=== PATIENT | female | born 1975 | race African-American/Black ===

== ENCOUNTER 2021-10-14 17:44 | Outpatient (CLI) | payer OTHER, SELFPAY ==
--- NOTE | 2021-10-14 17:54 | CT_ITS ---
STUDY: CT CHEST, ABDOMEN T PELVIS WITH CONTRAST REASON FOR EXAM: Female, 46 years old. staging for rectal squamous cancer RADIATION DOSAGE (If Supplied By Facility): CTDIvol = ( 11.86 ) mGy, DLP = ( 1071.09 ) mGycm TECHNIQUE: Transaxial imaging was performed following intravenous administration of Oral and amp; IV Readi-CAT and amp; 100mL Isovue-370. Individualized dose optimization techniques were used for this CT. COMPARISON: No relevant priors. FINDINGS: CHEST The lungs are normal. There is no demonstrated pleural abnormality. Normal heart and pericardium. Normal mediastinum. Normal hilar regions. Normal unenhanced pulmonary arteries. Normal aorta arch and descending thoracic aorta. Dorsal spine demonstrates mild spondylosis. There is no demonstrated abnormality of the visualized upper abdomen. ABDOMEN The visualized lung bases are unremarkable. The visualized portions of the heart are within normal limits. Normal liver. Normal gallbladder and extrahepatic biliary system. Normal spleen. Normal pancreas. Normal bilateral adrenal glands. Normal right kidney. Tiny nonobstructing left renal calculus. Normal visualized stomach. Normal small intestine. There is thickening of the oconnell of the rectum which may be consistent with clinical history of rectal carcinoma.. The appendix is visualized and appears normal. Normal abdominal aorta. Normal inferior vena cava. Normal retroperitoneum. Normal abdominal wall. Normal osseous structures. PELVIS Normal urinary bladder. There is no pelvic fluid. There is no pelvic lymphadenopathy Normal visualized pelvic arteries. Uterus not visualized which may be consistent with hysterectomy. Tiny right adnexal cyst likely ovarian measuring approximately 1 cm in size. Normal abdominal wall. Lumbar spine demonstrates mild spondylosis.. CT/CT Chest, Abd, Pel w/Contrast IMPRESSION: Findings which may be consistent with known rectal carcinoma.. Nonvisualization of uterus consistent with hysterectomy and probable tiny right ovarian cyst. No evidence for retroperitoneal lymphadenopathy No evidence for hepatic lung or bone metastasis. PET scan would be useful for further evaluation if clinically warranted Left nephrolithiasis Electronically Signed: Mono Adkins MD at 18:45 EST , Service support ,
== END 2021-10-14 23:59 | disposition short-term general hospital (02) ==
LOC: CT 17:46
PROVIDERS: Visit Provider Student in an Organized Health Care Education/Training Program
DX: C20 Malignant neoplasm of rectum (principal)
CPT/HCPCS: 71260; 74177; Q9967

== ENCOUNTER 2021-10-19 16:07 | Outpatient (CLI) | payer OTHER, SELFPAY ==
--- NOTE | 2021-10-19 16:08 | MRI_ITS ---
EXAM: MR PELVIS WITHOUT AND WITH INTRAVENOUS CONTRAST : 1975 CLINICAL INDICATION: squamous cancer of the rectum -- eval extent of disease TECHNIQUE: Multiplanar and multisequence MR images of the pelvis without and with intravenous contrast. This report was created using [employer] report [employer] technology. CONTRAST: IV 15ml Dotarem COMPARISON: CT abdomen October 14, 2021 FINDINGS: BOWEL: A 2.5 cm mass located within the proximal rectum extending to the superior portion of the anal sphincter without discrete involvement of the sphincter. The lesion appears to involve the anterior portion of the muscularis propria without apparent involvement of the perirectal fat consistent with a T2 lesion. APPENDIX: No evidence of acute appendicitis. INTRAPERITONEAL SPACE: Unremarkable. No ascites or other fluid collection. BLADDER: Urinary bladder is normal. REPRODUCTIVE: 2.2 cm right ovarian lesion suggestive of a corpus luteum. Ovaries are otherwise unremarkable. Uterus is absent. Vaginal cavity appears normal. SUBPERITONEAL SPACE: 8 mm left posterior perirectal nodule noted as well as 7 mm nodule posteriorly within the right perirectal space no uncertain significance. BONES/JOINTS: Unremarkable. SOFT TISSUES: No abdominal wall hernia. LYMPH NODES: No parailiac lymphadenopathy. MRI/Pelvis W/WO Contrast IMPRESSION: 2.5 cm rectal mass extending to the superior portion of the anal sphincter without obvious involvement of the sphincter. Tumor extension to the muscularis propria consistent with a T2 lesion. No involvement of the adjacent mesorectal fat. Subcentimeter perirectal nodes of uncertain significance. at 1235 Reported and signed by: Salvatore Dang MD Electronically Signed: Salvatore Dang MD at 12:34 EST ,
--- NOTE | 2021-10-19 16:08 | MRI_ITS ---
STUDY: MRI ABDOMEN WITH AND WITHOUT CONTRAST REASON FOR EXAM: Female, 46 years old. suspective liver hemangioma, has been stable TECHNIQUE: Standardized fat and water weighted pulse sequences were obtained in all 3 orthogonal planes post contrast administration. IV Yes YES was administered for the contrast portion of the examination. COMPARISON: None. FINDINGS: The visualized lung bases are unremarkable. The visualized portions of the heart are within normal limits. 3 cm round T1 isointense, T2 slightly hyperintense mass of the medial aspect of the posterior segment right lobe of the liver between the right portal vein and inferior vena cava most conspicuous on the arterial phase images which demonstrates diffuse contrast enhancement that gradually decreases over time with less conspicuity on the portal venous phase images and normal enhancement on the delayed nephrographic phase images. This is not consistent with a hemangioma. Differential diagnosis includes hepatic adenoma which is favored, focal nodular hyperplasia, hepatocellular carcinoma, or solitary metastasis. Normal gallbladder and extrahepatic biliary system. Normal spleen. Normal pancreas. Normal bilateral adrenal glands. Normal right kidney. Normal left kidney. Normal visualized stomach. Normal small intestine. Normal colon. The appendix is visualized and appears normal. Normal abdominal aorta. Normal inferior vena cava. Normal retroperitoneum. Normal abdominal wall. Normal osseous structures. MRI/MRI Abd WITH and W/O Contrast IMPRESSION: 3 cm enhancing mass in the medial posterior segment right lobe of the liver adjacent to the inferior vena cava. Differential diagnosis includes hepatic adenoma, focal nodular hyperplasia, hepatocellular carcinoma, or solitary metastasis. Electronically Signed: Steven Echevarria MD at 8:48 EST Tel , Service support ,
== END 2021-10-19 23:59 | disposition short-term general hospital (02) ==
LOC: MRI 16:08
PROVIDERS: PCP Nurse Practitioner Primary Care; Referring Provider Nurse Practitioner Primary Care; Visit Provider Nurse Practitioner Primary Care
DX: K76.9 Liver disease, unspecified (principal)
CPT/HCPCS: 72197; 74183; A9575; A4216

== ENCOUNTER 2021-10-23 07:25 | Day surgery (SDC) | payer OTHER, SELFPAY ==
[2021-10-23] VITALS (7 sets, daily range): BP systolic 103–123; BP diastolic 76–81; PULSE 68–77; RESP 16; TEMP 36.3–37; O2SAT 100; BMI 26.0
--- NOTE | 2021-10-23 07:44 | HP.PCM_ITS ---
History and Physical Date of Admission: 10/23/21 Date of Service: 10/15/21 MR#:[id number]: FABBY ELKINS [id number] #:[id number]:1975 Provider:Pina Nance/Sex: 46/F [facility] Vital Signs 10/15/21 09:09 Height 5 ft 8 in Weight: 166 lb 2 oz BMI 25.2 BP 142/81 H Blood Pressure Location Rt brachial Position Sitting Respiration 18 Pulse 91 Pulse Source NIBP Temp 97.9 F Temp Source Temporal Pulse Oximetry (%) 98 Oxygen Delivery Method room air Intake Visit Reasons: Port Placement Consult Chief Complaint: port insertion Spike Driver Required: No Is patient in pain?: No Allergies lisinopril Allergy (Verified 10/15/21 09:10) ANTIHYPERTENSIVE peanut Allergy (Verified 10/15/21 09:10) Angioedema shellfish derived Allergy (Verified 10/15/21 09:10) Angioedema Medications omeprazole 40 mg capsule,delayed release 40 mg PO DAILY 10/07/21 [History Confirmed 10/15/21] polyethylene glycol 3350 17 gram/dose oral powder 17 g PO DAILY 10/07/21 [History Confirmed 10/15/21] linaclotide 145 mcg capsule 145 mcg PO QAM 10/08/21 [History Confirmed 10/15/21] multivitamin 1 tab PO DAILY 10/13/21 [History Confirmed 10/15/21] lidocaine-prilocaine 2.5 %-2.5 % topical cream 1 applic TOPICAL ONCE PRN 30 Days #30 g 10/14/21 [Rx Confirmed 10/15/21] ondansetron 4 mg disintegrating tablet 4 mg PO Q8H PRN #30 tab 10/14/21 [Rx Confirmed 10/15/21] Is last menstrual period known: No Post menopausal: Yes Patient : No PFSH Medical History Encounter for education GERD (gastroesophageal reflux disease) Hypertension Liver lesion Surgical History History of hysterectomy Family History Grandfather Colon cancer Mother Diabetes Hypertension Grandmother Kidney disease Father Cancer unsure of exact diagnosis (maybe lung/colon) Social History Smoking Status: Light Smoker (<10/day) Tobacco: How many years used: 20 alcohol intake: former substance use type: marijuana HPI HPI HPI: FABBY ELKINS, is a 46 F who presents to the office today for port placement due to squamous cell carcinoma of the rectum patient also has a liver lesion seen on CT in August. ROS General General: Yes weight change and fatigue HEENT HEENT: No difficulty swallowing, eye surgery or swollen glands Skin Skin: No rash or changing moles Musc Musculoskeletal: No back problems, arthritis, rheumatoid arthritis, gout or joint pain Cardio Cardiovascular: Yes high blood pressure; No murmur, pacemaker, heart disease, atrial fibrillation, heart attack, heart stent, palpitations, shortness of breat with exertion or chest pain Psych Psychiatric: No depression or anxiety Resp Respiratory: No shortness of breath, No sleep apnea, No cough, No COPD, No asthma, No emphysema and No wheezing Gastro Gastrointestinal: Yes abdominal pain, No nausea or vomiting, No diarrhea, Yes constipation, Yes blood in stool, Yes acid reflux, No hemorrhoids, No ulcers, No gallbladder problem and Yes black,tarry stools Additional Details: Nausea, no vomiting Pepe Hematologic: No blood thinners, No blood disorders, No bleeding and No anemia Neuro Neurologic: No abnormal speech and No confusion Exam Const General: cooperative, healthy appearing, comfortable and no acute distress Neck Neck: normal visual inspection and supple Chest Other: Normal inspection and palpation of bilateral upper chest Resp Effort & Inspection: normal respiratory effort Cardio Rate: regular rate GI Inspection: non-distended Palpation: soft, no guarding and nontender Skin General: no rashes or lesions noted Neuro General: patient oriented x3 Psych Affect: normal affect COVID (Procedure Consent) Procedure Criteria Procedure Criteria: Yes Elective The surgeon/proceduralist and patient have discussed in detail the risk of exposure to and/or potential harm posed by the COVID-19 virus with having a surgery/procedure at this time versus the risk of delaying the surgery/procedure. It is not possible to know either the risk of delaying the surgery or procedure or chance of getting an infection with perfect accuracy, but a joint decision was made between the patient and the surgeon/proceduralist to proceed at this time with the scheduled surgery/procedure as indicated on the consent form. Assessment and Plan Assessment and Plan (1) Encounter for insertion of venous access port: Status: Acute (2) Squamous cell carcinoma of rectum: Status: Acute (3) Liver lesion: Status: Chronic Comment: First noted in March 2017, stable by imaging August 2021. Plan - Dr. Aggie Moon MD: Patient has had her COVID-vaccine. I have discussed above with the patient- Port-a-Cath placement. Right possible left?we will plan for next week/the week of 10/19 for port placement Patient has been counseled as to the risks/benefits of the procedure. I have explained the risks of the surgery, including but not limited to: infection, bleeding, injury to any blood vessels/nerves, injury to lungs (such as pneumothorax or hemothorax and need for chest tube), not having any access, nonfunctioning of port due to thrombosis, infection of port, etc. the patient understands and agrees to proceed. I have answered all the patient's questions to the patient?s satisfaction and the patient has no further questions. Aggie Moon M.D. Pager: [phone] [facility] [address] [place] [address], [facility], [address] [place] [address] Office: [phone] Coding Level of Care Code Off vis,new,level 3 Diagnoses Encounter for insertion of venous access port Z45.2 Squamous cell carcinoma of rectum C20 Liver lesion K76.9 10/15/21 0923<Electronically signed by Aggie Moon MD>Date Aggie Moon MD
[2021-10-23] MEDS: Lactated Ringers 1,000 ML 30 ML IV (08:08)
[2021-10-23] MEDS: Cefazolin 2 GM in 0.9% Normal Saline 100 ML IV (09:26)
--- NOTE | 2021-10-23 09:56 | OP.PCM_ITS ---
Report of Operation Date of Procedure: 10/23/21 Pre-Operative Diagnosis: z45.2, squamous cell carcinoma of the rectum Post-Operative Diagnosis: Same Surgery/Procedure Performed:: 1. Placement of right IJ Port-A-Cath 2. Use of fluoroscopy 3. Use of ultrasound Surgeon: Aggie Moon Type of Anesthesia: Local MAC Anesthesiologist: Lenin Smith Special Medications: Ancef 2 g IV x1 Specimen's removed: None Description of Procedure: After informed consent was given, the patient was brought to the operating room and placed in the supine position. Appropriate time out protocol was followed. Patient was then given IV conscious sedation for anesthesia. The patient's right upper chest and neck were then prepped with a surgical skin preparation and sterile surgical drapes were placed. After proper landmarks were ascertained, the skin at the upper right chest area was then infiltrated with 1:1 mixture of 1% lidocaine with epinephrine and 0.5% marcaine. A needle trocar was then inserted into the right internal jugular vein with ultrasound guidance-multiple vessels were viewed with u/s and the right IJ was chosen-- and there was good aspiration of venous blood. A wire was then threaded into the needle trocar and this was visualized under fluoroscopy to ensure that the wire was in the superior vena cava. Once this was done, then the needle trocar was removed. A small skin vee was made with an 11 blade knife at the wire entrance site. The dilator with the introducer sheath anabell ched was then placed over the wire into the right internal jugular vein via the Seldinger technique and this was visualized under fluoroscopy. The dilator and sheath were in proper position as visualized by fluoroscopy. A subcutaneous pocket was then created caudad to the catheter insertion site. A transverse skin incision was made after the skin and subcutaneous tissues were infiltrated with local anesthetic. Blunt dissection was then used to create a space large enough for placement of the subcutaneous port. The catheter was then tunneled into the subcutaneous pocket. The wire and dilator were then removed. The catheter was then threaded into the introducer sheath and was positioned with its tip at the junction of the superior vena cava and the right atrium as visualized under fluoroscopy. The excess catheter was transected. The catheter was then attached to the subcutaneous port using manufacturers guidelines. The catheter was flushed with a heparin saline mixture prior to placement. Hemostasis was carefully controlled with electrocautery. The port was sutured to the subcutaneous fascia using 2-0 Vicryl suture at two sites. The port was then placed in the subcutaneous pocket. The incision were reapproximated with interrupted subdermal 3-0 vicryl sutures. The skin was reapproximated with 3-0 nylon suture in a interrupted fashion. Steristrips were used for reinforcement of the skin closure at IJ insertion site and a sterile opsite dressings were applied. The patient tolerated the procedure well. Grafts/Implants Used: [employer] PowerPort isp M.R.I. 6Fr Lot [id number]
--- NOTE | 2021-10-23 09:58 | EX.PCM.DISCH ---
Discharge Instructions Procedure Port-A-Cath Diet Discharge Diet: Light diet - advance as tolerated Activity May shower in (days): 5 (Keep port site clean and dry x5 days. Neck incision okay to get wet after 1 day. Okay to lower shower and upper sponge bath. OR okay to taper off port site with a Ziploc bag to shower) Lifting Restrictions: No lifting > 15 pounds for 3 days with the arm on the side of the port Dressing / Incision Call your doctor if your incision/area has: Continuous Slow Oozing, Sudden Increased Bleeding, Increased Pain/ Swelling, Increased Redness, Foul Smelling Discharge and Swelling at the incision site Call your doctor if you observe: Fever of 101 or Higher Change Dressing in: 2 days Follow Up Care Please Follow Up With: Aggie Moon MD When: In 10 days for permanent suture removal?call office for appointment Test Results: Test results from this visit will be discussed in further detail at your follow-up appointment, if applicable. Discharge Plan Admission Attending Provider: Aggie Moon Primary Care Provider: Paco Saul NP Discharge Orders/Prescriptions Prescriptions: Continued Linzess 145 mcg capsule 145 mcg PO QAM RF: 0 omeprazole 40 mg capsule,delayed release(DR/EC) 40 mg PO DAILY RF: 0 polyethylene glycol 3350 [Miralax] 17 gram/dose powder 17 g PO BID RF: 0 multivitamin Tablet 1 tab PO DAILY RF: 0 lidocaine-prilocaine 2.5-2.5 % cream 1 applic topical ONCE PRN (Reason: port access) 30 Days Qty: 30 RF: 2 ondansetron 4 mg tablet,disintegrating 4 mg PO Q8H PRN (Reason: nausea and vomiting) Qty: 30 RF: 2 Referrals / Follow Up: Paco Saul NP, [employer] GASIFICATION TECHNICIAN-C [Primary Care Provider] - Disposition Disposition (needs filled in before D/C Order can be placed): Home, Self Care
--- NOTE | 2021-10-23 10:07 | RAD_ITS ---
STUDY: X-RAY CHEST REASON FOR EXAM: Female, 46 years old. Port -- pacu TECHNIQUE: Single AP portable view of the chest. COMPARISON: None. FINDINGS: EKG electrodes are seen. A right-sided portacatheter is present with the tip at the junction of the superior vena cava and right atrium. The lungs are clear and expanded. There is no demonstrated pleural abnormality. Normal size heart. Normal mediastinum and bradley. Normal visualized pulmonary arteries. Normal visualized aortic arch and descending thoracic aorta. Normal visualized thoracic spine. Normal visualized ribs, clavicles, and shoulders. There is no demonstrated abnormality of the visualized soft tissue structures of the upper abdomen. RAD/CXR for Line Placement IMPRESSION: The tip of the right francine catheter is at the junction of the superior vena cava and right atrium. Electronically Signed: Hal Fontanez MD at 10:41 EST ,
== END 2021-10-23 23:59 | disposition home or self-care (01) ==
LOC: SDC 07:30 → AC 07:30
PROVIDERS: PCP Nurse Practitioner Primary Care; Referring Provider Surgery; Visit Provider Surgery
PROC: (CPT 36561; principal; 2021-10-23 08:45)
DX: Z45.2 Encounter for adjustment and management of vascular access device (principal); C20 Malignant neoplasm of rectum; K76.89 Other specified diseases of liver; I10 Essential (primary) hypertension; K21.9 Gastro-esophageal reflux disease without esophagitis; F32.A Depression, unspecified; G25.81 Restless legs syndrome; Z78.0 Asymptomatic menopausal state; Z87.19 Personal history of other diseases of the digestive system; Z79.899 Other long term (current) drug therapy; F17.200 Nicotine dependence, unspecified, uncomplicated
CPT/HCPCS: 36561; 00532; 71045; 77001; J7120; J2405

== ENCOUNTER 2021-12-15 12:31 | Outpatient (CLI) | payer OTHER, SELFPAY ==
[2021-12-15] MEDS: 0.9% Saline Lock 10 ML Syringe IV (12:30)
[2021-12-15] MEDS: 0.9 % NaCl (Sterile) Posiflush 10 mL IV (12:35)
--- NOTE | 2021-12-15 12:35 | CT_ITS ---
STUDY: CTA CHEST REASON FOR EXAM: Female, 46 years old. R/o PE, hemoptysis RADIATION DOSAGE (If Supplied By Facility): CTDIvol = ( 9.99 ) mGy, DLP = ( 375.31 ) mGycm TECHNIQUE: The examination was performed with the intravenous administration of IV 100mL Isovue-370. Post-processing of the angiographic images was performed, with multiplanar reformation and 3D reconstruction. Individualized dose optimization techniques were used for this CT. COMPARISON: Comparison is made with prior examination dated 10/14/2021. FINDINGS: Stable small benign-appearing bilateral axillary lymph nodes. A right-sided Port-A-Cath are seen with the tip in the superior vena cava. Normal enhancement of the main pulmonary artery and right and left pulmonary arteries. Normal enhancement of the bilateral peripheral pulmonary arteries. There is no demonstrated pulmonary embolism. Normal thoracic aorta and visualized great vessels. There is no demonstrated aortic dissection. Normal heart and pericardium. Normal mediastinum. Normal hilar regions. Normal visualized trachea and bronchi. The lungs are well expanded. Normal pulmonary parenchyma. Normal pleura. Normal chest wall structures. There are degenerative changes of thoracic spine. Normal visualized upper abdomen. CT/CTA Chest W/WO Contrast IMPRESSION: Normal CTA chest examination, without a demonstrated pulmonary embolism or arterial dissection. Electronically Signed: Hal Fontanez MD at 13:38 EDT ,
== END 2021-12-15 23:59 | disposition home or self-care (01) ==
PROVIDERS: PCP Nurse Practitioner Primary Care; Referring Provider Nurse Practitioner Family; Visit Provider Nurse Practitioner Family
DX: R04.2 Hemoptysis (principal); C20 Malignant neoplasm of rectum
CPT/HCPCS: 71275; Q9967; A4216

== ENCOUNTER → 2022-02-08 | Outpatient (CLI) | payer OTHER, SELFPAY ==
--- NOTE | 2022-02-08 15:00 | CT_ITS ---
EXAM: CT CHEST, ABDOMEN AND PELVIS WITH INTRAVENOUS CONTRAST CLINICAL INDICATION: RECTAL CANCER TECHNIQUE: Helically acquired images were obtained of the chest, abdomen and pelvis with intravenous contrast. This CT exam was performed using one or more of the following dose reduction techniques: automated exposure control, adjustment of the mA and/or kV according to patient size, and/or use of iterative reconstruction technique. This report was created using [employer] report generation technology. CONTRAST: IV 100mL Isovue-300 RADIATION DOSE: CTDIvol = 14.15 mGy, DLP = 827.26 mGy-cm COMPARISON: Dec 15 2021 12:57pm CTA CHEST. PET Oct 21 2021 9:30am REPORT ONLY NO IMAGES. CT TX 10.23.21 FINDINGS: CHEST: LUNGS AND PLEURAL SPACES: Unremarkable. No mass. No consolidation or edema. No pleural effusion or thickening. No pneumothorax. HEART: Unremarkable. Heart size is normal. No pericardial effusion. No significant coronary artery calcifications. MEDIASTINUM: Unremarkable. No mediastinal or hilar adenopathy. Esophagus is unremarkable. No hiatal hernia. THYROID: Unremarkable. No thyroid lesions. ABDOMEN: LIVER: There is hepatomegaly with diffuse hepatic enlargement. GALLBLADDER AND BILE DUCTS: Unremarkable. No calcified gallstones. No gallbladder distention or wall edema. No intra- or extrahepatic biliary ductal dilation. PANCREAS: Unremarkable. No focal cystic or solid mass. SPLEEN: Unremarkable. Normal size without focal cystic or solid mass. ADRENALS: Unremarkable. No nodules. KIDNEYS AND URETERS: Non obstructive 2 mm left renal parenchymal stones. Normal renal size and position. STOMACH AND BOWEL: Stool throughout the colon. This can suggest constipation. Diffuse wall thickening of the anus and rectum suggesting underlying mass. No stomach or bowel distention. PELVIS: APPENDIX: The appendix is visualized and appears normal. BLADDER: Normal urinary bladder. REPRODUCTIVE: There is absence of the uterus consistent with a prior hysterectomy. CHEST, ABDOMEN and PELVIS: INTRAPERITONEAL SPACE: Unremarkable. No ascites or other fluid collection. No free air. BONES/JOINTS: Abnormal sclerotic focus along the superior endplate on the left side of L3. This is concerning for metastatic disease. There are multi-level degenerative changes of the thoracic spine. There are diffuse degenerative changes of the visualized lumbar spine. Discogenic endplate changes at L2-3. SOFT TISSUES: There is an umbilical hernia containing fat. VASCULATURE: Unremarkable. Aorta is non-dilated. No aortic dissection. No obvious central pulmonary embolism although this study was not performed with the pulmonary embolism protocol. LYMPH NODES: Unremarkable. No enlarged lymph nodes. TUBES, LINES AND DEVICES: There is a right Port-A-Cath and/or mediport in place. The tip is in the superior vena caval - atrial junction. CT/CT Chest, Abd, Pel w/Contrast IMPRESSION: 1. There is hepatomegaly with diffuse hepatic enlargement. 2. Stool throughout the colon. This can suggest constipation. 3. There focal wall thickening of the anus and rectum suggesting underlying mass. 4. Abnormal sclerotic focus along the superior endplate on the left side of L3. This is concerning for metastatic disease. Electronically Signed: Robles Pierre MD at 20:25 EDT ,
[2022-02-08] MEDS: 0.9% Saline Lock 10 ML Syringe IV (15:21)
== END | disposition home or self-care (01) ==
PROVIDERS: PCP Nurse Practitioner Primary Care; Referring Provider Internal Medicine Hematology & Oncology; Visit Provider Internal Medicine Hematology & Oncology
DX: C20 Malignant neoplasm of rectum (principal)
CPT/HCPCS: 71260; 74177; Q9967; A4216

== ENCOUNTER → 2022-02-24 | Outpatient (CLI) | payer OTHER, SELFPAY ==
--- NOTE | 2022-02-24 07:41 | NM_ITS ---
CLINICAL: Female, 46 years old. H/O RECTUM CA ABN L3 ON CT, ? METS WHOLE BODY NUCLEAR BONE SCAN TECHNIQUE: Following the IV administration of 25.7 mCi of Tc MDP, whole body bone imaging was performed with a gamma camera following a three hour delay. COMPARISON STUDIES : NM - None. CR - Not available for review at this time. CT - comparison is made with prior CT scan the abdomen dated 02/08/2022. MR - Not available for review at this time. US - Not available for review at this time. FINDINGS: There is a normal concentration of radiopharmaceutical throughout the axial and appendicular skeletal system without either a focal decrease or increase in uptake. NM/Bone Scan Whole Body IMPRESSION: Normal whole body nuclear bone scan. Electronically Signed: Hal Fontanez MD at 12:51 EDT ,
[2022-02-24] MEDS: 0.9% Saline Lock 10 ML Syringe IV (08:05)
== END | disposition home or self-care (01) ==
LOC: NM 07:39
PROVIDERS: PCP Nurse Practitioner Primary Care; Visit Provider Internal Medicine Hematology & Oncology
DX: C20 Malignant neoplasm of rectum (principal)
CPT/HCPCS: 78306; A9503

== ENCOUNTER 2022-03-22 14:24 | Emergency (ER) | payer OTHER, SELFPAY ==
[2022-03-22 14:25] VITALS: BP 135/96; PULSE 105; RESP 16; TEMP 37.3; O2SAT 99; BMI 25.8
--- NOTE | 2022-03-22 15:40 | EKG12_ITS ---
Test Reason : FEVER Blood Pressure : / mmHG Vent. Rate : 093 BPM Atrial Rate : 093 BPM P-R Int : 160 ms QRS Dur : 070 ms QT Int : 344 ms P-R-T Axes : 046 037 031 degrees QTc Int : 427 ms Normal sinus rhythm Normal ECG Confirmed by CATE MCDANIELS, LEONOR ([id number]), publication editor DAVID JUARES ([id number]) on 03/24/2022 8:47:53 AM Referred By: PEDRO/LAKISHA Confirmed By:LEONOR ESPOSITO MD
--- NOTE | 2022-03-22 15:42 | EX.ED.DYSGE1 ---
HPI History of Present Illness Chief Complaint: Fever Informant: patient Narrative Narrative: Patient presents with generally not feeling well. She states she has been doing pretty well recently. But as of this morning she started with several episodes of diarrhea. She states it was yellow and foul-smelling. No blood. She has had some mild abdominal cramping but is not having any pain. She had some nausea but no vomiting. Highest temperature is about 100.6. She states occasionally she coughs but is more just clearing her throat. She is not short of breath or having chest pain. She does urinate frequently and is somewhat uncomfortable but that has been chronic since she had radiation at the beginning of the year for colorectal cancer. Her last chemo was back in November. Her last antibiotics were 2 to 3 days of Augmentin about 1 month ago. She stopped it due to GI upset. She has never had C. difficile colitis. This patient does have a history of colorectal cancer diagnosed this year. She had multiple radiation treatments and then chemo. She is following up with her [facility] surgeon in April. She has not had any surgery at this point. She does have some pain around the bladder and rectum from the radiation but this is not new or different in any way. Patient feels that this is likely due to not taking care of herself. She states after she got over the chemo, she really jumped back into her old ways. She started smoking again. She has been drinking alcohol. She states she has been eating out and eating a lot of fast food. She is not eating well. She is not drinking fluids right. She is working full-time. She just feels as though she is running herself down and it finally caught up today. [facility] Medical History Alcohol use Chills Chronic bronchitis CINV (chemotherapy-induced nausea and vomiting) Depression Diarrhea due to drug Easy bruising Encounter for education Excessive bleeding GERD (gastroesophageal reflux disease) Hemoptysis History of echocardiogram History of IBS History of stress test Hypertension Leg cramps Liver lesion Marijuana use Mucositis (ulcerative) due to antineoplastic therapy Oral candidiasis Port-A-Cath in place Restless legs Smoker UTI (urinary tract infection) Home Medications polyethylene glycol 3350 17 gram/dose oral powder (Miralax) 17 g PO BID 10/07/21 [History Last Taken Unknown] linaclotide 145 mcg capsule (Linzess) 145 mcg PO QAM 10/08/21 [History Last Taken Unknown] multivitamin 1 tab PO DAILY 10/13/21 [History Last Taken Unknown] lidocaine-prilocaine 2.5 %-2.5 % topical cream 1 applic topical ONCE PRN port access 30 days #30 grams 10/14/21 [Rx Last Taken Unknown] ondansetron 4 mg disintegrating tablet 4 mg PO Q8H PRN nausea and vomiting #30 tabs 10/14/21 [Rx Last Taken Unknown] MAGIC MOUTH WASH (BMX) 180 mL suspension 15 ml PO .Q6HR PRN mouth sores #180 mL 11/10/21 [Rx Last Taken Unknown] lidocaine 5 % topical ointment 1 applic topical TID PRN pain #60 grams 11/18/21 [Rx Last Taken Unknown] nystatin 100,000 unit/mL oral suspension 5 ml PO Q6H #473 mL 11/23/21 [Rx Last Taken Unknown] silver sulfadiazine 1 % topical cream 1 applic topical TID desquamation #85 grams 12/07/21 [Rx Last Taken Unknown] nirmatrelvir 300 mg (150 mg x 2)-ritonavir 100 mg tablet (EUA) (Paxlovid 300 mg () See Rx Instructions PO .COMPLEX #30 tabs 03/22/22 [Rx Last Taken Unknown] Allergy/AdvReac Type Severity Reaction Status Date / Time lisinopril Allergy ANTIHYPERTE Verified 03/22/22 14:27 NSIVE peanut Allergy Angioedema Verified 03/22/22 14:27 shellfish derived Allergy Angioedema Verified 03/22/22 14:27 Family History Grandfather Colon cancer Mother Diabetes Hypertension Grandmother Kidney disease Father Cancer unsure of exact diagnosis (maybe lung/colon) Surgical History History of colonoscopy History of esophagogastroduodenoscopy (EGD) History of hysterectomy Social History Smoking Status: Current every day smoker tobacco type: cigarettes Tobacco: How many years used: 20 alcohol intake: former substance use type: marijuana ROS ROS ED Constitutional Constitutional ED: Reports chills and other Details: See history of present illness. Patient states she also gets chills sometimes at night but that has been going on for well over a month unchanged. Eyes Eyes: Denies blurry vision or change in vision ENT ENT ED: Denies rhinorrhea or sore throat Cardiovascular Cardiovascular: Denies chest pain or palpitations Respiratory/Chest Respiratory/Chest: Denies cough, dyspnea or sputum Gastrointestinal Gastrointestinal: Reports abdominal pain, diarrhea and nausea; Denies constipation, melena or vomiting Genitourinary Genitourinary ED: Reports dysuria; Denies urinary frequency Musculoskeletal Musculoskeletal: Reports arthralgias, myalgias and other Details: Patient also admits that today she just has lots of diffuse myalgias. No one area is especially sore. Integumentary Denies rash Neurologic Neurologic: Denies paresthesias or weakness Endocrine Endocrinology: Denies polydipsia or polyuria Hematologic/Lymphatic Hematologic/Lymphatic: Denies anemia EXAM Physical Exam Const Vital Signs: 03/22/22 14:25 03/22/22 15:24 Temperature 99.2 F H Temperature Source Temporal Pulse Rate 105 H Respiratory Rate 16 Respiratory Effort Short of Breath Blood Pressure 135/96 H Blood Pressure Mean 109 Pulse Ox 99 Oxygen Delivery Method Room Air Positive well nourished Constitutional Narrative: Despite her history and story, she is nontoxic in appearance. However she does look like she has very dry mucous membranes. General Appearance ED: NAD HEENT Reports dry mucous membranes HEENT Narrative: No sinus tenderness. No nasal drainage. Mouth ED: Yes dry mucous membranes Mouth: dry mucous membranes Eyes EOMs intact bilaterally General Eye ED: Negative for scleral icterus Neck supple and no JVD Resp normal respiratory effort and clear to auscultation bilaterally Resp Narrative: No pain with deep breath. No wheezing without rales or rhonchi Auscultation: Negative for rales or rhonchi Cardio regular rhythm and no murmurs Rate: tachycardic GI non-tender and non-distended GI Narrative: Abdomen is soft. Absolutely no tenderness anywhere. Bowel sounds might be just slightly increased. Auscultation: hyperactive bowel sounds Back/Spine no CVA tenderness Extremity normal to inspection Extremity Narrative: No edema cords or asymmetry. No tenderness. Neuro oriented x3 Psych mental status grossly normal Skin no rashes or lesions noted MDM MDM MDM Narrative Medical decision making narrative: Patient's blood work shows minimal anemia. White counts normal. Electrolytes are normal. LFTs lactic acid is normal. Urine shows a few red cells but she is known this. Her COVID PCR is positive. We discussed options. We will proceed with backslid. She is currently on no medications at all. However, she did have chemotherapy back in November. She had original Moderna series but no boosters. I think this is somebody who may have higher benefit than risk from the medicines. Lab Data Attestation: I reviewed the patient's lab results. Labs: Laboratory Results - last 24 hr 03/22/22 03/22/22 03/22/22 15:45 15:45 15:45 WBC 4.7 RBC 3.68 L Hgb 11.6 L Hct 35.8 L MCV 97.3 MCH 31.5 MCHC 32.4 RDW Std Deviation 47.4 H RDW Coeff of Sandrine 13.2 Plt Count 219 MPV 8.2 Immature Gran % (Auto) 0.400 Neut % (Auto) 77.2 H Lymph % (Auto) 9.5 L [place]asta % (Auto) 12.3 H Eos % (Auto) 0.2 Baso % (Auto) 0.4 Absolute Neuts (auto) 3.7 Absolute Lymphs (auto) 0.45 L Nucleated RBC % 0 Differential Comment SEE COMMENT Platelet Estimate ADEQUATE RBC Morphology N CHROM Anisocytosis 1+ Macrocytosis 1+ Sodium 138 Potassium 3.5 Chloride 106 Carbon Dioxide 26.0 Anion Gap 6 BUN 8 Creatinine 0.70 Estim Creat Clear Calc 100.22 Est GFR (MDRD) Af Amer 116 Est GFR (MDRD) Non-Af 96 BUN/Creatinine Ratio 11.5 Glucose 92 Lactic Acid 0.5 Calcium 9.0 Total Bilirubin 0.40 AST 15 ALT 15 Alkaline Phosphatase 54 Total Protein 7.1 Albumin 3.6 Globulin 3.5 Albumin/Globulin Ratio 1.0 Urine Color Urine Clarity Urine pH Ur Specific [place] Urine Protein Urine Glucose (UA) Urine Ketones Urine Occult Blood Urine Nitrite Urine Bilirubin Urine Urobilinogen Ur Leukocyte Esterase Urine RBC Urine WBC Ur Squamous Epith Cells Urine Bacteria Urine Mucus COVID-19 (PUNEET) 03/22/22 03/22/22 15:45 17:55 WBC RBC Hgb Hct MCV MCH MCHC RDW Std Deviation RDW Coeff of Sandrine Plt Count MPV Immature Gran % (Auto) Neut % (Auto) Lymph % (Auto) Shasta % (Auto) Eos % (Auto) Baso % (Auto) Absolute Neuts (auto) Absolute Lymphs (auto) Nucleated RBC % Differential Comment Platelet Estimate RBC Morphology Anisocytosis Macrocytosis Sodium Potassium Chloride Carbon Dioxide Anion Gap BUN Creatinine Estim Creat Clear Calc Est GFR (MDRD) Af Amer Est GFR (MDRD) Non-Af BUN/Creatinine Ratio Glucose Lactic Acid Calcium Total Bilirubin AST ALT Alkaline Phosphatase Total Protein Albumin Globulin Albumin/Globulin Ratio Urine Color Yellow Urine Clarity Sl. Cloudy Urine pH 7.0 Ur Specific [place] 1.015 Urine Protein Negative Urine Glucose (UA) Normal Urine Ketones Negative Urine Occult Blood 150 H Urine Nitrite Negative Urine Bilirubin Negative Urine Urobilinogen Normal Ur Leukocyte Esterase Negative Urine RBC 10-25 SEEN Urine WBC 0-5 SEEN Ur Squamous Epith Cells 5-10 SEEN Urine Bacteria 2+ Urine Mucus 1+ COVID-19 (PUNEET) Detected Radiography Diagnostic Testing: Clinical Impression(s) from Imaging Studies Chest X-Ray 03/22/22 16:05 IMPRESSION: No acute cardiopulmonary abnormality. Electronically Signed: Salvatore Dang MD at 16:26 EDT , EKG Initial EKG: Comments: EKG done for generalized weakness read by me shows normal sinus rhythm with overall rate of 93. No acute ST elevation or depression. GA interval, QRS duration and QTc normal. Discharge Plan Triage Chief Complaint: Fever ED Provider: Raymundo Ruiz Dx/Rx/DC Orders Clinical Impression: COVID Instructions: Coronavirus Disease 2019 (COVID-19): Caring for Yourself or Others Prescriptions: New Paxlovid (EUA) 300 mg (150 mg x 2)-100 mg tablet See Rx Instructions .ROUTE .COMPLEX Qty: 30 0RF Rx Instructions: take TWO 150 mg tablets of nirmatrelvir with ONE 100 mg tablet of ritonavir twice daily for 5 days No Action Linzess 145 mcg capsule 145 mcg PO QAM Hold Instructions: Order Changed polyethylene glycol 3350 [Miralax] 17 gram/dose powder 17 g PO BID Hold Instructions: Order Changed multivitamin Tablet 1 tab PO DAILY lidocaine-prilocaine 2.5-2.5 % cream 1 applic topical ONCE PRN (Reason: port access) 30 Days Qty: 30 2RF ondansetron 4 mg tablet,disintegrating 4 mg PO Q8H PRN (Reason: nausea and vomiting) Qty: 30 2RF MAGIC MOUTH WASH (BMX) 180 mL suspension 15 ml PO .Q6HR PRN (Reason: mouth sores) Qty: 180 2RF Rx Instructions: diphenhydramine 12.5 mg/5 mL oral liquid 60 mL; aluminum-mag hydroxide-simethicone 400 mg-400 mg-40 mg/5 mL oral susp 60 mL; Lidocaine Viscous 2 % mucosal solution 60 mL; Per 180 mL nystatin 100,000 unit/mL suspension 5 ml PO Q6H Qty: 473 1RF Rx Instructions: swish and swallow lidocaine 5 % ointment 1 applic topical TID PRN (Reason: pain) Qty: 60 3RF Rx Instructions: apply to perianal skin prn pain silver sulfadiazine 1 % cream 1 applic topical TID Qty: 85 2RF Rx Instructions: apply a 1.5 mm thickness Primary Care Provider: Paco Saul NP Referrals: Paco Saul NP, [employer] [Primary Care Provider] - 10-14 Days if not better Disposition Disposition: Home, Self Care
[2022-03-22] MEDS: 0.9% Normal Saline 1,000 ML 1000 ML IV (15:59)
[2022-03-22] MEDS: Ondansetron 4 MG/2 ML Vial IV (15:59)
[2022-03-22 16:04] LABS: Absolute Lymphocyte Count 0.45 X10^3/uL (0.83-4.51); Absolute Neutrophil Count 3.7 X10^3/uL (2.0-7.7); Basophil# 0.02 X10^3/uL; Basophil% 0.4 % (0-1); Eosinophil# 0.01 X10^3/uL; Eosinophils% 0.2 % (0-5); Hematocrit 35.8 % (37-47); Hemoglobin 11.6 g/dL (12.0-15.0); Lymphocyte # 0.45 X10^3/ul (0.83-4.51); Lymphocyte % 9.5 % (19-41); Mean Corp Hgb Conc 32.4 g/dL (32-36); Mean Corpuscular Hgb 31.5 pg (27.0-32.0); Mean Corpuscular Volume 97.3 fL (81-99); Mean Platelet Vol. 8.2 fl (6.2-12.0); Monocyte# 0.58 X10^3/uL; Monocyte% 12.3 % (0-10); NRBC Flagged by Analyzer 0 % (0-5); Neutrophil # 3.65 X10^3/uL (2.7-7.7); Neutrophil % 77.2 % (47-70); POSITIVE DIFFERENTIAL YES; Platelet Count 219 K/mm3 (150-450); RBC Distribution Width CV 13.2 % (11.6-14.6); RBC Distribution Width SD 47.4 fl (35.1-43.9); Red Blood Count 3.68 M/mm3 (4.2-5.4); White Blood Count 4.7 K/mm3 (4.4-11.0)
--- NOTE | 2022-03-22 16:05 | RAD_ITS ---
EXAM: XR CHEST, 1 VIEW CLINICAL INDICATION: cough TECHNIQUE: Frontal view of the chest. This report was created using ID90T report generation technology. COMPARISON: None. FINDINGS: LUNGS AND PLEURAL SPACES: Unremarkable. No consolidation or edema. No pneumothorax. No effusion. HEART: Unremarkable. Normal heart size. MEDIASTINUM: Central airways and mediastinal contour are unremarkable. BONES/JOINTS: Unremarkable. SOFT TISSUES: Unremarkable. TUBES, LINES AND DEVICES: Right internal jugular central venous catheter tip in the proximal superior vena cava. RAD/Chest 1 View (Portable) IMPRESSION: No acute cardiopulmonary abnormality. Electronically Signed: Salvatore Dang MD at 16:26 EDT ,
[2022-03-22 16:08] LABS: Differential Indicated SCAN CRITERIA MET
[2022-03-22 16:20] LABS: AST(SGOT) 15 U/L (15-37); Alanine Aminotransfer ALT/SGPT 15 U/L (13-56); Albumin, Serum 3.6 g/dL (3.2-5.0); Alkaline Phosphatase 54 U/L (45-117); Anion Gap 6 (5-15); BUN 8 mg/dL (7-18); BUN/Creat Ratio 11.5 RATIO (10-20); Chloride 106 mmol/L (98-107); EST Glomerular Filtration Rate 96 mL/min (>60); Est Glom Filt Rate - Afr Amer 116 mL/min (>60); Estimated Creatinine Clearance 100.22 ml/min; Globulin 3.5 g/dL (2.2-4.2); Glucose 92 mg/dL (74-106); Potassium 3.5 mmol/L (3.5-5.1); Protein, Total 7.1 g/dL (6.4-8.2); Sodium Level 138 mmol/L (136-145)
[2022-03-22 16:24] LABS: Lactic Acid 0.5 mmol/L (0.4-1.9)
[2022-03-22] MEDS: Acetaminophen 325 MG Tablet 650 MG PO (16:47)
[2022-03-22 16:49] LABS: Platelet Estimate ADEQUATE (ADEQ)
[2022-03-22 16:50] LABS: Anisocytosis 1+; Macrocytosis 1+; Red Cell Morphology N CHROM NORMAL (NORM C&C)
[2022-03-22 18:18] LABS: Color, Urine Yellow (Yellow); Glucose, Dipstick Normal (Normal); Ketone-Dipstick Negative (Negative); Leukocyte Esterase-Dipstick Negative /ul (Negative); Nitrite-Dipstick Negative (Negative); Occult Blood-Urine 150 /ul (Negative); Protein-Dipstick Negative (Negative); Specific Gravity, Urine 1.015 (1.002-1.030); Urine Bilirubin Dipstick Negative (Negative); Urine Clarity Sl. Cloudy (Clear); Urine Urobilinogen Normal (Normal)
[2022-03-22 18:32] LABS: Red Blood Cells-Urine 10-25 SEEN /hpf (0-5); Squamous Epithelial Cells - UA 5-10 SEEN /hpf (5-10); White Blood Cells 0-5 SEEN /hpf (0-5)
[2022-03-22 18:33] LABS: Bacteria 2+ /hpf (None Seen); Mucous, Urine 1+ /hpf (<or=2+)
[2022-03-22 20:25] VITALS: BP 141/84
== END 2022-03-22 20:32 | disposition home or self-care (01) ==
PROVIDERS: Emergency Provider Emergency Medicine; PCP Nurse Practitioner Primary Care; Visit Provider Emergency Medicine
DX: U07.1 COVID-19 (principal); C19 Malignant neoplasm of rectosigmoid junction; F32.A Depression, unspecified; K21.9 Gastro-esophageal reflux disease without esophagitis; I10 Essential (primary) hypertension; G25.81 Restless legs syndrome; Z87.440 Personal history of urinary (tract) infections; Z92.21 Personal history of antineoplastic chemotherapy; Z92.3 Personal history of irradiation; Z79.899 Other long term (current) drug therapy; F17.210 Nicotine dependence, cigarettes, uncomplicated
CPT/HCPCS: 36591; 71045; 80053; 81001; 83605; 85025; 87086; 87088; 87635; 93005; 96361; 96374; 99282; J7030; J2405; U0003; U0005

== ENCOUNTER 2022-08-09 15:34 | Outpatient (CLI) | payer OTHER, SELFPAY ==
--- NOTE | 2022-08-09 15:45 | CT_ITS ---
STUDY: CT CHEST T ABDOMEN WITH CONTRAST REASON FOR EXAM: Female, 47 years old. Follow up treated SCC of rectum, eval for disease -- WILL RETURN IN 2 HOURS RADIATION DOSAGE (If Supplied By Facility): CTDIvol = ( 11.39 ) mGy, DLP = ( 932.71 ) mGycm TECHNIQUE: Transaxial imaging was performed following intravenous administration of Oral and amp;amp; IV Readi-CAT and amp;amp; 100mL Isovue-370. Individualized dose optimization techniques were used for this CT. COMPARISON: Comparison is made with prior study dated 02/08/2022. FINDINGS: CHEST A right-sided portacatheter is seen with the tip in the superior vena cava. Stable small benign-appearing bilateral axillary lymph nodes. Dense bilateral breast tissues. The lungs are normal. There is no demonstrated pleural abnormality. Normal heart and pericardium. Normal mediastinum. Normal hilar regions. Normal unenhanced pulmonary arteries. Normal aorta arch and descending thoracic aorta. There are mild degenerative changes of the thoracic spine. ABDOMEN Normal liver. Normal gallbladder and extrahepatic biliary system. Normal spleen. Normal pancreas. Normal bilateral adrenal glands. Normal right kidney. Punctate calculus in the upper pole calyx of the left kidney. Normal visualized stomach. Normal small intestine. Normal colon. The appendix is visualized and appears normal. Normal abdominal aorta. Normal inferior vena cava. Normal retroperitoneum. There is a small umbilical hernia containing fat. Discogenic endplate changes once again seen at the L2-L3 level. CT/CT Chest AND Abd W/ Contrast IMPRESSION: Stable examination. Electronically Signed: Hal Fontanez MD at 15:19 EST ,
== END 2022-08-09 23:59 | disposition home or self-care (01) ==
LOC: CT 15:37
PROVIDERS: PCP Nurse Practitioner Primary Care; Referring Provider Student in an Organized Health Care Education/Training Program; Visit Provider Student in an Organized Health Care Education/Training Program
DX: C20 Malignant neoplasm of rectum (principal); K42.9 Umbilical hernia without obstruction or gangrene
CPT/HCPCS: 71260; 74160; Q9967

== ENCOUNTER 2022-08-12 16:21 | Outpatient (CLI) | payer OTHER, SELFPAY ==
--- NOTE | 2022-08-12 16:33 | MRI_ITS ---
EXAM: MR PELVIS WITHOUT AND WITH INTRAVENOUS CONTRAST CLINICAL INDICATION: follow up treated SCC of rectum, eval for disease -- please compare to prior imaging TECHNIQUE: Multiplanar and multisequence MR images of the pelvis without and with intravenous contrast. This report was created using P[employer] report generation technology. CONTRAST: IV 15ml CLARISCAN COMPARISON: MR Pelvis dated October 19, 2021 FINDINGS: BOWEL: No evidence of a rectal mass. Anal sphincter has a normal appearance. Diverticulosis of the colon noted without evidence of acute diverticulitis. APPENDIX: No evidence of acute appendicitis. INTRAPERITONEAL SPACE: Normal. No ascites or other fluid collection. BLADDER: Urinary bladder is normal. REPRODUCTIVE: Uterus is absent. BONES/JOINTS: Normal. No suspicious lytic or blastic abnormality. SOFT TISSUES: Normal. No pelvic wall hernia. VASCULATURE: Normal vascular flow voids. LYMPH NODES: No adenopathy. MRI/Pelvis W/WO Contrast IMPRESSION: No evidence of residual or recurrent rectal neoplasm. Electronically Signed: Salvatore Dang MD at 12:24 EST ,
== END 2022-08-12 23:59 | disposition home or self-care (01) ==
LOC: MRI 16:22
PROVIDERS: PCP Nurse Practitioner Primary Care; Visit Provider Student in an Organized Health Care Education/Training Program
DX: C20 Malignant neoplasm of rectum (principal)
CPT/HCPCS: 72197; A9575

== ENCOUNTER → 2023-02-15 | Outpatient (CLI) | payer BC, SELFPAY ==
--- NOTE | 2023-02-15 14:59 | CT_ITS ---
STUDY: CT CHEST, ABDOMEN T PELVIS WITH CONTRAST REASON FOR EXAM: Female, 47 years old. F/U ANAL CANCER IV CONTRAST ONLY RADIATION DOSAGE (If Supplied By Facility): CTDIvol = ( 11.70 ) mGy, DLP = ( 1061.07 ) mGycm TECHNIQUE: Transaxial imaging was performed following intravenous administration of IV 100mL Isovue-300. Multiplanar coronal and sagittal images were reformatted. Individualized dose optimization techniques were used for this CT. COMPARISON: August 09, 2022 CT scan chest abdomen. February 08, 2022 CT scan chest abdomen and pelvis FINDINGS: CHEST The lungs are normal. There is no demonstrated pleural abnormality. Normal heart and pericardium. Normal mediastinum. Normal hilar regions. Normal unenhanced pulmonary arteries. Normal aorta arch and descending thoracic aorta. There is mild kyphosis of the thoracic spine. There are multi-level degenerative changes of the thoracic spine. There is no demonstrated abnormality of the visualized upper abdomen. There is a relatively stable appearance of the rectosigmoid junction and the perineum. ABDOMEN The visualized lung bases are unremarkable. The visualized portions of the heart are within normal limits. There is a tiny cyst within the anterior aspect of the right hepatic lobe measuring 4 mm stable since prior study. Normal gallbladder and extrahepatic biliary system. Normal spleen. Normal pancreas. Normal bilateral adrenal glands. Normal right kidney. There is a stable punctate stone left kidney. There is no hydronephrosis. Fundus of the stomach is partially decompressed. Allowing for peristalsis, wall is mildly thickened similar to the prior studies. Nonspecific low-lying appearance of the ileocecal valve. There is a decompressed appearance of the colon. There is a low lying partially stool-filled appearance of the cecum. Solid focus of stool filling the cecum and/or potentially fluid measuring up to 4.6 x 3.0 cm. The cecum is sitting directly adjacent to the right side of the rectum. There is a tortuous mildly indistinct appearance of the distal sigmoid and rectum appendix is partially visualized and appears normal. Extends in the midline pelvis. Normal abdominal aorta. Normal inferior vena cava. Normal retroperitoneum. The venous structures are prominent within the left greater than right retroperitoneum and iliac chains. There is degenerative change in the thoracolumbar spine. L2-3 there is a broad left lateral disc bulge with moderate neural foramina narrowing mild to moderate central stenosis. At L3-L4 there is a broad disc bulge and facet arthropathy moderate neural foramina narrowing mild to moderate central stenosis. At L4-L5 there is a minimal broad disc bulge no significant neural foramina narrowing or central stenosis. At L5-S1 there is disc space narrowing no significant neural foramina narrowing. There is mild degenerative change within the bilateral hip joints. PELVIS Normal urinary bladder. Normal visualized small intestine. As mentioned above there is a low-lying placenta decompressed appearance of the cecum with the exception for solid stool within the cecum. There is no pelvic fluid. There is no pelvic lymphadenopathy or mass lesion. There is absence of the uterus consistent with a prior hysterectomy. Normal visualized pelvic arteries. Normal abdominal wall. Normal osseous structures. CT/CT Chest, Abd, Pel w/Contrast IMPRESSION: Persistent low-lying appearance of the cecum probable centrally located solid stool, however, given clinical history, a less likely focal mass should be excluded. Could consider short-term interval follow-up study which could include short-term follow-up CT with oral contrast or upper GI small bowel follow-through potentially colonoscopy if appropriate. No visualized focal consolidation and pleural effusion or suspicious masses within the chest. No visualized hepatic or adrenal metastasis. Small stable 4 mm hepatic cyst. Stable Punctate stone left kidney no hydronephrosis. Mild Degenerative change of the thoracolumbar spine. Electronically Signed: Alem Paniagua MD at 8:45 EDT ,
[2023-02-15] MEDS: 0.9% Saline Lock 10 ML Syringe IV (15:42)
--- NOTE | 2023-02-15 15:43 | NURSING ---
pt no longer has port. peripheral iv started for ct scan
== END | disposition home or self-care (01) ==
PROVIDERS: PCP Nurse Practitioner Primary Care; Referring Provider Internal Medicine Hematology & Oncology; Visit Provider Internal Medicine Hematology & Oncology
DX: C20 Malignant neoplasm of rectum (principal)
CPT/HCPCS: 71260; 74177; Q9967; A4216

== ENCOUNTER → 2023-08-22 | Outpatient (CLI) | payer BC, SELFPAY ==
--- NOTE | 2023-08-22 13:18 | CT_ITS ---
EXAM: CT CHEST, ABDOMEN AND PELVIS WITH INTRAVENOUS CONTRAST CLINICAL INDICATION: F/U RECTAL CANCER IV AND ORAL CONTRAST TECHNIQUE: Helically acquired images were obtained of the chest, abdomen and pelvis with intravenous contrast. This CT exam was performed using one or more of the following dose reduction techniques: automated exposure control, adjustment of the mA and/or kV according to patient size, and/or use of iterative reconstruction technique. CONTRAST: Oral and amp; IV Redi-CAT and amp; 100mL Isovue-300 COMPARISON: CT Chest Abdomen Pelvis dated 02/15/2023 and 02/08/2022 FINDINGS: CHEST: LUNGS AND PLEURAL SPACES: Normal. No mass. No consolidation or edema. No pleural effusion or thickening. No pneumothorax. HEART: Normal. Heart size is normal. No pericardial effusion. MEDIASTINUM: Normal. No mediastinal or hilar adenopathy. Esophagus is unremarkable. No hiatal hernia. THYROID: Stable small bilateral thyroid nodules. ABDOMEN: LIVER: Stable 3 cm homogeneously contrast enhancing lesion within hepatic segment 1 likely representing hemangioma. PANCREAS: Normal. No focal cystic or solid mass. SPLEEN: Normal. Normal size without focal cystic or solid mass. ADRENALS: Normal. No nodules. KIDNEYS AND URETERS: Punctate stone along the interpole region of the left kidney again noted. Normal renal size and position. No hydronephrosis. STOMACH AND BOWEL: Normal. No bowel obstruction or ileus. No focal inflammatory change. PELVIS: APPENDIX: Appendix is visualized and normal in appearance. BLADDER: Normal. REPRODUCTIVE: Uterus is absent. CHEST, ABDOMEN and PELVIS: INTRAPERITONEAL SPACE: Normal. No ascites or other fluid collection. No free air. BONES/JOINTS: No suspicious lytic or blastic abnormality. SOFT TISSUES: Normal. No discrete abdominal or pelvic wall hernia. VASCULATURE: Normal. Aorta is non-dilated. No aortic dissection. No obvious central pulmonary embolism although this study was not performed with the pulmonary embolism protocol. LYMPH NODES: Normal. No enlarged lymph nodes. CT/CT Chest, Abd, Pel w/Contrast IMPRESSION: 1. No evidence of metastatic disease. 2. Stable 3 cm liver lesion suggestive of hemangioma. 3. Punctate left renal stone. Electronically Signed: Salvatore Dang MD at 16:25 EST ,
== END | disposition home or self-care (01) ==
LOC: CT 12:51
PROVIDERS: PCP Nurse Practitioner Primary Care; Referring Provider Internal Medicine Hematology & Oncology; Visit Provider Internal Medicine Hematology & Oncology
DX: C20 Malignant neoplasm of rectum (principal)
CPT/HCPCS: 71260; 74177; Q9967; A4216

== ENCOUNTER → 2024-02-10 | Outpatient (CLI) | payer BC, SELFPAY ==
--- NOTE | 2024-02-10 07:09 | CT_ITS ---
STUDY: CT CHEST, ABDOMEN T PELVIS WITH CONTRAST REASON FOR EXAM: Female, 48 years old. F/U RECTAL CANCER RADIATION DOSAGE (If Supplied By Facility): CTDIvol = ( 11.08 ) mGy, DLP = ( 986.93 ) mGycm TECHNIQUE: Transaxial imaging was performed following intravenous administration of Oral and amp;amp; IV Readi-CAT and amp;amp; 100mL Isovue-300. Multiplanar coronal and sagittal images were reformatted. Individualized dose optimization techniques were used for this CT. COMPARISON: Comparison is made with prior study dated August 22, 2023. FINDINGS: CHEST Tiny subcentimeter hypodensities in the lower poles of both thyroid gland. The lungs are normal. There is no demonstrated pleural abnormality. Normal heart and pericardium. No evidence of a coronary artery calcification. Normal mediastinum. Normal hilar regions. Normal unenhanced pulmonary arteries. Normal aorta arch and descending thoracic aorta. Normal osseous structures. There is no demonstrated abnormality of the visualized upper abdomen. ABDOMEN The visualized lung bases are unremarkable. The visualized portions of the heart are within normal limits. Normal liver. Normal gallbladder and extrahepatic biliary system. Normal spleen. Normal pancreas. Normal bilateral adrenal glands. Normal right kidney. Stable punctate nonobstructive calculus in the midpole calyx of the left kidney. Normal visualized stomach. Normal small intestine. Normal colon. The appendix is visualized and appears normal. Normal abdominal aorta. Normal inferior vena cava. Normal retroperitoneum. Normal abdominal wall. Disc space narrowing and subchondral sclerosis at the L2-L3 level. PELVIS Normal urinary bladder. The patient is status post hysterectomy. Normal visualized small intestine. Normal visualized colon. There is no pelvic fluid. There is no pelvic lymphadenopathy or mass lesion. Normal visualized pelvic arteries. CT/CT Chest, Abd, Pel w/Contrast IMPRESSION: Stable enhanced CT chest, abdomen T pelvis examination. Electronically Signed: Hal Fontanez MD at 10:46 EDT ,
== END | disposition home or self-care (01) ==
PROVIDERS: PCP Nurse Practitioner Primary Care; Referring Provider Internal Medicine Hematology & Oncology; Visit Provider Internal Medicine Hematology & Oncology
DX: C20 Malignant neoplasm of rectum (principal)
CPT/HCPCS: 71260; 74177; Q9967

== ENCOUNTER → 2024-08-07 | Outpatient (CLI) | payer BC, SELFPAY ==
--- NOTE | 2024-08-07 15:34 | CT_ITS ---
STUDY: CT CHEST, ABDOMEN T PELVIS WITH CONTRAST REASON FOR EXAM: Female, 49 years old. FOLLOW UP RECTAL CANCER- CHEMO AND RADIATION RADIATION DOSAGE (If Supplied By Facility): CTDIvol = ( 16.38 ) mGy, DLP = ( 1497.98 ) mGycm TECHNIQUE: Transaxial imaging was performed following intravenous administration of IV 100mL Isovue-300. Multiplanar coronal and sagittal images were reformatted. Individualized dose optimization techniques were used for this CT. COMPARISON: Comparison is made with prior study dated February 10, 2024. FINDINGS: CHEST Tiny subcentimeter hypodensity seen in the lower poles of the thyroid gland. Dense fibroglandular tissue seen in the right breast. Clinical correlation recommended. Ultrasound is recommended for further evaluation. The lungs are normal. There is no demonstrated pleural abnormality. Normal heart and pericardium. No evidence of coronary artery calcification. Normal mediastinum. Normal hilar regions. Normal unenhanced pulmonary arteries. Normal aorta arch and descending thoracic aorta. Normal osseous structures. ABDOMEN Normal liver. Normal gallbladder and extrahepatic biliary system. Normal spleen. Normal pancreas. Normal bilateral adrenal glands. Normal right kidney. Normal left kidney. Stable tiny calculus in the midpole calyx of the left kidney. Normal visualized stomach. Normal small intestine. There are scattered sigmoid diverticula. Colonic diverticula consistent with diverticulosis. The appendix is visualized and appears normal. Normal abdominal aorta. Normal inferior vena cava. Normal retroperitoneum. Normal abdominal wall. Disc space narrowing and subchondral sclerosis at the L2-L3 level. PELVIS Normal urinary bladder. The patient is status post hysterectomy. Normal visualized small intestine. Normal visualized colon. There is no pelvic fluid. There is no pelvic lymphadenopathy or mass lesion. Normal visualized pelvic arteries. CT/CT Chest, Abd, Pel w/Contrast IMPRESSION: Normal enhanced CT chest, abdomen T pelvis examination. Electronically Signed: Hal Fontanez MD at 10:54 EST ,
== END | disposition home or self-care (01) ==
PROVIDERS: PCP Nurse Practitioner Primary Care; Referring Provider Internal Medicine Hematology & Oncology; Visit Provider Internal Medicine Hematology & Oncology
DX: C20 Malignant neoplasm of rectum (principal)
CPT/HCPCS: 71260; 74177; Q9967; A4216

== ENCOUNTER → 2025-05-17 | Outpatient (CLI) | payer BC, SELFPAY ==
--- NOTE | 2025-05-17 07:08 | CT_ITS ---
PROCEDURE: CT CHEST, ABD, PEL W/CONTRAST 05/17/2025 REASON FOR EXAM: F/U ANAL CANCER Status post chemotherapy and radiation therapy. TECHNIQUE: Chest, abdomen and pelvis CT with intravenous contrast. Coronal and Sagittal reconstruction series were provided. One or more dose reduction techniques were used (e.g., Automated exposure control, adjustment of the mA and/or kV according to patient size, use of iterative reconstruction technique. PATIENT PREPARATION: Per protocol ORAL CONTRAST TYPE: None. Delete CONTRAST: Isovue-300 VOLUME: 100mL RADIATION DOSE SUMMARY: CTDlvol: 14.3 mGy DLP: 1192.14 mGycm COMPARISON: Prior study dated August 07, 2024. FINDINGS: CT CHEST: Hardware: None Tiny subcentimeter hypodensities in both lobes of the liver suggestive of colloid changes. Lymph nodes: Small benign-appearing axillary lymph nodes. Heart and Vasculature: The heart is nonenlarged. No coronary artery calcification is seen. Lungs and Airways: Lungs are clear. Pleura: No pleural effusion. Bones: Mild degenerative changes. CT ABDOMEN/PELVIS: Liver: Normal size. No mass. Gallbladder: The gallbladder is contracted. Spleen: Normal size. Pancreas: Normal size without evidence of mass surrounding inflammation or ductal dilation. Adrenals: Unremarkable Kidneys: Normal renal sizes. No hydronephrosis. Stable punctate calculus in the midpole region of the left kidney. Bladder: Unremarkable Reproductive Organs: Prior hysterectomy. Adnexal regions are unremarkable. Bowel: Colonic diverticulosis without diverticulitis. Appendix: The appendix is not identified. There is no inflammatory process identified in the right lower quadrant to suggest appendicitis. Lymph nodes: Unremarkable. Vasculature: The abdominal aorta and IVC are normal. Peritoneum / Retroperitoneum: Unremarkable Bones: Degenerative changes of the spine. CT/CT Chest, Abd, Pel w/Contrast IMPRESSION: Stable examination. No acute abnormality is seen. Reading Location: [facility]
--- OUTSIDE RECORDS SUMMARY | 2025-05-17 07:17 | XMS RPT_ITS | CCD ---
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 150-450 [facility] Comment on above: Performed By: #### L 100.0100, L500.4050 #### [facility] [address] [place], [address] RBC (Bld) [#/Vol] 4.19 10*6/uL Low 4.2-5.4 [facility] Comment on above: Performed By: #### L 100.0100, L500.4050 #### [facility] [address] [place], [address] RDW SD 46.5 fl High 35.1-43.9 [facility] Comment on above: Performed By: #### L 100.0100, L500.4050 #### [facility] [address] [place], [address] WBC (Bld) [#/Vol] 6.5 10*3/uL Normal 4.4-11.0 [facility] Comment on above: Performed By: #### L 100.0100, L500.4050 #### [facility] [address] [place], [address] Comprehensive Metabolic Prof ilon 11-20-2024 Albumin [Mass/Vol] 4.6 g/dL Normal 3.5-5.0 [facility] Comment on above: Performed By: #### L 100.0100, L500.4050 #### [facility] [address] [place], [address] Albumin/Globulin [Mass ratio] 1.5 {ratio} Normal 0.9-2.4 [facility] Comment on above: Performed By: #### L 100.0100, L500.4050 #### [facility] [address] [place], [address] ALK PHOS 87 U/L Normal 35-104 [facility] Comment on above: Performed By: #### L 100.0100, L500.4050 #### [facility] [address] [place], [address] ALT [Catalytic activity/Vol] 12 U/L Normal <=34 [facility] Comment on above: Performed By: #### L 100.0100, L500.4050 #### [facility] [address] [place], [address] Anion gap [Moles/Vol] 12 mmol/L Normal 5-15 [facility] Comment on above: Performed By: #### L 100.0100, L500.4050 #### [facility] [address] [place], [address] AST [Catalytic activity/Vol] 20 U/L Normal <=31 [facility] Comment on above: Performed By: #### L 100.0100, L500.4050 #### [facility] [address] [place], [address] Bilirubin [Mass/Vol] 0.48 mg/dL Normal 0.00-1.30 [facility] Comment on above: Performed By: #### L 100.0100, L500.4050 #### [facility] [address] [place], [address] BUN/CRE 22.5 RATIO High 10-20 [facility] Comment on above: Performed By: #### L 100.0100, L500.4050 #### [facility] [address] [place], [address] Calcium [Mass/Vol] 10.3 mg/dL Normal 7.6-11.0 [facility] Comment on above: Performed By: #### L 100.0100, L500.4050 #### [facility] [address] [place], [address] Chloride [Moles/Vol] 104 mmol/L Normal 96-108 [facility] Comment on above: Performed By: #### L 100.0100, L500.4050 #### [facility] [address] [place], [address] CO2 [Moles/Vol] 21.6 mmol/L Low 22.0-29.0 [facility] Comment on above: Performed By: #### L 100.0100, L500.4050 #### [facility] [address] [place], [address] Creatinine [Mass/Vol] 0.7 mg/dL Normal 0.6-1.0 [facility] Comment on above: Performed By: #### L 100.0100, L500.4050 #### [facility] [address] [place], [address] ECRCL 98.07 ml/min Normal [facility] Comment on above: Performed By: #### L 100.0100, L500.4050 #### [facility] [address] [place], [address] GFR/1.73 sq M.predicted among non-blacks MDRD (S/P/Bld) [Vol rate/Area] 108 mL/min/{1.73_m2} Normal >60 [facility] Comment on above: Result Comment: mL/m in/1.73m2 CKD-EPI Creatinine Equation (2020) Performed By: #### L 100.0100, L500.4050 #### [facility] [address] [place], [address] Globulin (S) [Mass/Vol] 3.1 g/dL Normal 2.2-4.2 [facility] Comment on above: Performed By: #### L 100.0100, L500.4050 #### [facility] [address] [place], [address] Glucose [Mass/Vol] 82 mg/dL Normal 70-99 [facility] Comment on above: Performed By: #### L 100.0100, L500.4050 #### [facility] [address] [place], [address] Potassium [Moles/Vol] 4.0 mmol/L Normal 3.3-5.1 [facility] Comment on above: Performed By: #### L 100.0100, L500.4050 #### [facility] [address] [place], [address] Sodium [Moles/Vol] 137 mmol/L Normal 133-145 [facility] Comment on above: Performed By: #### L 100.0100, L500.4050 #### [facility] [address] [place], [address] T PROT 7.7 g/dL Normal 5.9-8.4 [facility] Comment on above: Performed By: #### L 100.0100, L500.4050 #### [facility] [address] [place], [address] Urea nitrogen [Mass/Vol] 15 mg/dL Normal 4-19 [facility] Comment on above: Performed By: #### L 100.0100, L500.4050 #### [facility] [address] [place], [address] Oncology Visit Reporton 10-28 Oncology Visit Report [facility] [address] [place] [address] OFFICE VISIT Date of Service: 11/20/24 1511 MR#: [id number] Acct: [id number] Name: FABBY LION Rep #: [id number] : 1975 From: Stone Acosta MD Age/Sex: 49/F Location: [facility] [place] Status: Signed HPI Subjective Date of Service 11/20/24 Chief Complaint Anorectal cancer follow-up History of Present Illness 49-year-old female with a family history notable for colon cancer (father) who noted rectal bleeding around 2020 that progressively increased, rectal discomfort and constipation. Her past medical history is notable for being status post hysterectomy in 2009 for benign disease. To her knowledge she is HIV negative during pregnancies and in 2009 at the time of hysterectomy. 08/31/2021: CT abdomen/pelvis with contrast demonstrated a 3.3 x 3.5 x 4.7 cm enhancing lesion in the posterior right hepatic lobe causing mild right-sided mass-effect on the IVC, this lesion has been stable since 2017 is most likely benign representing hepatic adenoma or FNH, MRI liver protocol is recommended for further characterization. There is a mildly enhancing ill-defined eccentric soft tissue thickening and nodularity measuring 1.3 cm along the right rectal wall on images 89???92. No abdominal or pelvic lymphadenopathy. 09/25/2021: Patient underwent colonoscopy by Dr. Sanders: demonstrated a rectal mass, this is described as a growing sessile mass encompassing about half of the lumen of the colon. This is also palpable on rectal examination. 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 No other polyps or lesions were appreciated. October 21, 2021 PET/CT initial staging: IMPRESSION: 1. ABNORMAL EXAMINATION INDICATIVE OF MALIGNANT VIABLE NEOPLASM. 2. Increased glucose concentration defined in the lower pelvis, rectum-rectal vault fulfills quantitative criteria for viable neoplasm. 3. No other quantitatively significant hypermetabolic abnormalities are noted. There is no definitive scintigraphic evidence of distant metastatic disease. February 08, 2022 CT chest abdomen and pelvis: End of treatment restaging: IMPRESSION: 1. There is hepatomegaly with diffuse hepatic enlargement. 2. Stool throughout the colon. This can suggest constipation. 3. There focal wall thickening of the anus and rectum suggesting underlying mass. 4. Abnormal sclerotic focus along the superior endplate on the left side of L3. This is concerning for metastatic disease. August 09, 2022 CT chest and abdomen: IMPRESSION: Stable examination. August 12, 2022 pelvic MRI: IMPRESSION: No evidence of residual or recurrent rectal neoplasm. February 15, 2022 CT chest abdomen and pelvis: IMPRESSION: Persistent low-lying appearance of the cecum probable centrally located solid stool, however, given clinical history, a less likely focal mass should be excluded. Could consider short-term interval follow-up study which could include short-term follow-up CT with oral contrast or upper GI small bowel follow-through potentially colonoscopy if appropriate. No visualized focal consolidation and pleural effusion or suspicious masses within the chest. No visualized hepatic or adrenal metastasis. Small stable 4 mm hepatic cyst. Stable Punctate stone left kidney no hydronephrosis. Mild Degenerative change of the thoracolumbar spine. August 22, 2023 CT chest abdomen and pelvis: IMPRESSION: 1. No evidence of metastatic disease. 2. Stable 3 cm liver lesion suggestive of hemangioma. 3. Punctate left renal stone. February 10, 2024 CT chest abdomen and pelvis: IMPRESSION: Stable enhanced CT chest, abdomen T pelvis examination. August 07, 2024 chest abdomen and pelvis CT: IMPRESSION: Normal enhanced CT chest, abdomen T pelvis examination. Treatment summary and response: Concomitant chemoradiation with mitomycin C and continuous infusional 5-FU : 11/02/2021- 12/11/2021: received chemoradiation consisting of 5400 cGy delivered to the primary disease, 5040 cGy delivered to the potentially involved pelvic lymph nodes and 4500 cGy delivered to the pelvic and inguinal lymph nodes all in 30 fractions. [facility] Medical History UTI (urinary tract infection) Chills Hemoptysis Oral candidiasis Diarrhea due to drug CINV (chemotherapy-induced nausea and vomiting) Mucositis (ulcerative) due to antineoplastic therapy History of echocardiogram Depression Alcohol use Marijuana use Easy bruising Excessive bleeding Restless legs History of IBS Smoker Chronic bronchitis History of stress test Leg cramps Encounter for education Liver lesion Hypertension GERD (gastroesophageal reflux disease) Surgical History (Updated 11/20/24 @ 15:12 by Shannen Jo (more content not included)... Normal [facility] CTPCRon 10-17-2024 C. trachomatis Interp Normal See CT Interp N [facility] Comment on above: Result Comment: C. t rachomatis DNA not detected. Specimen is presumptive negative for C. trachomatis. A negative result does not preclude C. trachomatis infection because results depend on adequate specimen collection, absence of inhibitors, and sufficient DNA to be detected. See CT Interp N Performed By: #### N GPCR1, CTPCR #### [place] [address] C.trachomatis PCR Negative Normal Negative [facility] Comment on above: Result Comment: Mole cular (PCR) assay performed on the [employer]00 system. Performed By: #### N GPCR1, CTPCR #### [place] [address] Chlam Source Urine Normal [facility] Comment on above: Performed By: #### N GPCR1, CTPCR #### [place] [address] [id number] 10-17-2024 GC PCR Source Urine Normal [facility] Comment on above: Performed By: #### N GPCR1, CTPCR #### [place] [address] N. gonorrhoeae (PCR) Negative Normal Negative [facility] Comment on above: Result Comment: Mole cular (PCR) assay performed on the [employer] 4800 System. Performed By: #### N GPCR1, CTPCR #### [place] [address] N. gonorrhoeae Interp Normal See NG Interp N [facility] Comment on above: Result Comment: N. g onorrhoeae DNA not detected. Specimen is presumptive negative for N. gonorrhoeae. A negative result does not preclude Neisseria gonorrhoeae infection because results depend on adequate specimen collection, absence of inhibitors, and sufficient DNA to be detected. See NG Interp N Performed By: #### N GPCR1, CTPCR #### [place] [address] .Auto Diffon 10-16-2024 Basophil, Absolute 0.0 10 3/mcL Normal 0.0-0.2 [facility] Comment on above: Performed By: #### H CV1 #### [place] [address] #### CBC, ANEU, CMP, LIPID, ADIFF, GFR #### [address] [address] Basophils/100 WBC (Bld) 1.0 % Normal 0.0-2.5 [facility] Comment on above: Performed By: #### H CV1 #### [place] [address] #### CBC, ANEU, CMP, LIPID, ADIFF, GFR #### [address] [address] Eosinophil, Absolute 0.0 10 3/mcL Normal 0.0-0.7 [facility] Comment on above: Performed By: #### H CV1 #### [place] [address] #### CBC, ANEU, CMP, LIPID, ADIFF, GFR #### [address] [address] Eosinophils/100 WBC (Bld) 1.1 % Normal 0.0-7.0 [facility] Comment on above: Performed By: #### H CV1 #### [place] [address] #### CBC, ANEU, CMP, LIPID, ADIFF, GFR #### [address] [address] Lymphocyte, Absolute 1.9 10 3/mcL Normal 0.9-4.3 [facility] Comment on above: Performed By: #### H CV1 #### [place] [address] #### CBC, ANEU, CMP, LIPID, ADIFF, GFR #### [address] [address] Lymphocytes/100 WBC (Bld) 45.2 % High 20.0-40.0 [facility] Comment on above: Performed By: #### H CV1 #### [address] [address] #### CBC, ANEU, CMP, LIPID, ADIFF, GFR #### [address] [address] Monocyte, Absolute 0.2 10 3/mcL Normal 0.1-1.4 [facility] Comment on above: Performed By: #### H CV1 #### [place] [address] #### CBC, ANEU, CMP, LIPID, ADIFF, GFR #### [address] [address] Monocytes/100 WBC (Bld) 4.8 % Normal 2.0-13.0 [facility] Comment on above: Performed By: #### H CV1 #### [place] [address] #### CBC, ANEU, CMP, LIPID, ADIFF, GFR #### [address] [address] Neutrophils/100 WBC (Bld) 47.9 % Low 50.0-75.0 [facility] Comment on above: Performed By: #### H CV1 #### [place] [address] #### CBC, ANEU, CMP, LIPID, ADIFF, GFR #### [address] [address] .GFRon 10-16-2024 GFR 113 ml/min/1.73sqm Normal [facility] Comment on above: Result Comment: GFR Population mean for , Non- Americans Ages 20-29 = 116 mL/min/1.73 sq.m. Ages 30-39 = 107 mL/min/1.73 sq.m. Ages 40-49 = 99 mL/min/1.73 sq.m. Ages 50-59 = 93 mL/min/1.73 sq.m. Ages 60-69 = 85 mL/min/1.73 sq.m. Ages 70+ = 75 mL/min/1.73 sq.m. Chronic Kidney Disease: Less than 60 mL/min/1.73 square meters End Stage Renal Disease: Less than 15 mL/min/1.73 square meters Performed By: #### H CV1 #### [address] [address] #### CBC, ANEU, CMP, LIPID, ADIFF, GFR #### [address] [address] GFR Non- 94 ml/min/1.73sqm Normal [facility] Comment on above: Result Comment: GFR Population mean for , Non- Americans Ages 20-29 = 116 mL/min/1.73 sq.m. Ages 30-39 = 107 mL/min/1.73 sq.m. Ages 40-49 = 99 mL/min/1.73 sq.m. Ages 50-59 = 93 mL/min/1.73 sq.m. Ages 60-69 = 85 mL/min/1.73 sq.m. Ages 70+ = 75 mL/min/1.73 sq.m. Chronic Kidney Disease: Less than 60 mL/min/1.73 square meters End Stage Renal Disease: Less than 15 mL/min/1.73 square meters Performed By: #### H CV1 #### [place] [address] #### CBC, ANEU, CMP, LIPID, ADIFF, GFR #### [address] [address] .NEUABSon 10-16-2024 Neutrophil, Absolute 2.0 10 3/mcL Low 2.3-8.1 [facility] Comment on above: Performed By: #### H CV1 #### [address] [address] #### CBC, ANEU, CMP, LIPID, ADIFF, GFR #### [address] [address] CBCon 10-16-2024 Erythrocyte distribution width (RBC) [Ratio] 14.5 % Normal 11.5-15.5 [facility] Comment on above: Performed By: #### H CV1 #### [address] [address] #### CBC, ANEU, CMP, LIPID, ADIFF, GFR #### [place] [address] Hematocrit (Bld) [Volume fraction] 39.7 % Normal 34.0-46.0 [facility] Comment on above: Performed By: #### H CV1 #### [place] [address] #### CBC, ANEU, CMP, LIPID, ADIFF, GFR #### [place] [address] Hgb 13.4 G/dL Normal 12.0-16.0 [facility] Comment on above: Performed By: #### H CV1 #### [place] [address] #### CBC, ANEU, CMP, LIPID, ADIFF, GFR #### [place] [address] MCH (RBC) [Entitic mass] 30.8 pg Normal 27.0-33.0 [facility] Comment on above: Performed By: #### H CV1 #### [place] [address] #### CBC, ANEU, CMP, LIPID, ADIFF, GFR #### [place] [address] MCHC 33.7 G/dL Normal 32.0-36.0 [facility] Comment on above: Performed By: #### H CV1 #### [place] [address] #### CBC, ANEU, CMP, LIPID, ADIFF, GFR #### [place] [address] MCV (RBC) [Entitic vol] 91.1 fL Normal 80.0-99.0 [facility] Comment on above: Performed By: #### H CV1 #### [place] [address] #### CBC, ANEU, CMP, LIPID, ADIFF, GFR #### [address] [address] Platelet 266 10 3/mcL Normal 150-450 [facility] Comment on above: Performed By: #### H CV1 #### [place] [address] #### CBC, ANEU, CMP, LIPID, ADIFF, GFR #### [address] [address] Platelet mean volume (Bld) [Entitic vol] 6.7 fL Normal 6.6-10.5 [facility] Comment on above: Performed By: #### H CV1 #### [place] [address] #### CBC, ANEU, CMP, LIPID, ADIFF, GFR #### [address] [address] RBC 4.36 10 6/mcL Normal 4.10-5.30 [facility] Comment on above: Performed By: #### H CV1 #### [place] [address] #### CBC, ANEU, CMP, LIPID, ADIFF, GFR #### [address] [address] WBC 4.1 10 3/mcL Low 4.5-10.8 [facility] Comment on above: Performed By: #### H CV1 #### [place] [address] #### CBC, ANEU, CMP, LIPID, ADIFF, GFR #### [address] [address] CMPon 10-16-2024 Albumin Level 3.8 G/dL Normal 3.5-5.0 [facility] Comment on above: Performed By: #### H CV1 #### [place] [address] #### CBC, ANEU, CMP, LIPID, ADIFF, GFR #### [address] [address] Albumin/Globulin [Mass ratio] 1.0 {ratio} Low 1.1-2.5 [facility] Comment on above: Performed By: #### H CV1 #### [place] [address] #### CBC, ANEU, CMP, LIPID, ADIFF, GFR #### [address] [address] ALP [Catalytic activity/Vol] 81 U/L Normal 40-135 [facility] Comment on above: Performed By: #### H CV1 #### [place] [address] #### CBC, ANEU, CMP, LIPID, ADIFF, GFR #### [place] [address] ALT [Catalytic activity/Vol] 17 U/L Normal 14-59 [facility] Comment on above: Performed By: #### H CV1 #### [place] [address] #### CBC, ANEU, CMP, LIPID, ADIFF, GFR #### [address] [address] AST [Catalytic activity/Vol] 13 U/L Normal 10-40 [facility] Comment on above: Performed By: #### H CV1 #### [place] [address] #### CBC, ANEU, CMP, LIPID, ADIFF, GFR #### [address] [address] Bili Total 0.7 mg/dL Normal 0.2-1.0 [facility] Comment on above: Result Comment: Use of this assay is not recommended for patients undergoing treatment with eltrombopag due to the potential for falsely elevated results. Performed By: #### H CV1 #### [place] [address] #### CBC, ANEU, CMP, LIPID, ADIFF, GFR #### [address] [address] BUN/Creatinine Ratio 15 ratio Normal 7-27 [facility] Comment on above: Performed By: #### H CV1 #### [place] [address] #### CBC, ANEU, CMP, LIPID, ADIFF, GFR #### [address] [address] Calcium [Mass/Vol] 9.7 mg/dL Normal 8.4-10.2 [facility] Comment on above: Performed By: #### H CV1 #### [place] [address] #### CBC, ANEU, CMP, LIPID, ADIFF, GFR #### [address] [address] Chloride [Moles/Vol] 106 mmol/L Normal 98-107 [facility] Comment on above: Performed By: #### H CV1 #### [place] [address] #### CBC, ANEU, CMP, LIPID, ADIFF, GFR #### [address] [address] CO2 [Moles/Vol] 29 mmol/L Normal 22-29 [facility] Comment on above: Performed By: #### H CV1 #### [place] [address] #### CBC, ANEU, CMP, LIPID, ADIFF, GFR #### [address] [address] Creatinine [Mass/Vol] 0.67 mg/dL Normal 0.55-1.02 [facility] Comment on above: Result Comment: Test ing performed on Siemens Dimension EXL analyzer using a modified kinetic Deandre technique. Performed By: #### H CV1 #### [place] [address] #### CBC, ANEU, CMP, LIPID, ADIFF, GFR #### [address] [address] Electrolyte Balance 6.0 mEq/L Normal 4.0-15.0 [facility] Comment on above: Performed By: #### H CV1 #### [place] [address] #### CBC, ANEU, CMP, LIPID, ADIFF, GFR #### [address] [address] Globulin 3.9 G/dL Normal [facility] Comment on above: Performed By: #### H CV1 #### [place] [address] #### CBC, ANEU, CMP, LIPID, ADIFF, GFR #### [address] [address] Glucose [Mass/Vol] 90 mg/dL Normal 70-105 [facility] Comment on above: Performed By: #### H CV1 #### [place] [address] #### CBC, ANEU, CMP, LIPID, ADIFF, GFR #### [address] [address] Potassium [Moles/Vol] 4.1 mmol/L Normal 3.5-5.1 [facility] Comment on above: Performed By: #### H CV1 #### [place] [address] #### CBC, ANEU, CMP, LIPID, ADIFF, GFR #### [address] [address] Sodium [Moles/Vol] 141 mmol/L Normal 136-145 [facility] Comment on above: Performed By: #### H CV1 #### [place] [address] #### CBC, ANEU, CMP, LIPID, ADIFF, GFR #### [address] [address] Total Protein 7.7 G/dL Normal 6.4-8.2 [facility] Comment on above: Performed By: #### H CV1 #### [place] [address] #### CBC, ANEU, CMP, LIPID, ADIFF, GFR #### [place] [id number] Urea nitrogen [Mass/Vol] 10 mg/dL Normal 7-18 [facility] Comment on above: Performed By: #### H CV1 #### [place] [address] #### CBC, ANEU, CMP, LIPID, ADIFF, GFR #### [place] [id number] HCVon 10-16-2024 Hep C Ab Non-Reactive Normal Non-Reactive [facility] Comment on above: Performed By: #### H CV1 #### [place] [address] #### CBC, ANEU, CMP, LIPID, ADIFF, GFR #### [place] [address] Hep C Ab Int Normal [facility] Comment on above: Result Comment: Nonr eactive: Samples with a value < 0.80 are considered nonreactive (negative) for antibodies to HCV. A negative test result does not exclude the possibility of exposure to or infection with HCV. HCV antibodies may be undetectable in some stages of the infection and in some clinical conditions. See Interp Performed By: #### H CV1 #### [place] [address] #### CBC, ANEU, CMP, LIPID, ADIFF, GFR #### [place] [id number] LABORATORYOrdered By: SYSTEM SYSTEM on 10-16-2024 Albumin BCP dye [Mass/Vol] 3.8 G/dL Normal 3.5 - 5.0 G/dL AO ADM SS Albumin/Globulin [Mass ratio] 1.0 {ratio} Low 1.1 - 2.5 ratio AO ADM SS ALP [Catalytic activity/Vol] 81 U/L Normal 40 - 135 U/L AO ADM SS ALT With P-5'-P [Catalytic activity/Vol] 17 U/L Normal 14 - 59 U/L AO ADM SS AST With P-5'-P [Catalytic activity/Vol] 13 U/L Normal 10 - 40 U/L AO ADM SS Basophils (Bld) [#/Vol] 0.0 103/mcL Normal 0.0 - 0.2 10^3/mcL AO Workflow SS Basophils/100 WBC (Bld) 1.0 % Normal 0.0 - 2.5 % AO Workflow SS Bilirubin [Mass/Vol] 0.7 mg/dL Normal 0.2 - 1 .0 mg/dL AO ADM SS Comment on above: Interpretive Data: U se of this assay is not recommended for patients undergoing treatment with eltrombopag due to the potential for falsely elevated results. Calcium [Mass/Vol] 9.7 mg/dL Normal 8.4 - 10. 2 mg/dL AO ADM SS Chloride [Moles/Vol] 106 mmol/L Normal 98 - 10 7 mmol/L AO ADM SS CO2 [Moles/Vol] 29 mmol/L Normal 22 - 29 mmol/L AO ADM SS Creatinine [Mass/Vol] 0.67 mg/dL Normal 0.55 - 1.02 mg/dL AO ADM SS Comment on above: Interpretive Data: T esting performed on Siemens Dimension EXL analyzer using a modified kinetic Deandre technique. Electrolyte Balance 6.0 mEq/L Normal 4.0 - 15 .0 mEq/L AO ADM SS Eosinophil, Absolute 0.0 103/mcL Normal 0.0 - 0 .7 10^3/mcL AO Workflow SS Eosinophils/100 WBC (Bld) 1.1 % Normal 0.0 - 7.0 % AO Workflow SS Erythrocyte distribution width (RBC) [Ratio] 14.5 % Normal 11.5 - 15.5 % AO Workflow SS GFR/1.73 sq M.predicted among blacks MDRD (S/P/Bld) [Vol rate/Area] 113 ml/min/1.73sqm Invalid Interpretation Code AO Chemistry S Comment on above: Interpretive Data: GFR Population mean for , Non- Americans Ages 20-29 = 116 mL/min/1.73 sq.m. Ages 30-39 = 107 mL/min/1.73 sq.m. Ages 40-49 = 99 mL/min/1.73 sq.m. Ages 50-59 = 93 mL/min/1.73 sq.m. Ages 60-69 = 85 mL/min/1.73 sq.m. Ages 70+ = 75 mL/min/1.73 sq.m. Chronic Kidney Disease: Less than 60 mL/min/1.73 square meters End Stage Renal Disease: Less than 15 mL/min/1.73 square meters GFR/1.73 sq M.predicted among non-blacks MDRD (S/P/Bld) [Vol rate/Area] 94 ml/min/1.73sqm Invalid Interpretation Code AO Chemistry S Comment on above: Interpretive Data: GFR Population mean for , Non- Americans Ages 20-29 = 116 mL/min/1.73 sq.m. Ages 30-39 = 107 mL/min/1.73 sq.m. Ages 40-49 = 99 mL/min/1.73 sq.m. Ages 50-59 = 93 mL/min/1.73 sq.m. Ages 60-69 = 85 mL/min/1.73 sq.m. Ages 70+ = 75 mL/min/1.73 sq.m. Chronic Kidney Disease: Less than 60 mL/min/1.73 square meters End Stage Renal Disease: Less than 15 mL/min/1.73 square meters Globulin 3.9 G/dL Invalid Interpretation Code AO ADM SS Glucose [Mass/Vol] 90 mg/dL Normal 70 - 105 mg/dL AO ADM SS Hematocrit (Bld) [Volume fraction] 39.7 % Normal 34.0 - 46.0 % AO Workflow SS Hemoglobin (Bld) [Mass/Vol] 13.4 G/dL Normal 12.0 - 16.0 G/dL AO Workflow SS Lymphocytes (Bld) [#/Vol] 1.9 103/mcL Normal 0.9 - 4.3 10^3/mcL AO Workflow SS Lymphocytes/100 WBC (Bld) 45.2 % High 20.0 - 40.0 % AO Workflow SS MCH (RBC) [Entitic mass] 30.8 pg Normal 27.0 - 33.0 pg AO Workflow SS MCHC 33.7 G/dL Normal 32.0 - 36.0 G/dL AO Workflow SS MCV (RBC) [Entitic vol] 91.1 fL Normal 80.0 - 99.0 fL AO Workflow SS Monocytes (Bld) [#/Vol] 0.2 103/mcL Normal 0.1 - 1.4 10^3/mcL AO Workflow SS Monocytes/100 WBC (Bld) 4.8 % Normal 2.0 - 13.0 % AO Workflow SS Neutrophils (Bld) [#/Vol] 2.0 103/mcL Low 2.3 - 8.1 10^3/mcL AO Workflow SS Neutrophils/100 WBC (Bld) 47.9 % Low 50.0 - 75.0 % AO Workflow SS Platelet mean volume (Bld) [Entitic vol] 6.7 fL Normal 6.6 - 10.5 fL AO Workflow SS Platelets (Bld) [#/Vol] 266 103/mcL Normal 150 - 450 10^3/mcL AO Workflow SS Potassium [Moles/Vol] 4.1 mmol/L Normal 3.5 - 5.1 mmol/L AO ADM SS Protein [Mass/Vol] 7.7 G/dL Normal 6.4 - 8.2 G/dL AO ADM SS RBC (Bld) [#/Vol] 4.36 106/mcL Normal 4.10 - 5.3 0 10^6/mcL AO Workflow SS Sodium [Moles/Vol] 141 mmol/L Normal 136 - 145 mmol/L AO ADM SS Urea nitrogen [Mass/Vol] 10 mg/dL Normal 7 - 18 mg/dL AO ADM SS Urea nitrogen/Creatinine [Mass ratio] 15 ratio Normal 7 - 27 ratio AO ADM SS WBC (Bld) [#/Vol] 4.1 103/mcL Low 4.5 - 10.8 10^3/mcL AO Workflow SS LABORATORYOrdered By: Marga Cobb on 10-16-2024 Cholesterol [Mass/Vol] 252 mg/dL High 0 - 200 mg/dL AO ADM SS Comment on above: Interpretive Data: C holesterol Reference Interval: Less than 200 Desirable 200-239 Borderline high risk 240 and above High risk Cholesterol in HDL [Mass/Vol] 94 mg/dL High 40 - 60 mg/dL AO ADM SS Cholesterol in LDL [Mass/Vol] 150 mg/dL High 0 - 130 mg/dL AO ADM SS Triglyceride [Mass/Vol] 40 mg/dL Normal 0 - 150 mg/dL AO ADM SS Comment on above: Interpretive Data: T riglyceride Reference Interval: Less than 150 Normal 150-199 Borderline high risk 200-499 High risk 500 or higher Very high risk LABORATORYOrdered By: Nataly Shannon on 10-16-2024 HCV Ab IA Ql Non-Reactive (10/16/24 7:37 AM) Normal Non-Reactive AH ADM SS HCV Ab IA Ql Nonreactive: Samples with a value < 0.80 are considered nonreactive (negative) for antibodies to HCV.A negative test result does not exclude the possibility of exposure to or infection with HCV. HCV antibodies may be undetectable in some stages of the infection and in some clinical conditions. Invalid Interpretation Code Chemistry S LIPIDon 10-16-2024 Cholesterol [Mass/Vol] 252 mg/dL High 0-200 [facility] Comment on above: Result Comment: Chol esterol Reference Interval: Less than 200 Desirable 200-239 Borderline high risk 240 and above High risk Performed By: #### H CV1 #### [place] [address] #### CBC, ANEU, CMP, LIPID, ADIFF, GFR #### [address] [address] Cholesterol in HDL [Mass/Vol] 94 mg/dL High 40-60 [facility] Comment on above: Performed By: #### H CV1 #### [place] [address] #### CBC, ANEU, CMP, LIPID, ADIFF, GFR #### [address] [address] Cholesterol in LDL [Mass/Vol] 150 mg/dL High 0-130 [facility] Comment on above: Performed By: #### H CV1 #### [place] [address] #### CBC, ANEU, CMP, LIPID, ADIFF, GFR #### [address] [address] Triglyceride [Mass/Vol] 40 mg/dL Normal 0-150 [facility] Comment on above: Result Comment: Trig lyceride Reference Interval: Less than 150 Normal 150-199 Borderline high risk 200-499 High risk 500 or higher Very high risk Performed By: #### H CV1 #### [place] [address] #### CBC, ANEU, CMP, LIPID, ADIFF, GFR #### [address] [address] Radiation Oncology Visiton 1 10-14-2023 Radiation Oncology Visit [address] [place] [address] OFFICE VISIT Date of Service: 08/14/24 1533 MR#: [id number] Acct: [id number] Name: FABBY LION Rep #: [id number] : 1975 From: Kia Villa DO Age/Sex: 49/F Location: [facility] [place] Status: Signed Intake Vital Signs 02/14/24 15:37 05/17/24 16:04 08/14/24 15:35 Height 5 ft 8 in 5 ft 8 in 5 ft 8 in Weight: 169 lb 3 oz BMI 25.7 BP 132/89 H Blood Pressure Location Rt brachial Position Sitting Respiration 16 Pulse 98 Pulse Source Monitor Temp 97.2 F L Temperature Source Temporal Artery Pulse Oximetry (%) 99 Oxygen Delivery Method room air Intake Visit Reasons: 6 MONTH F/U RECTAL Is patient in pain?: No Allergies lisinopril Allergy (Verified 08/14/24 15:35) ANTIHYPERTENSIVE peanut Allergy (Verified 08/14/24 15:35) Angioedema shellfish derived Allergy (Verified 08/14/24 15:35) Angioedema Medications ???Medication ???Instructions ???Recorded ???Confirmed ???Type multivitamin 1 tab PO DAILY 10/13/21 08/14/24 History PFSH PFSH Medical History UTI (urinary tract infection) Chills Hemoptysis Oral candidiasis Diarrhea due to drug CINV (chemotherapy-induced nausea and vomiting) Mucositis (ulcerative) due to antineoplastic therapy History of echocardiogram Depression Alcohol use Marijuana use Easy bruising Excessive bleeding Restless legs History of IBS Smoker Chronic bronchitis History of stress test Leg cramps Encounter for education Liver lesion Hypertension GERD (gastroesophageal reflux disease) Home Medications ???Medication ???Instructions ???Recorded ???Last Taken ???Type multivitamin 1 tab PO DAILY 10/13/21 Unknown History Allergy/AdvReac Type Severity Reaction Status Date / Time lisinopril Allergy ANTIHYPERTE Verified 08/14/24 15:35 NSIVE peanut Allergy Angioedema Verified 08/14/24 15:35 shellfish derived Allergy Angioedema Verified 08/14/24 15:35 Family History Grandfather Colon cancer Mother Diabetes Hypertension Grandmother Kidney disease Father Cancer unsure of exact diagnosis (maybe lung/colon) Surgical History History of esophagogastroduodenoscopy (EGD) History of colonoscopy History of hysterectomy Social History Smoking Status: Current every day smoker tobacco type: cigarettes Tobacco: How many years used: 20 alcohol intake: former substance use type: marijuana Diagnosis: Fabby Lion is a 49 year- old female 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 From 11/02/2021- 12/11/2021 she received definitive chemoradiation therapy. History of Present Illness: 2009: hysterectomy performed, pathology showed fibroids. 08/31/2021: CT abdomen/pelvis with contrast was performed. This demonstrated a 3.3 x 3.5 x 4.7 cm enhancing lesion in the posterior right hepatic lobe causing mild right-sided mass-effect on the IVC, this lesion has been stable since 2017 is most likely benign representing hepatic adenoma or FNH, MRI liver protocol is recommended for further characterization. There is a mildly enhancing ill-defined eccentric soft tissue thickening and nodularity measuring 1.3 cm along the right rectal wall on images 89???92. No abdominal or pelvic lymphadenopathy. 09/25/2021: Patient underwent colonoscopy. This demonstrated a rectal mass, this is described as a growing sessile mass encompassing about half of the lumen of the colon. This is also palpable on rectal examination. 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 No other polyps or lesions were appreciated. 10/14/2021: CT chest/abdomen/pelvis with contrast was performed. Distal rectal lesion consistent with known rectal carcinoma. No adenopathy. No evidence for distant metastatic disease. 10/19/2021: Abdominal MRI was performed. This demonstrated a 3 cm enhancing mass in the medial posterior segment of the right lobe of the liver adjacent to the inferior vena cava, differential includes hepatic adenoma, focal nodular hyperplasia, hepatocellular carcinoma, or solitary metastasis. 10/19/2021: Pelvic MRI was performed. This demonstrated a 2.5 cm mass located within the proximal rectum extending to the superior portion of the anal sphincter without discrete involvement of the sphincter. Lesion appears to involve the (more content not included)... Normal [facility] CT Chest, Abd, Pel w/Contras ton 08-07-2024 CT Chest, Abd, Pel w/Contrast [facility] Imaging Services [address] [place], [place] [address] CT Chest, Abd, Pel w/Contrast MR#: [id number] Acct: [id number] Name: FABBY LION Rep #: [id number] : 1975 F 49 From: Hal cottrell MD PCP: ZECHARIAH Davis Status: REG CLI Study: CT Chest, Abd, Pel w/Contrast Date of Exam: Exam# [id number] Ordering Dr: Stone Acosta MD [id number] STUDY: CT CHEST, ABDOMEN T PELVIS WITH CONTRAST REASON FOR EXAM: Female, 49 years old. FOLLOW UP RECTAL CANCER- CHEMO AND RADIATION RADIATION DOSAGE (If Supplied By Facility): CTDIvol = ( 16.38 ) mGy, DLP = ( 1497.98 ) mGycm TECHNIQUE: Transaxial imaging was performed following intravenous administration of IV 100mL Isovue-300. Multiplanar coronal and sagittal images were reformatted. Individualized dose optimization techniques were used for this CT. COMPARISON: Comparison is made with prior study dated February 10, 2024. FINDINGS: CHEST Tiny subcentimeter hypodensity seen in the lower poles of the thyroid gland. Dense fibroglandular tissue seen in the right breast. Clinical correlation recommended. Ultrasound is recommended for further evaluation. The lungs are normal. There is no demonstrated pleural abnormality. Normal heart and pericardium. No evidence of coronary artery calcification. Normal mediastinum. Normal hilar regions. Normal unenhanced pulmonary arteries. Normal aorta arch and descending thoracic aorta. Normal osseous structures. ABDOMEN Normal liver. Normal gallbladder and extrahepatic biliary system. Normal spleen. Normal pancreas. Normal bilateral adrenal glands. Normal right kidney. Normal left kidney. Stable tiny calculus in the midpole calyx of the left kidney. Normal visualized stomach. Normal small intestine. There are scattered sigmoid diverticula. Colonic diverticula consistent with diverticulosis. The appendix is visualized and appears normal. Normal abdominal aorta. Normal inferior vena cava. Normal retroperitoneum. Normal abdominal wall. Disc space narrowing and subchondral sclerosis at the L2-L3 level. PELVIS Normal urinary bladder. The patient is status post hysterectomy. Normal visualized small intestine. Normal visualized colon. There is no pelvic fluid. There is no pelvic lymphadenopathy or mass lesion. Normal visualized pelvic arteries. CT/CT Chest, Abd, Pel w/Contrast IMPRESSION: Normal enhanced CT chest, abdomen T pelvis examination. Electronically Signed: Hal Fontanez MD at 10:54 EST Reading Location ID and State: [address] [place] [address] , Service support , CC: ZECHARIAH Lala; Dr. Stone Acosta MD Technology Risk Intern: Signed Normal [facility] CBC W/Diff, Automatedon 04-27 Absolute Lymph 2.40 X10 3/uL Normal 0.83-4.51 [facility] Comment on above: Performed By: #### L 100.0100, L500.4050 #### [facility] [address] [place], [place], [address] Absolute Neut 2.8 X10 3/uL Normal 2.0-7.7 [facility] Comment on above: Performed By: #### L 100.0100, L500.4050 #### [facility] [address] [place], [address] Basophils/100 WBC (Bld) 0.7 % Normal 0-1 [facility] Comment on above: Performed By: #### L 100.0100, L500.4050 #### [facility] [address] [place], [address] Eosinophils/100 WBC (Bld) 0.7 % Normal 0-5 [facility] Comment on above: Performed By: #### L 100.0100, L500.4050 #### [facility] [address] [place], [address] Erythrocyte distribution width (RBC) [Ratio] 13.4 % Normal 11.6-14.6 [facility] Comment on above: Performed By: #### L 100.0100, L500.4050 #### [facility] [address] [place], [address] Hematocrit (Bld) [Volume fraction] 40.5 % Normal 37-47 [facility] Comment on above: Performed By: #### L 100.0100, L500.4050 #### [facility] [address] [place], [address] Hemoglobin (Bld) [Mass/Vol] 12.9 g/dL Normal 12.0-15.0 [facility] Comment on above: Performed By: #### L 100.0100, L500.4050 #### [facility] [address] [place], [address] IG% 0.200 Normal 0.0-0.9 [facility] Comment on above: Result Comment: IG% - Immature Granulocytes (promyelocytes, myelocytes and metamyelocytes) > 1% indicates that a LEFT SHIFT is Present. Performed By: #### L 100.0100, L500.4050 #### [facility] [address] [place], [address] Lymphocytes/100 WBC (Bld) 41.9 % High 19-41 [facility] Comment on above: Performed By: #### L 100.0100, L500.4050 #### [facility] [address] [place], [address] MCH (RBC) [Entitic mass] 29.3 pg Normal 27.0-32.0 [facility] Comment on above: Performed By: #### L 100.0100, L500.4050 #### [facility] [address] [place], [address] MCHC (RBC) [Mass/Vol] 31.9 g/dL Low 32-36 [facility] Comment on above: Performed By: #### L 100.0100, L500.4050 #### [facility] [address] [place], [address] MCV (RBC) [Entitic vol] 92.0 fL Normal 81-99 [facility] Comment on above: Performed By: #### L 100.0100, L500.4050 #### [facility] [address] [place], [address] Monocytes/100 WBC (Bld) 7.7 % Normal 0-10 [facility] Comment on above: Performed By: #### L 100.0100, L500.4050 #### [facility] [address] [place], [address] Neutrophils/100 WBC (Bld) 48.8 % Normal 47-70 [facility] Comment on above: Performed By: #### L 100.0100, L500.4050 #### [facility] [address] [place], [address] Nucleated RBC (Bld) [#/Vol] 0 10*3/uL Normal 0-5 [facility] Comment on above: Performed By: #### L 100.0100, L500.4050 #### [facility] [address] [place], [address] Platelet mean volume (Bld) [Entitic vol] 8.2 fL Normal 6.2-12.0 [facility] Comment on above: Performed By: #### L 100.0100, L500.4050 #### [facility] [address] [place], [address] Platelets (Bld) [#/Vol] 242 10*3/uL Normal 150-450 [facility] Comment on above: Performed By: #### L 100.0100, L500.4050 #### [facility] [address] [place], [address] RBC (Bld) [#/Vol] 4.40 10*6/uL Normal 4.2-5.4 [facility] Comment on above: Performed By: #### L 100.0100, L500.4050 #### [facility] [address] [place], [address] RDW SD 45.8 fl High 35.1-43.9 [facility] Comment on above: Performed By: #### L 100.0100, L500.4050 #### [facility] [address] [place], [address] WBC (Bld) [#/Vol] 5.7 10*3/uL Normal 4.4-11.0 [facility] Comment on above: Performed By: #### L 100.0100, L500.4050 #### [facility] [address] [place], [address] Comprehensive Metabolic Prof [facility] 05-17-2024 Albumin [Mass/Vol] 4.0 g/dL Normal 3.2-5.0 [facility] Comment on above: Performed By: #### L 100.0100, L500.4050 #### [facility] [address] [place], [address] Albumin/Globulin [Mass ratio] 1.1 {ratio} Normal 0.9-2.4 [facility] Comment on above: Performed By: #### L 100.0100, L500.4050 #### [facility] [address] [place], [address] ALK P 81 U/L Normal 45-117 [facility] Comment on above: Performed By: #### L 100.0100, L500.4050 #### [facility] [address] [place], [address] ALT [Catalytic activity/Vol] 20 U/L Normal 13-56 [facility] Comment on above: Performed By: #### L 100.0100, L500.4050 #### [facility] [address] [place], [address] AST [Catalytic activity/Vol] 20 U/L Normal 15-37 [facility] Comment on above: Performed By: #### L 100.0100, L500.4050 #### [facility] [address] [place], [address] Bilirubin [Mass/Vol] 0.70 mg/dL Normal 0.20-1.00 [facility] Comment on above: Result Comment: For patients on eltrombopag therapy, use of Dimension [place] TBIL is not recommended. Performed By: #### L 100.0100, L500.4050 #### [facility] [address] [place], [address] BUN/CRE 22.8 RATIO High 10-20 [facility] Comment on above: Performed By: #### L 100.0100, L500.4050 #### [facility] [address] [place], [address] CA,Total 9.6 mg/dL Normal 8.5-10.1 [facility] Comment on above: Performed By: #### L 100.0100, L500.4050 #### [facility] [address] [place], [address] Chloride [Moles/Vol] 105 mmol/L Normal 98-107 [facility] Comment on above: Performed By: #### L 100.0100, L500.4050 #### [facility] [address] [place], [address] CO2 [Moles/Vol] 25.0 mmol/L Normal 21.0-32.0 [facility] Comment on above: Performed By: #### L 100.0100, L500.4050 #### [facility] [address] [place], [address] Creatinine [Mass/Vol] 0.74 mg/dL Normal 0.55-1.02 [facility] Comment on above: Result Comment: The validity of the calculated GFR GFRAA in patients over 70 years has not been determined. Clinical correlation is essential. Performed By: #### L 100.0100, L500.4050 #### [facility] [address] [place], [address] ECRCL 92.77 ml/min Normal [facility] Comment on above: Performed By: #### L 100.0100, L500.4050 #### [facility] [address] [place], [address] EST GFR - AA 106 mL/min Normal >60 [facility] Comment on above: Result Comment: Afri can [place] GFR Calc Performed By: #### L 100.0100, L500.4050 #### [facility] [address] [place], [address] GAP 8 Normal 5-15 [facility] Comment on above: Performed By: #### L 100.0100, L500.4050 #### [facility] [address] [place], [address] GFR/1.73 sq M.predicted among non-blacks MDRD (S/P/Bld) [Vol rate/Area] 88 mL/min/{1.73_m2} Normal >60 [facility] Comment on above: Result Comment: Non- GFR Calc Performed By: #### L 100.0100, L500.4050 #### [facility] [address] [place], [address] Globulin (S) [Mass/Vol] 3.7 g/dL Normal 2.2-4.2 [facility] Comment on above: Performed By: #### L 100.0100, L500.4050 #### [facility] [address] [place], [address] Glucose [Mass/Vol] 84 mg/dL Normal 74-106 [facility] Comment on above: Performed By: #### L 100.0100, L500.4050 #### [facility] [address] [place], [address] Potassium [Moles/Vol] 3.8 mmol/L Normal 3.5-5.1 [facility] Comment on above: Performed By: #### L 100.0100, L500.4050 #### [facility] [address] [place], [address] Sodium [Moles/Vol] 138 mmol/L Normal 136-145 [facility] Comment on above: Performed By: #### L 100.0100, L500.4050 #### [facility] [address] [place], [address] T PROT 7.7 g/dL Normal 6.4-8.2 [facility] Comment on above: Performed By: #### L 100.0100, L500.4050 #### [facility] [address] [place], [address] Urea nitrogen [Mass/Vol] 17 mg/dL Normal 7-18 [facility] Comment on above: Performed By: #### L 100.0100, L500.4050 #### [facility] [address] [place], [address] Oncology Visit Reporton 04-27 Oncology Visit Report [facility] [place] [facility] [address] [place] [address] OFFICE VISIT Date of Service: 05/17/24 1556 MR#: [id number] Acct: [id number] Name: FABBY LION Rep #: [id number] : 1975 From: Stone Acosta MD Age/Sex: 49/F Location[place] [facility] [place] Status: Signed HPI Subjective Date of Service 05/17/24 Chief Complaint Anorectal cancer follow-up History of Present Illness 48-year-old female with a family history notable for colon cancer (father) who noted rectal bleeding around 2020 that progressively increased, rectal discomfort and constipation. Her past medical history is notable for being status post hysterectomy in 2009 for benign disease. To her knowledge she is HIV negative during pregnancies and in 2009 at the time of hysterectomy. 08/31/2021: CT abdomen/pelvis with contrast demonstrated a 3.3 x 3.5 x 4.7 cm enhancing lesion in the posterior right hepatic lobe causing mild right-sided mass-effect on the IVC, this lesion has been stable since 2017 is most likely benign representing hepatic adenoma or FNH, MRI liver protocol is recommended for further characterization. There is a mildly enhancing ill-defined eccentric soft tissue thickening and nodularity measuring 1.3 cm along the right rectal wall on images 89???92. No abdominal or pelvic lymphadenopathy. 09/25/2021: Patient underwent colonoscopy by Dr. Sanders: demonstrated a rectal mass, this is described as a growing sessile mass encompassing about half of the lumen of the colon. This is also palpable on rectal examination. 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 No other polyps or lesions were appreciated. October 21, 2021 PET/CT initial staging: IMPRESSION: 1. ABNORMAL EXAMINATION INDICATIVE OF MALIGNANT VIABLE NEOPLASM. 2. Increased glucose concentration defined in the lower pelvis, rectum-rectal vault fulfills quantitative criteria for viable neoplasm. 3. No other quantitatively significant hypermetabolic abnormalities are noted. There is no definitive scintigraphic evidence of distant metastatic disease. February 08, 2022 CT chest abdomen and pelvis: End of treatment restaging: IMPRESSION: 1. There is hepatomegaly with diffuse hepatic enlargement. 2. Stool throughout the colon. This can suggest constipation. 3. There focal wall thickening of the anus and rectum suggesting underlying mass. 4. Abnormal sclerotic focus along the superior endplate on the left side of L3. This is concerning for metastatic disease. August 09, 2022 CT chest and abdomen: IMPRESSION: Stable examination. August 12, 2022 pelvic MRI: IMPRESSION: No evidence of residual or recurrent rectal neoplasm. February 15, 2022 CT chest abdomen and pelvis: IMPRESSION: Persistent low-lying appearance of the cecum probable centrally located solid stool, however, given clinical history, a less likely focal mass should be excluded. Could consider short-term interval follow-up study which could include short-term follow-up CT with oral contrast or upper GI small bowel follow-through potentially colonoscopy if appropriate. No visualized focal consolidation and pleural effusion or suspicious masses within the chest. No visualized hepatic or adrenal metastasis. Small stable 4 mm hepatic cyst. Stable Punctate stone left kidney no hydronephrosis. Mild Degenerative change of the thoracolumbar spine. August 22, 2023 CT chest abdomen and pelvis: IMPRESSION: 1. No evidence of metastatic disease. 2. Stable 3 cm liver lesion suggestive of hemangioma. 3. Punctate left renal stone. February 10, 2024 CT chest abdomen and pelvis: IMPRESSION: Stable enhanced CT chest, abdomen T pelvis examination. Treatment summary and response: Concomitant chemoradiation with mitomycin C and continuous infusional 5-FU : 11/02/2021- 12/11/2021: received chemoradiation consisting of 5400 cGy delivered to the primary disease, 5040 cGy delivered to the potentially involved pelvic lymph nodes and 4500 cGy delivered to the pelvic and inguinal lymph nodes all in 30 fractions. [facility] Medical History UTI (urinary tract infection) Chills Hemoptysis Oral candidiasis Diarrhea due to drug CINV (chemotherapy-induced nausea and vomiting) Mucositis (ulcerative) due to antineoplastic therapy History of echocardiogram Depression Alcohol use Marijuana use Easy bruising Excessive bleeding Restless legs History of IBS Smoker Chronic bronchitis History of stress test Leg cramps Encounter for education Liver lesion Hypertension GERD (gastroesophageal reflux disease) Surgical History History of esophagogastroduodenoscopy (EGD) History of colonoscopy History of hysterectomy Family Histo (more content not included)... Normal [facility] Radiation Oncology Visiton 0 02-14-2024 Radiation Oncology Visit [facility] [address] [place] [address] OFFICE VISIT Date of Service: 02/14/24 1535 MR#: [id number] Acct: [id number] Name: FABBY LION Rep #: [id number] : 1975 From: Kia Villa DO Age/Sex: 48/F Location: [facility] [place] Status: Signed Intake Vital Signs 11/10/23 15:34 02/14/24 15:37 Height 5 ft 8 in 5 ft 8 in Weight: 165 lb 4 oz 167 lb 8 oz BMI 25.1 25.4 BP 120/84 H 120/84 H Blood Pressure Location Rt brachial Rt brachial Position Sitting Sitting Respiration 18 18 Pulse 87 87 Pulse Source Monitor Monitor Temp 97.0 F L 97.8 F Temperature Source Temporal Artery Temporal Artery Pulse Oximetry (%) 98 93 Oxygen Delivery Method room air room air Intake Visit Reasons: REVIEW CT SCAN FROM 02/09 Is patient in pain?: No Allergies lisinopril Allergy (Verified 02/14/24 15:39) ANTIHYPERTENSIVE peanut Allergy (Verified 02/14/24 15:39) Angioedema shellfish derived Allergy (Verified 02/14/24 15:39) Angioedema Medications ???Medication ???Instructions ???Recorded ???Confirmed ???Type multivitamin 1 tab PO DAILY 10/13/21 02/14/24 History ascorbate calcium (vitamin C) 500 500 mg PO DAILY 11/10/22 02/14/24 History mg tablet cholecalciferol (vitamin D3) 50 50 mcg PO DAILY 11/10/22 02/14/24 History mcg (2,000 unit) capsule PFSH PFSH Medical History UTI (urinary tract infection) Chills Hemoptysis Oral candidiasis Diarrhea due to drug CINV (chemotherapy-induced nausea and vomiting) Mucositis (ulcerative) due to antineoplastic therapy History of echocardiogram Depression Alcohol use Marijuana use Easy bruising Excessive bleeding Restless legs History of IBS Smoker Chronic bronchitis History of stress test Leg cramps Encounter for education Liver lesion Hypertension GERD (gastroesophageal reflux disease) Home Medications ???Medication ???Instructions ???Recorded ???Last Taken ???Type multivitamin 1 tab PO DAILY 10/13/21 Unknown History ascorbate calcium (vitamin C) 500 500 mg PO DAILY 11/10/22 Unknown History mg tablet cholecalciferol (vitamin D3) 50 50 mcg PO DAILY 11/10/22 Unknown History mcg (2,000 unit) capsule Allergy/AdvReac Type Severity Reaction Status Date / Time lisinopril Allergy ANTIHYPERTE Verified 02/14/24 15:39 NSIVE peanut Allergy Angioedema Verified 02/14/24 15:39 shellfish derived Allergy Angioedema Verified 02/14/24 15:39 Family History Grandfather Colon cancer Mother Diabetes Hypertension Grandmother Kidney disease Father Cancer unsure of exact diagnosis (maybe lung/colon) Surgical History History of esophagogastroduodenoscopy (EGD) History of colonoscopy History of hysterectomy Social History Smoking Status: Current every day smoker tobacco type: cigarettes Tobacco: How many years used: 20 alcohol intake: former substance use type: marijuana Diagnosis: Fabby Lion is a 48 year- old female 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 From 11/02/2021- 12/11/2021 she received definitive chemoradiation therapy. History of Present Illness: 2009: hysterectomy performed, pathology showed fibroids. 08/31/2021: CT abdomen/pelvis with contrast was performed. This demonstrated a 3.3 x 3.5 x 4.7 cm enhancing lesion in the posterior right hepatic lobe causing mild right-sided mass-effect on the IVC, this lesion has been stable since 2017 is most likely benign representing hepatic adenoma or FNH, MRI liver protocol is recommended for further characterization. There is a mildly enhancing ill-defined eccentric soft tissue thickening and nodularity measuring 1.3 cm along the right rectal wall on images 89???92. No abdominal or pelvic lymphadenopathy. 09/25/2021: Patient underwent colonoscopy. This demonstrated a rectal mass, this is described as a growing sessile mass encompassing about half of the lumen of the colon. This is also palpable on rectal examination. 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 No other polyps or lesions were appreciated. 10/14/2021: CT chest/abdomen/pelvis with contrast was performed. Distal rectal lesion consistent with known rectal carcinoma. No adenopathy. No evidence for distant metastatic disease. 10/19/2021: Abdominal MRI was performed. This demonstrated a 3 cm enhanc (more content not included)... Normal [facility] MA MAMMOGRAM SCREENING BILAT ERAL W/TOMOon 06-30-2023 MA MAMMOGRAM SCREENING BILATERAL W/ALFRED ORIGINAL FROM: [address] [address] PROCEDURE FOR: FABBY LION [address] [place] [id number] Home: PID#: [id number] Exam#: [id number] : 1975 Age: 48 TO: JOSE LALA APRN [facility] [address], [place] [address] Fax: NO FAX EXAMINATION: SCREENING DIGITAL BILATERAL MAMMOGRAM WITH TOMOSYNTHESIS, 06/29/2023 TECHNIQUE: Screening mammography of the bilateral breasts was performed with tomosynthesis. 2D standard and 3D tomosynthesis combination imaging performed through both breasts in the MLO and CC projection. Computer aided detection was utilized in the interpretation of this exam. COMPARISON: 04/15/2022 HISTORY: Screening. FINDINGS: BREAST DENSITY: Heterogeneously dense There are benign bilateral breast calcifications. There are no significant masses or calcifications. IMPRESSION: No mammographic evidence of malignancy. Continued screening with annual mammograms is recommended. BIRADS: MAMMOGRAM BI-RADS: 2: Benign finding RECALL: 1 year screening RECALL TYPE: mammo LETTER SENT: Normal BI-RADS 1 and 2 Interpreted by: Toan Gaytan MD Preliminary Report By: Toan Gaytan MD Electronically signed By Toan Gaytan MD Dictated Date: 06/30/2023 3:32:37 PM Prelim Date: 06/30/2023 3:34:48 PM Sign Date: 06/30/2023 3:34:48 PM Ordering Provider: JOSE LALA Information Systems Auditor: CAROLYN SCOTT RT(R) (M) letter sent: Normal BI-RADS 1 and 2 Mammogram BI-RADS: 2 Benign Normal [facility] ([place]) GLUon 06-14-2023 Glucose [Mass/Vol] 88 mg/dL Normal 70-105 [facility] ([place]) Comment on above: Performed By: #### G SHENG, LIPID #### [place] [address] LABORATORYOrdered By: Marga Cobb on 06-14-2023 Cholesterol [Mass/Vol] 250 mg/dL Invalid Interpretation Code 0 - 200 mg/dL AO ADM SS Comment on above: Interpretive Data: C holesterol Reference Interval: Less than 200 Desirable 200-239 Borderline high risk 240 and above High risk Cholesterol in HDL [Mass/Vol] 109 mg/dL Invalid Interpretation Code 40 - 60 mg/dL AO ADM SS Cholesterol in LDL [Mass/Vol] 132 mg/dL Invalid Interpretation Code 0 - 130 mg/dL AO ADM SS Triglyceride [Mass/Vol] 47 mg/dL Invalid Interpretation Code 0 - 150 mg/dL AO ADM SS Comment on above: Interpretive Data: T riglyceride Reference Interval: Less than 150 Normal 150-199 Borderline high risk 200-499 High risk 500 or higher Very high risk LABORATORYOrdered By: SYSTEM SYSTEM on 06-14-2023 Glucose [Mass/Vol] 88 mg/dL Invalid Interpretation Code 70 - 105 mg/dL AO ADM SS LIPIDon 06-14-2023 Cholesterol [Mass/Vol] 250 mg/dL High 0-200 [facility] ([place] Comment on above: Result Comment: Chol esterol Reference Interval: Less than 200 Desirable 200-239 Borderline high risk 240 and above High risk Performed By: #### G SHENG, LIPID #### [place] [address] [place], [place] [address] Cholesterol in HDL [Mass/Vol] 109 mg/dL High 40-60 [facility] ([place]) Comment on above: Performed By: #### G SHENG, LIPID #### [place] [address] [place], [place] [address] Cholesterol in LDL [Mass/Vol] 132 mg/dL High 0-130 [facility] ([place]) Comment on above: Performed By: #### G SHENG, LIPID #### [place] [address] [place], [place] [address] Triglyceride [Mass/Vol] 47 mg/dL Normal 0-150 [facility] ([place] Comment on above: Result Comment: Trig lyceride Reference Interval: Less than 150 Normal 150-199 Borderline high risk 200-499 High risk 500 or higher Very high risk Performed By: #### G SHENG, LIPID #### [address] [address] DIAGNOSTIC COLONOSCOPYon [facility] Gastro[facility]ology Patient Name: Fabby Lion Procedure Date: 05/16/2023 12:31 PM Date of : 1975 Admit Type: Outpatient Age: 48 Room: [place] [address] Gender: Female Note Status: Finalized Attending MD: Jose Kline MD, [id number] Procedure: Colonoscopy Indications: Personal history of malignant rectal neoplasm Providers: Jose Kline MD (Doctor), Anna Garcia RN (Nurse), Melvi Gonsalez RN (Nurse) Referring MD: Beau Pichardo APRN-CALEB (Referring MD) Medicines: Midazolam 5 mg IV, Fentanyl 125 micrograms IV Complications: No immediate complications. Procedure: Pre-Anesthesia Assessment: - Prior to the procedure, a History and Physical was performed, and patient medications and allergies were reviewed. The patient is competent. The risks and benefits of the procedure and the sedation options and risks were discussed with the patient. All questions were answered and informed consent was obtained. Patient identification and proposed procedure were verified by the physician and the nurse in the procedure room at 12:55 PM. Mental Status Examination: alert and oriented. Airway Examination: Mallampati Class I (tonsillar pillars visualized). Respiratory Examination: clear to auscultation. CV Examination: normal. Prophylactic Antibiotics: The patient does not require prophylactic antibiotics. Prior Anticoagulants: The patient has taken no anticoagulant or antiplatelet agents. ASA Grade Assessment: I - A normal, healthy patient. After reviewing the risks and benefits, the patient was deemed in satisfactory condition to undergo the procedure. The anesthesia plan was to use moderate sedation / analgesia (conscious sedation). Immediately prior to administration of medications, the patient was re-assessed for adequacy to receive sedatives. The heart rate, respiratory rate, oxygen saturations, blood pressure, adequacy of pulmonary ventilation, and response to care were monitored throughout the procedure. The physical status of the patient was re-assessed after the procedure. - Abdominal Examination: abdomen soft. - The physical status of the patient was re-assessed after the procedure. The Colonoscope was introduced through the anus and advanced to the cecum, identified by appendiceal orifice and ileocecal valve. The colonoscopy was performed without difficulty. The patient tolerated the procedure well. The quality of the bowel preparation was excellent. The ileocecal valve, appendiceal orifice, and rectum were photographed. Findings: The perianal and digital rectal examinations were normal. An area of mildly congested mucosa was found in the rectum. The exam was otherwise without abnormality. Impression: - Congested mucosa in the rectum. - The examination was otherwise normal. - No specimens collected. Recommendation: - Patient has a contact number available for emergencies. The signs and symptoms of potential delayed complications were discussed with the patient. Return to normal activities tomorrow. Written discharge instructions were provided to the patient. - Resume previous diet. - Continue present medications. - Repeat colonoscopy in 3 years for surveillance. - Return to my office in 3 months. Moderate Sedation: Moderate (conscious) sedation was administered by the nurse and supervised by the endoscopist. The following parameters were monitored: oxygen saturation, heart rate, blood pressure, and response to care. Total physician intraservice time was 26 minutes. Procedure Code(s): --- Professional --- (more content not included)... LAB, [facility] Radiology Study observation (narrative) [facility] Absolute lymphocyte countOrd ered By: Stone Acosta on 05-11-2023 Lymphocytes Auto (Unsp spec) [#/Vol] 1.70 10*3/uL 0.83-4.51 [facility] Basophil percentageOrdered B y: Stone Acosta on 05-11-2023 Basophils/100 WBC (Bld) 0.4 % 0-1 [facility] Bilirubin [Mass/Vol] 0.60 mg/dL 0.20-1.00 [facility] Comment on above: For patients on eltr ombopag therapy, use of Dimension [place] TBIL is not recommended. Chloride [Moles/Vol] 109 mmol/L 98-107 [facility] Eosinophils/100 WBC (Bld) 1.2 % 0-5 [facility] Glucose [Mass/Vol] 82 mg/dL 74-106 [facility] Neutrophils (Bld) [#/Vol] 2.8 10*3/uL 2.0-7.7 [facility] Neutrophils/100 WBC (Bld) 56.4 % 47-70 [facility] Potassium [Moles/Vol] 3.8 mmol/L 3.5-5.1 [facility] Protein [Mass/Vol] 8.0 g/dL 6.4-8.2 [facility] Sodium [Moles/Vol] 139 mmol/L 136-145 [facility] WBC (Bld) [#/Vol] 5.0 10*3/uL 4.4-11.0 [facility] Blood erythrocytes count (nu mber/volume)Ordered By: Stone Acosat on 05-11-2023 RBC (Bld) [#/Vol] 4.37 10*6/uL 4.2-5.4 [facility] Blood hemoglobin measurement (mass/volume)Ordered By: Stone Acosta on 05-11-2023 Hemoglobin (Bld) [Mass/Vol] 12.9 g/dL 12.0-15.0 [facility] Blood lymphocytes/100 leukoc ytesOrdered By: Stone Acosta on 05-11-2023 Lymphocytes/100 WBC (Bld) 33.7 % 19-41 [facility] Blood monocytes/100 leukocyt esOrdered By: [facility] Acosta on 05-11-2023 Monocytes/100 WBC (Bld) 8.1 % 0-10 [facility] Blood platelet mean volumeOr dered By: Stone Acosta on 05-11-2023 Platelet mean volume (Bld) [Entitic vol] 8.3 fL 6.2-12.0 [facility] Determination of erythrocyte mean corpuscular volume (MCV)Ordered By: [facility] Acosta on 05-11-2023 MCV (RBC) [Entitic vol] 95.2 fL 81-99 [facility] Hematocrit Auto (Bld) [Volum e fraction]Ordered By: [facility] Dave on 05-11-2023 Hematocrit (Bld) [Volume fraction] 41.6 % 37-47 [facility] Laboratory - Chemistry and C hemistry - challengeOrdered By: [facility] Dave on 05-11-2023 ALP [Catalytic activity/Vol] 86 U/L 45-117 [facility] ALT [Catalytic activity/Vol] 22 U/L 13-56 [facility] CO2 [Moles/Vol] 24.0 mmol/L 21.0-32.0 [facility] Globulin (S) [Mass/Vol] 3.9 g/dL 2.2-4.2 [facility] Urea nitrogen/Creatinine [Mass ratio] 14.8 mg/mg 10-20 [facility] Laboratory - Hematology and Cell countsOrdered By: [facility] Dave on 05-11-2023 Erythrocyte distribution width (RBC) [Entitic vol] 49.1 fL 35.1-43.9 [facility] Erythrocyte distribution width (RBC) [Ratio] 14.0 % 11.6-14.6 [facility] Immature granulocytes/100 WBC (Bld) 0.200 % 0.0-0.9 [facility] Comment on above: IG% - Immature Granu locytes (promyelocytes, myelocytes and metamyelocytes) > 1% indicates that a LEFT SHIFT is Present. MCH (RBC) [Entitic mass] 29.5 pg 27.0-32.0 [facility] Nucleated RBC/100 WBC (Bld) [Ratio] 0 % 0-5 [facility] MCHC Auto (RBC) [Mass/Vol]Or dered By: Stone Acosta on 05-11-2023 MCHC (RBC) [Mass/Vol] 31.0 g/dL 32-36 [facility] No Panel InformationOrdered By: Stone Acosta on 05-11-2023 Estimated Creatinine Clearance Calc 93.79 ml/min [facility] Estimated GFR (MDRD) Amer 107 mL/min >60 [facility] Comment on above: GFR Calc Estimated GFR (MDRD) Non-Af Amer 89 mL/min >60 [facility] Comment on above: Non- GFR Calc Platelets bldOrdered By: Manjeet Acosta on 05-11-2023 Platelets (Bld) [#/Vol] 250 10*3/uL 150-450 [facility] Serum or plasma albumin charli urement (mass/volume)Ordered By: Stone Acosta on 05-11-2023 Albumin [Mass/Vol] 4.1 g/dL 3.2-5.0 [facility] Serum or plasma albumin/glob ulin mass ratioOrdered By: Stone Acosta on 05-11-2023 Albumin/Globulin [Mass ratio] 1.1 {ratio} 0.9-2.4 [facility] Serum or plasma calcium charli urement (mass/volume)Ordered By: Stone Acosta on 05-11-2023 Calcium [Mass/Vol] 9.8 mg/dL 8.5-10.1 [facility] Serum or plasma creatinine m easurement (mass/volume)Ordered By: Stone Acosta on 05-11-2023 Creatinine [Mass/Vol] 0.74 mg/dL 0.55-1.02 [facility] Comment on above: The validity of the calculated GFR & GFRAA in patients over 70 years has not been determined. Clinical correlation is essential. Serum or plasma urea nitroge n measurement (mass/volume)Ordered By: Stone Acosta on 05-11-2023 Urea nitrogen [Mass/Vol] 11 mg/dL 7-18 [facility] Thin prep Papanicolaou smear with manual screeningOrdered By: Stone Acosta on 05-11-2023 Thin prep Papanicolaou smear with manual screening 18 U/L 15-37 [facility] Thin prep Papanicolaou smear with manual screening 02-07 [facility] .Auto Diffon 12-04-2022 Basophil, Absolute 0.0 10 3/mcL Normal 0.0-0.2 [facility] ([place]) Comment on above: Performed By: #### Bairon PATRICIO, LIPID #### [address] [address] Basophils/100 WBC (Bld) 0.6 % Normal 0.0-2.5 [facility] ([place]) Comment on above: Performed By: #### Bairon PATRICIO, LIPID #### [address] [address] Eosinophil, Absolute 0.0 10 3/mcL Normal 0.0-0.4 [facility] ([place]) Comment on above: Performed By: #### Bairon PATRICIO, LIPID #### [address] [address] Eosinophils/100 WBC (Bld) 1.2 % Normal 0.0-7.0 [facility] ([place]) Comment on above: Performed By: #### Bairon PATRICIO, LIPID #### [address] [address] Lymphocyte, Absolute 1.2 10 3/mcL Normal 0.8-3.9 [facility] ([place]) Comment on above: Performed By: #### Bairon PATRICIO, LIPID #### [address] [address] Lymphocytes/100 WBC (Bld) 37.4 % Normal 10.0-50.0 [facility] ([place]) Comment on above: Performed By: #### Bairon PATRICIO, LIPID #### [address] [address] Monocyte, Absolute 0.3 10 3/mcL Normal 0.2-1.0 [facility] ([place]) Comment on above: Performed By: #### Bairon PATRICIO, LIPID #### [address] [address] Monocytes/100 WBC (Bld) 7.9 % Normal 1.7-13.0 [facility] ([place]) Comment on above: Performed By: #### G SHENG, LIPID #### [place] [address] [address] Neutrophils/100 WBC (Bld) 52.9 % Normal 37.0-80.0 [facility] ([place]) Comment on above: Performed By: #### Bairon PATRICIO, LIPID #### [facility] [address] [address] .GFRon 12-04-2022 GFR Non- 87 ml/min/1.73sqm Normal [facility] ([place]) Comment on above: Result Comment: GFR Population mean for , Non- Americans Ages 20-29 = 116 mL/min/1.73 sq.m. Ages 30-39 = 107 mL/min/1.73 sq.m. Ages 40-49 = 99 mL/min/1.73 sq.m. Ages 50-59 = 93 mL/min/1.73 sq.m. Ages 60-69 = 85 mL/min/1.73 sq.m. Ages 70+ = 75 mL/min/1.73 sq.m. Chronic Kidney Disease: Less than 60 mL/min/1.73 square meters End Stage Renal Disease: Less than 15 mL/min/1.73 square meters Performed By: #### Bairon PATRICIO, LIPID #### [place] [address] [address] GFR 105 ml/min/1.73sqm Normal [facility] ([place]) Comment on above: Result Comment: GFR Population mean for , Non- Americans Ages 20-29 = 116 mL/min/1.73 sq.m. Ages 30-39 = 107 mL/min/1.73 sq.m. Ages 40-49 = 99 mL/min/1.73 sq.m. Ages 50-59 = 93 mL/min/1.73 sq.m. Ages 60-69 = 85 mL/min/1.73 sq.m. Ages 70+ = 75 mL/min/1.73 sq.m. Chronic Kidney Disease: Less than 60 mL/min/1.73 square meters End Stage Renal Disease: Less than 15 mL/min/1.73 square meters Performed By: #### Bairon PATRICIO, LIPID #### [address] [address] .MDWon 12-04-2022 Monocyte Distribution Width 15.50 Normal 0.00-20.00 [facility] ([place]) Comment on above: Result Comment: For ED adult patients suspected of sepsis, MDW<=20.0 does not rule out sepsis or risk of sepsis Performed By: #### Bairon PATRICIO, LIPID #### [address] [address] .NEUABSon 12-04-2022 Neutrophil, Absolute 1.7 10 3/mcL Low 2.9-6.2 [facility] ([place]) Comment on above: Performed By: #### Bairon PATRICIO, LIPID #### [address] [address] BMPon 12-04-2022 BUN/Creatinine Ratio 15 ratio Normal 7-27 [facility] ([place]) Comment on above: Performed By: #### Bairon PATRICIO, LIPID #### [address] [address] Calcium [Mass/Vol] 9.4 mg/dL Normal 8.4-10.2 [facility] ([place]) Comment on above: Performed By: #### Bairon PATRICIO, LIPID #### [address] [address] Chloride [Moles/Vol] 104 mmol/L Normal 98-107 [facility] ([place]) Comment on above: Performed By: #### Bairon PATRICIO, LIPID #### [address] [address] CO2 [Moles/Vol] 28 mmol/L Normal 22-29 [facility] ([place]) Comment on above: Performed By: #### Bairon PATRICIO, LIPID #### [address] [address] Creatinine [Mass/Vol] 0.72 mg/dL Normal 0.55-1.02 [facility] ([place]) Comment on above: Performed By: #### Bairon PATRICIO, LIPID #### [address] [address] Electrolyte Balance 7.0 mEq/L Normal 4.0-15.0 [facility] ([place]) Comment on above: Performed By: #### Bairon PATRICIO, LIPID #### [address] [address] Glucose [Mass/Vol] 102 mg/dL Normal 70-105 [facility] ([place]) Comment on above: Performed By: #### Bairon PATRICIO, LIPID #### [address] [address] Potassium [Moles/Vol] 4.1 mmol/L Normal 3.5-5.1 [facility] ([place]) Comment on above: Performed By: #### Bairon PATRICIO, LIPID #### [address] [address] Sodium [Moles/Vol] 139 mmol/L Normal 136-145 [facility] ([place]) Comment on above: Performed By: #### Bairon PATRICIO, LIPID #### [address] [address] Urea nitrogen [Mass/Vol] 11 mg/dL Normal 7-18 [facility] ([place]) Comment on above: Performed By: #### Bairon PATRICIO, LIPID #### [address] [address] CBCon 12-04-2022 Erythrocyte distribution width (RBC) [Ratio] 14.3 % Normal 11.5-14.5 [facility] ([place] Comment on above: Performed By: #### Bairon PATRICIO, LIPID #### [address] [address] Hematocrit (Bld) [Volume fraction] 39.3 % Normal 37.0-47.0 [facility] ([place] Comment on above: Performed By: #### Bairon PATRICIO, LIPID #### [address] [address] Hgb 13.1 G/dL Normal 12.0-16.0 [facility] ([place] Comment on above: Performed By: #### Bairon PATRICIO, LIPID #### [address] [address] MCH (RBC) [Entitic mass] 30.3 pg Normal 27.0-31.2 [facility] ([place] Comment on above: Performed By: #### Bairon PATRICIO, LIPID #### [address] [address] MCHC 33.4 G/dL Normal 33.0-37.0 [facility] ([place] Comment on above: Performed By: #### Bairon PATRICIO, LIPID #### [address] [address] MCV (RBC) [Entitic vol] 90.5 fL Normal 80.0-94.0 [facility] ([place] Comment on above: Performed By: #### Bairon PATRICIO, LIPID #### [address] [address] Platelet 254 10 3/mcL Normal 130-400 [facility] ([place]) Comment on above: Performed By: #### Bairon PATRICIO, LIPID #### [address] [address] Platelet mean volume (Bld) [Entitic vol] 6.1 fL Low 7.4-10.4 [facility] ([place] Comment on above: Performed By: #### Bairon PATRICIO, LIPID #### [address] [address] RBC 4.34 10 6/mcL Normal 4.20-5.40 [facility] ([place] Comment on above: Performed By: #### Bairon PATRICIO, LIPID #### [address] [address] WBC 3.2 10 3/mcL Low 4.6-10.8 [facility] ([place]) Comment on above: Performed By: #### Bairon PATRICIO, LIPID #### [address] [address] LABORATORYOrdered By: Norma Stewart on 12-04-2022 Basophil, Absolute 0.0 103/mcL Invalid Interpretation Code 0.0 - 0.2 10^3/mcL AO Workflow SS Basophils/100 WBC (Bld) 0.6 % Invalid Interpretation Code 0.0 - 2.5 % AO Workflow SS Eosinophil, Absolute 0.0 103/mcL Invalid Interpretation Code 0.0 - 0.4 10^3/mcL AO Workflow SS Eosinophils/100 WBC (Bld) 1.2 % Invalid Interpretation Code 0.0 - 7.0 % AO Workflow SS Erythrocyte distribution width (RBC) [Ratio] 14.3 % Invalid Interpretation Code 11.5 - 14.5 % AO Workflow SS Hematocrit (Bld) [Volume fraction] 39.3 % Invalid Interpretation Code 37.0 - 47.0 % AO Workflow SS Hemoglobin (Bld) [Mass/Vol] 13.1 G/dL Invalid Interpretation Code 12.0 - 16.0 G/dL AO Workflow SS Lymphocyte, Absolute 1.2 103/mcL Invalid Interpretation Code 0.8 - 3.9 10^3/mcL AO Workflow SS Lymphocytes/100 WBC (Bld) 37.4 % Invalid Interpretation Code 10.0 - 50.0 % AO Workflow SS MCH (RBC) [Entitic mass] 30.3 pg Invalid Interpretation Code 27.0 - 31.2 pg AO Workflow SS MCHC 33.4 G/dL Invalid Interpretation Code 33.0 - 37.0 G/dL AO Workflow SS MCV (RBC) [Entitic vol] 90.5 fL Invalid Interpretation Code 80.0 - 94.0 fL AO Workflow SS Monocyte distribution width Auto (Bld) [Entitic vol] 15.50 Invalid Interpretation Code 0.00 - 20.00 AO Workflow SS Comment on above: Result Comment: For ED adult patients suspected of sepsis, MDW<=20.0 does not rule out sepsis or risk of sepsis Monocyte, Absolute 0.3 103/mcL Invalid Interpretation Code 0.2 - 1.0 10^3/mcL AO Workflow SS Monocytes/100 WBC (Bld) 7.9 % Invalid Interpretation Code 1.7 - 13.0 % AO Workflow SS Neutrophil, Absolute 1.7 103/mcL Invalid Interpretation Code 2.9 - 6.2 10^3/mcL AO Workflow SS Neutrophils/100 WBC (Bld) 52.9 % Invalid Interpretation Code 37.0 - 80.0 % AO Workflow SS Platelet mean volume (Bld) [Entitic vol] 6.1 fL Invalid Interpretation Code 7.4 - 10.4 fL AO Workflow SS Platelets (Bld) [#/Vol] 254 103/mcL Invalid Interpretation Code 130 - 400 10^3/mcL AO Workflow SS RBC (Bld) [#/Vol] 4.34 106/mcL Invalid Interpretation Code 4.20 - 5.40 10^6/mcL AO Workflow SS WBC (Bld) [#/Vol] 3.2 103/mcL Invalid Interpretation Code 4.6 - 10.8 10^3/mcL AO Workflow SS LABORATORYOrdered By: SYSTEM SYSTEM on 12-04-2022 Calcium [Mass/Vol] 9.4 mg/dL Invalid Interpretation Code 8.4 - 10.2 mg/dL AO ADM SS Chloride [Moles/Vol] 104 mmol/L Invalid Interpretation Code 98 - 107 mmol/L AO ADM SS CO2 [Moles/Vol] 28 mmol/L Invalid Interpretation Code 22 - 29 mmol/L AO ADM SS Creatinine [Mass/Vol] 0.72 mg/dL Invalid Interpretation Code 0.55 - 1.02 mg/dL AO ADM SS Electrolyte Balance 7.0 mEq/L Invalid Interpretation Code 4.0 - 15.0 mEq/L AO ADM SS GFR 105 ml/min/1.73sqm Invalid Interpretation Code AO Chemistry S GFR Non- 87 ml/min/1.73sqm Invalid Interpretation Code AO Chemistry S Glucose [Mass/Vol] 102 mg/dL Invalid Interpretation Code 70 - 105 mg/dL AO ADM SS Potassium [Moles/Vol] 4.1 mmol/L Invalid Interpretation Code 3.5 - 5.1 mmol/L AO ADM SS Sodium [Moles/Vol] 139 mmol/L Invalid Interpretation Code 136 - 145 mmol/L AO ADM SS Troponin I.cardiac DL <= 0.01 ng/mL [Mass/Vol] 4.2 ng/L Invalid Interpretation Code 0.0 - 51.4 ng/L AO ADM SS Urea nitrogen [Mass/Vol] 11 mg/dL Invalid Interpretation Code 7 - 18 mg/dL AO ADM SS Urea nitrogen/Creatinine [Mass ratio] 15 ratio Invalid Interpretation Code 7 - 27 ratio AO ADM SS TROPHSon 12-04-2022 Troponin I High Sensitivity 4.2 ng/L Normal 0.0-51.4 [facility] ([place]) Comment on above: Performed By: #### M DW, BMP, CBC, ANEU, TROPHS, ADIFF, GFR ####[address] [place], [place] [address] XR CHEST 1 VIEWon 12-04-2022 XR CHEST 1 VIEW ORIGINAL EXAMINATION: ONE XRAY VIEW OF THE CHEST12/04/2022 8:20 am COMPARISON: 10/07/2020 HISTORY: ORDERING SYSTEM PROVIDED HISTORY: Reason for Exam: chest pain FINDINGS: The cardiomediastinal silhouette is within normal limits. No focal pulmonary consolidation, pneumothorax, or large pleural effusion visualized. No acute osseous abnormalities identified. Mildly degenerative thoracic spine and acromioclavicular joints. IMPRESSION: No acute findings. I have personally reviewed the images of this examination and agree with the resident's finding and interpretation. Interpreted by: Toan Negrete MD Preliminary Report By: Rik Cochran Electronically signed By Toan Negrete MD Dictated Date: 12/04/2022 8:21:13 AM Prelim Date: 12/04/2022 8:22:55 AM Sign Date: 12/04/2022 8:27:50 AM Ordering Provider: ROBERT Hutton [facility] ([place]) .Auto Diffon 07-22-2022 Basophil, Absolute 0.0 10 3/mcL Normal 0.0-0.2 [facility] ([place]) Comment on above: Performed By: #### G FR, VIDH, TSH, CMP, LIPID #### [address] [address] #### FOL, B12 #### [address] [address] Basophils/100 WBC (Bld) 0.8 % Normal 0.0-2.5 [facility] ([place]) Comment on above: Performed By: #### G FR, VIDH, TSH, CMP, LIPID #### [address] [address] #### FOL, B12 #### [address] [address] Eosinophil, Absolute 0.0 10 3/mcL Normal 0.0-0.4 [facility] ([place]) Comment on above: Performed By: #### G FR, VIDH, TSH, CMP, LIPID #### [address] [address] #### FOL, B12 #### [address] [address] Eosinophils/100 WBC (Bld) 1.1 % Normal 0.0-7.0 [facility] ([place]) Comment on above: Performed By: #### G FR, VIDH, TSH, CMP, LIPID #### [address] [address] #### FOL, B12 #### [address] [address] Lymphocyte, Absolute 0.9 10 3/mcL Normal 0.8-3.9 [facility] ([place]) Comment on above: Performed By: #### G FR, VIDH, TSH, CMP, LIPID #### [address] [address] #### FOL, B12 #### [address] [address] Lymphocytes/100 WBC (Bld) 26.7 % Normal 10.0-50.0 [facility] ([place]) Comment on above: Performed By: #### G FR, VIDH, TSH, CMP, LIPID #### [address] [address] #### FOL, B12 #### [address] [address] Monocyte, Absolute 0.2 10 3/mcL Normal 0.2-1.0 [facility] ([place]) Comment on above: Performed By: #### G FR, VIDH, TSH, CMP, LIPID #### [address] [address] #### FOL, B12 #### [address] [address] Monocytes/100 WBC (Bld) 7.2 % Normal 1.7-13.0 [facility] ([place]) Comment on above: Performed By: #### G FR, VIDH, TSH, CMP, LIPID #### [address] [address] #### FOL, B12 #### [address] [address] Neutrophils/100 WBC (Bld) 64.2 % Normal 37.0-80.0 [facility] ([place]) Comment on above: Performed By: #### G FR, VIDH, TSH, CMP, LIPID #### [address] [address] #### FOL, B12 #### [address] [address] .GFRon 07-22-2022 GFR 102 ml/min/1.73sqm Normal [facility] ([place]) Comment on above: Result Comment: GFR Population mean for , Non- Americans Ages 20-29 = 116 mL/min/1.73 sq.m. Ages 30-39 = 107 mL/min/1.73 sq.m. Ages 40-49 = 99 mL/min/1.73 sq.m. Ages 50-59 = 93 mL/min/1.73 sq.m. Ages 60-69 = 85 mL/min/1.73 sq.m. Ages 70+ = 75 mL/min/1.73 sq.m. Chronic Kidney Disease: Less than 60 mL/min/1.73 square meters End Stage Renal Disease: Less than 15 mL/min/1.73 square meters Performed By: #### G FR, VIDH, TSH, CMP, LIPID #### [address] [address] #### FOL, B12 #### [address] [address] GFR Non- 84 ml/min/1.73sqm Normal [facility] ([place]) Comment on above: Result Comment: GFR Population mean for , Non- Americans Ages 20-29 = 116 mL/min/1.73 sq.m. Ages 30-39 = 107 mL/min/1.73 sq.m. Ages 40-49 = 99 mL/min/1.73 sq.m. Ages 50-59 = 93 mL/min/1.73 sq.m. Ages 60-69 = 85 mL/min/1.73 sq.m. Ages 70+ = 75 mL/min/1.73 sq.m. Chronic Kidney Disease: Less than 60 mL/min/1.73 square meters End Stage Renal Disease: Less than 15 mL/min/1.73 square meters Performed By: #### G FR, VIDH, TSH, CMP, LIPID #### [address] [address] #### FOL, B12 #### [address] [address] .NEUABSon 07-22-2022 Neutrophil, Absolute 2.2 10 3/mcL Low 2.9-6.2 [facility] ([place]) Comment on above: Performed By: #### G FR, VIDH, TSH, CMP, LIPID #### [address] [address] #### FOL, B12 #### [address] [address] B12on 07-22-2022 Cobalamin (Vitamin B12) [Mass/Vol] 614 pg/mL Normal 211-911 [facility] ([place]) Comment on above: Performed By: #### G SHENG, LIPID #### [address] [address] CBCon 07-22-2022 Erythrocyte distribution width (RBC) [Ratio] 14.5 % Normal 11.5-14.5 [facility] ([place]) Comment on above: Performed By: #### G FR, VIDH, TSH, CMP, LIPID #### [address] [address] #### FOL, B12 #### [place] [address] Hematocrit (Bld) [Volume fraction] 38.4 % Normal 37.0-47.0 [facility] ([place]) Comment on above: Performed By: #### G FR, VIDH, TSH, CMP, LIPID #### [place] [address] #### FOL, B12 #### [address] [address] Hgb 13.0 G/dL Normal 12.0-16.0 [facility] ([place] Comment on above: Performed By: #### G FR, VIDH, TSH, CMP, LIPID #### [place] [address] #### FOL, B12 #### [address] [address] MCH (RBC) [Entitic mass] 31.4 pg High 27.0-31.2 [facility] ([place]) Comment on above: Performed By: #### G FR, VIDH, TSH, CMP, LIPID #### [place] [address] #### FOL, B12 #### [place] [address] MCHC 33.8 G/dL Normal 33.0-37.0 [facility] ([place]) Comment on above: Performed By: #### G FR, VIDH, TSH, CMP, LIPID #### [place] [address] #### FOL, B12 #### [place] [address] MCV (RBC) [Entitic vol] 92.9 fL Normal 80.0-94.0 [facility] ([place]) Comment on above: Performed By: #### G FR, VIDH, TSH, CMP, LIPID #### [place] [address] #### FOL, B12 #### [place] [address] Platelet 240 10 3/mcL Normal 130-400 [facility] ([place]) Comment on above: Performed By: #### G FR, VIDH, TSH, CMP, LIPID #### [place] [address] #### FOL, B12 #### [place] [address] Platelet mean volume (Bld) [Entitic vol] 6.1 fL Low 7.4-10.4 [facility] ([place]) Comment on above: Performed By: #### G FR, VIDH, TSH, CMP, LIPID #### [place] [address] #### FOL, B12 #### [address] [address] RBC 4.14 10 6/mcL Low 4.20-5.40 [facility] ([place] Comment on above: Performed By: #### G FR, VIDH, TSH, CMP, LIPID #### [address] [address] #### FOL, B12 #### [place] [address] WBC 3.4 10 3/mcL Low 4.6-10.8 [facility] ([place] Comment on above: Performed By: #### G FR, VIDH, TSH, CMP, LIPID #### [place] [address] #### FOL, B12 #### [place] [address] CMPon 07-22-2022 Albumin Level 4.1 G/dL Normal 3.5-5.0 [facility] ([place] Comment on above: Performed By: #### G FR, VIDH, TSH, CMP, LIPID #### [place] [address] #### FOL, B12 #### [place] [address] Albumin/Globulin [Mass ratio] 1.3 {ratio} Normal 1.1-2.5 [facility] ([place] Comment on above: Performed By: #### G FR, VIDH, TSH, CMP, LIPID #### [place] [address] #### FOL, B12 #### [place] [address] ALP [Catalytic activity/Vol] 77 U/L Normal 40-135 [facility] ([place] Comment on above: Performed By: #### G FR, VIDH, TSH, CMP, LIPID #### [place] [address] #### FOL, B12 #### [place] [address] ALT [Catalytic activity/Vol] 20 U/L Normal 14-59 [facility] ([place] Comment on above: Performed By: #### G FR, VIDH, TSH, CMP, LIPID #### [address] [address] #### FOL, B12 #### [address] [address] AST [Catalytic activity/Vol] 14 U/L Normal 10-40 [facility] ([place] Comment on above: Performed By: #### G FR, VIDH, TSH, CMP, LIPID #### [place] [address] #### FOL, B12 #### [address] [address] Bili Total 0.6 mg/dL Normal 0.2-1.0 [facility] ([place]) Comment on above: Result Comment: Use of this assay is not recommended for patients undergoing treatment with eltrombopag due to the potential for falsely elevated results. Performed By: #### G FR, VIDH, TSH, CMP, LIPID #### [place] [address] #### FOL, B12 #### [address] [address] BUN/Creatinine Ratio 16 ratio Normal 7-27 [facility] ([place]) Comment on above: Performed By: #### G FR, VIDH, TSH, CMP, LIPID #### [place] [address] #### FOL, B12 #### [address] [address] Calcium [Mass/Vol] 9.8 mg/dL Normal 8.4-10.2 [facility] ([place]) Comment on above: Performed By: #### G FR, VIDH, TSH, CMP, LIPID #### [place] [address] #### FOL, B12 #### [address] [address] Chloride [Moles/Vol] 106 mmol/L Normal 98-107 [facility] ([place]) Comment on above: Performed By: #### G FR, VIDH, TSH, CMP, LIPID #### [address] [address] #### FOL, B12 #### [address] [address] CO2 [Moles/Vol] 30 mmol/L High 22-29 [facility] ([place] Comment on above: Performed By: #### G FR, VIDH, TSH, CMP, LIPID #### [place] [address] #### FOL, B12 #### [address] [address] Creatinine [Mass/Vol] 0.74 mg/dL Normal 0.55-1.02 [facility] ([place] Comment on above: Performed By: #### G FR, VIDH, TSH, CMP, LIPID #### [place] [address] #### FOL, B12 #### [address] [address] Electrolyte Balance 5.0 mEq/L Normal 4.0-15.0 [facility] ([place]) Comment on above: Performed By: #### G FR, VIDH, TSH, CMP, LIPID #### [place] [address] #### FOL, B12 #### [address] [address] Globulin 3.2 G/dL Normal [facility] ([place]) Comment on above: Performed By: #### G FR, VIDH, TSH, CMP, LIPID #### [place] [address] #### FOL, B12 #### [address] [address] Glucose [Mass/Vol] 91 mg/dL Normal 70-105 [facility] ([place]) Comment on above: Performed By: #### G FR, VIDH, TSH, CMP, LIPID #### [address] [address] #### FOL, B12 #### [address] [address] Potassium [Moles/Vol] 4.9 mmol/L Normal 3.5-5.1 [facility] ([place]) Comment on above: Performed By: #### G FR, VIDH, TSH, CMP, LIPID #### [place] [address] #### FOL, B12 #### [address] [address] Sodium [Moles/Vol] 141 mmol/L Normal 136-145 [facility] ([place]) Comment on above: Performed By: #### G FR, VIDH, TSH, CMP, LIPID #### [place] [address] #### FOL, B12 #### [address] [address] Total Protein 7.3 G/dL Normal 6.4-8.2 [facility] ([place] Comment on above: Performed By: #### G FR, VIDH, TSH, CMP, LIPID #### [place] [address] #### FOL, B12 #### [address] [address] Urea nitrogen [Mass/Vol] 12 mg/dL Normal 7-18 [facility] ([place] Comment on above: Performed By: #### G FR, VIDH, TSH, CMP, LIPID #### [address] [address] #### FOL, B12 #### [address] [address] FOLon 07-22-2022 Folate 19.32 ng/mL Normal 5.38-24.00 [facility] ([place] Comment on above: Performed By: #### G SHENG, LIPID #### [address] [address] LIPIDon 07-22-2022 Cholesterol [Mass/Vol] 250 mg/dL High 0-200 [facility] ([place] Comment on above: Result Comment: Chol esterol Reference Interval: Less than 200 Desirable 200-239 Borderline high risk 240 and above High risk Performed By: #### G FR, VIDH, TSH, CMP, LIPID #### [address] [address] #### FOL, B12 #### [address] [address] Cholesterol in HDL [Mass/Vol] 100 mg/dL High 40-60 [facility] ([place] Comment on above: Performed By: #### G FR, VIDH, TSH, CMP, LIPID #### [place] [address] #### FOL, B12 #### [address] [address] Cholesterol in LDL [Mass/Vol] 141 mg/dL High 0-130 [facility] ([place] Comment on above: Performed By: #### G FR, VIDH, TSH, CMP, LIPID #### [place] [address] #### FOL, B12 #### [address] [address] Triglyceride [Mass/Vol] 46 mg/dL Normal 0-150 [facility] ([place] Comment on above: Result Comment: Trig lyceride Reference Interval: Less than 150 Normal 150-199 Borderline high risk 200-499 High risk 500 or higher Very high risk Performed By: #### G FR, VIDH, TSH, CMP, LIPID #### [place] [address] #### FOL, B12 #### [address] [address] TSHon 07-22-2022 TSH Qn 0.43 m[IU]/L Normal 0.36-3.74 [facility] ([place]) Comment on above: Performed By: #### G SHENG, LIPID #### [address] [address] VIDHon 07-22-2022 Vit. D 25-Hydroxy 30.3 ng/mL Normal [facility] ([place]) Comment on above: Result Comment: Inte rpretive Values Based on Total 25(OH) Vitamin D: Deficient <20 ng/mL Insufficient 20 - <30 ng/mL Sufficient 30-100 ng/mL Performed By: #### G SHENG, LIPID #### [place] [address] [place], [place] [address] Absolute lymphocyte counton 06-09-2022 Lymphocytes Auto (Unsp spec) [#/Vol] 0.90 10*3/uL 0.83-4.51 [facility] Work Phone: Basophil percentageon 2021 Basophils/100 WBC (Bld) 0.3 % 0-1 [facility] Work Phone: [phone] Bilirubin [Mass/Vol] 0.70 mg/dL 0.20-1.00 [facility] Work Phone: Comment on above: For patients on eltr ombopag therapy, use of [employer] [place] TBIL is not recommended. Chloride [Moles/Vol] 109 mmol/L 98-107 [facility] Work Phone: Eosinophils/100 WBC (Bld) 0.8 % 0-5 [facility] Work Phone: Glucose [Mass/Vol] 101 mg/dL 74-106 [facility] Work Phone: [phone] Comment on above: Fasting Glucose resu lt from 100 to 125 mg/dL suggests IMPAIRED HOMEOSTASIS per A.D.A. criteria. Neutrophils (Bld) [#/Vol] 2.3 10*3/uL 2.0-7.7 [facility] Work Phone: Neutrophils/100 WBC (Bld) 64.0 % 47-70 [facility] Work Phone: Potassium [Moles/Vol] 3.9 mmol/L 3.5-5.1 [facility] Work Phone: Protein [Mass/Vol] 7.3 g/dL 6.4-8.2 [facility] Work Phone: Sodium [Moles/Vol] 142 mmol/L 136-145 [facility] Work Phone: [phone] WBC (Bld) [#/Vol] 3.6 10*3/uL 4.4-11.0 [facility] Work Phone: Blood erythrocytes count (nu mber/volume)on 06-09-2022 RBC (Bld) [#/Vol] 3.95 10*6/uL 4.2-5.4 [facility]: Blood hemoglobin measurement (mass/volume)on 06-09-2022 Hemoglobin (Bld) [Mass/Vol] 12.0 g/dL 12.0-15.0 [facility] Work Phone: [phone] Blood lymphocytes/100 leukoc yteson 06-09-2022 Lymphocytes/100 WBC (Bld) 25.3 % 19-41 [facility] Work Phone: Blood monocytes/100 leukocyt eson 06-09-2022 Monocytes/100 WBC (Bld) 9.3 % 0-10 [facility] Work Phone: Blood platelet mean volumeon 06-09-2022 Platelet mean volume (Bld) [Entitic vol] 8.2 fL 6.2-12.0 [facility] Work Phone: Determination of erythrocyte mean corpuscular volume (MCV)on 06-09-2022 MCV (RBC) [Entitic vol] 93.7 fL 81-99 [facility] Work Phone: Hematocrit Auto (Bld) [Volum e fraction]on 06-09-2022 Hematocrit (Bld) [Volume fraction] 37.0 % 37-47 [facility] Work Phone: Laboratory - Chemistry and C hemistry - challengeon 06-09-2022 ALP [Catalytic activity/Vol] 66 U/L 45-117 [facility] Work Phone: ALT [Catalytic activity/Vol] 21 U/L 13-56 [facility] Work Phone: CO2 [Moles/Vol] 28.0 mmol/L 21.0-32.0 [facility] Work Phone: Globulin (S) [Mass/Vol] 3.6 g/dL 2.2-4.2 [facility] Work Phone: Urea nitrogen/Creatinine [Mass ratio] 16.0 mg/mg 10-20 [facility] Work Phone: Laboratory - Hematology and Cell countson 06-09-2022 Erythrocyte distribution width (RBC) [Entitic vol] 49.0 fL 35.1-43.9 [facility] Work Phone: Erythrocyte distribution width (RBC) [Ratio] 14.3 % 11.6-14.6 [facility] [facility] Work Phone: Immature granulocytes/100 WBC (Bld) 0.300 % 0.0-0.9 [facility] Work Phone: Comment on above: IG% - Immature Granu locytes (promyelocytes, myelocytes and metamyelocytes) > 1% indicates that a LEFT SHIFT is Present. MCH (RBC) [Entitic mass] 30.4 pg 27.0-32.0 [facility] Work Phone: Nucleated RBC/100 WBC (Bld) [Ratio] 0 % 0-5 [facility] Work Phone: MCHC Auto (RBC) [Mass/Vol]on 06-09-2022 MCHC (RBC) [Mass/Vol] 32.4 g/dL 32-36 [facility] Work Phone: No Panel Informationon 06-09 Estimated Creatinine Clearance Calc 101.68 ml/min [facility] Work Phone: Estimated GFR (MDRD) Amer 117 mL/min >60 [facility] Work Phone: Comment on above: GFR Calc Estimated GFR (MDRD) Non-Af Amer 97 mL/min >60 [facility] Work Phone: Comment on above: Non- GFR Calc Platelets bldon 06-09-2022 Platelets (Bld) [#/Vol] 221 10*3/uL 150-450 [facility] Work Phone: Serum or plasma albumin charli urement (mass/volume)on 06-09-2022 Albumin [Mass/Vol] 3.7 g/dL 3.2-5.0 [facility] Work Phone: Serum or plasma albumin/glob ulin mass ratioon 06-09-2022 Albumin/Globulin [Mass ratio] 1.0 {ratio} 0.9-2.4 [facility] Work Phone: Serum or plasma calcium charli urement (mass/volume)on 06-09-2022 Calcium [Mass/Vol] 9.5 mg/dL 8.5-10.1 [facility] Work Phone: Serum or plasma creatinine m easurement (mass/volume)on 06-09-2022 Creatinine [Mass/Vol] 0.69 mg/dL 0.55-1.02 [facility] Work Phone: Comment on above: The validity of the calculated GFR & GFRAA in patients over 70 years has not been determined. Clinical correlation is essential. Serum or plasma urea nitroge n measurement (mass/volume)on 06-09-2022 Urea nitrogen [Mass/Vol] 11 mg/dL 7-18 [facility] Work Phone: Thin prep Papanicolaou smear with manual screeningon 06-09-2022 Thin prep Papanicolaou smear with manual screening 17 U/L 15-37 [facility] Work Phone: Thin prep Papanicolaou smear with manual screening 5 5-15 [facility] Work Phone: Absolute lymphocyte counton 03-22-2022 Lymphocytes Auto (Unsp spec) [#/Vol] 0.45 10*3/uL 0.83-4.51 [facility] Work Phone: Basophil percentageon 2021 Basophil percentage 0-5 SEEN /hpf 0-5 [facility] Work Phone: Basophils/100 WBC (Bld) 0.4 % 0-1 [facility] Work Phone: Bilirubin [Mass/Vol] 0.40 mg/dL 0.20-1.00 [facility] Work Phone: Comment on above: For patients on eltr ombopag therapy, use of Dimension [place] TBIL is not recommended. Chloride [Moles/Vol] 106 mmol/L 98-107 [facility] Work Phone: Eosinophils/100 WBC (Bld) 0.2 % 0-5 [facility] Work Phone: [phone] Glucose [Mass/Vol] 92 mg/dL 74-106 [facility] Work Phone: Lactate [Moles/Vol] 0.5 mmol/L 0.4-2.0 [facility] Work Phone: [phone] Neutrophils (Bld) [#/Vol] 3.7 10*3/uL 2.0-7.7 [facility] Work Phone: Neutrophils/100 WBC (Bld) 77.2 % 47-70 [facility] Work Phone: Potassium [Moles/Vol] 3.5 mmol/L 3.5-5.1 [facility] Work Phone: Protein [Mass/Vol] 7.1 g/dL 6.4-8.2 [facility] Work Phone: Sodium [Moles/Vol] 138 mmol/L 136-145 [facility] Work Phone: [phone] WBC (Bld) [#/Vol] 4.7 10*3/uL 4.4-11.0 [facility] Work Phone: Bilirubin Test strip Ql (U)o n 03-22-2022 Bilirubin Ql (U) Negative Negative [facility] Work Phone: Blood erythrocytes count (nu mber/volume)on 03-22-2022 RBC (Bld) [#/Vol] 3.68 10*6/uL 4.2-5.4 [facility] Work Phone: [phone] Blood hemoglobin measurement (mass/volume)on 03-22-2022 Hemoglobin (Bld) [Mass/Vol] 11.6 g/dL 12.0-15.0 [facility] Work Phone: Blood lymphocytes/100 leukoc yteson 03-22-2022 Lymphocytes/100 WBC (Bld) 9.5 % 19-41 [facility] Work Phone: Blood manual differential co mment interpretation (narrative result)on 03-22-2022 Manual differential comment Carlos (Bld) [Interp] SEE COMMENT [facility] Work Phone: Comment on above: LYMPHOPENIA NOTED Blood monocytes/100 leukocyt eson 03-22-2022 Monocytes/100 WBC (Bld) 12.3 % 0-10 [facility] Work Phone: Blood platelet adequacy dete ction by light microscopyon 03-22-2022 Platelets LM Ql (Bld) ADEQUATE ADEQ [facility] Work Phone: Blood platelet mean volumeon 03-22-2022 Platelet mean volume (Bld) [Entitic vol] 8.2 fL 6.2-12.0 [facility] Work Phone: Determination of erythrocyte mean corpuscular volume (MCV)on 03-22-2022 MCV (RBC) [Entitic vol] 97.3 fL 81-99 [facility] Work Phone: Hematocrit Auto (Bld) [Volum e fraction]on 03-22-2022 Hematocrit (Bld) [Volume fraction] 35.8 % 37-47 [facility] Work Phone: Ketones Test strip Ql (U)on 03-22-2022 Ketones Ql (U) Negative Negative [facility] Work Phone: Laboratory - Chemistry and C hemistry - challengeon 03-22-2022 ALP [Catalytic activity/Vol] 54 U/L 45-117 [facility] Work Phone: ALT [Catalytic activity/Vol] 15 U/L 13-56 [facility] Work Phone: CO2 [Moles/Vol] 26.0 mmol/L 21.0-32.0 [facility] Work Phone: Globulin (S) [Mass/Vol] 3.5 g/dL 2.2-4.2 [facility] Work Phone: Urea nitrogen/Creatinine [Mass ratio] 11.5 mg/mg 10-20 [facility] Work Phone: Laboratory - Hematology and Cell countson 03-22-2022 Anisocytosis Ql (Bld) 1+ [facility] Work Phone: Erythrocyte distribution width (RBC) [Entitic vol] 47.4 fL 35.1-43.9 [facility] Work Phone: Erythrocyte distribution width (RBC) [Ratio] 13.2 % 11.6-14.6 [facility] Work Phone: Immature granulocytes/100 WBC (Bld) 0.400 % 0.0-0.9 [facility] Work Phone: Comment on above: IG% - Immature Granu locytes (promyelocytes, myelocytes and metamyelocytes) > 1% indicates that a LEFT SHIFT is Present. MCH (RBC) [Entitic mass] 31.5 pg 27.0-32.0 [facility] Work Phone: Nucleated RBC/100 WBC (Bld) [Ratio] 0 % 0-5 [facility] Work Phone: Laboratory - Microbiology an d Antimicrobial susceptibilityon 03-22-2022 SARS-CoV-2 (COVID-19) RNA PUNEET+probe Ql (Unsp spec) Detected Not Detect [facility] Work Phone: Comment on above: Normal Reference Ran ge: Not DetectedMethod:(RT-PCR) real-time reverse transcriptase PCRLuminex DENIA Instrument*The Food and Drug Administration (FDA) has issued an Emergency Use Authorization (EAU) for the DENIA SARS-CoV-2 Assay for the rapid detection of the virus that causes COVID-19. This test has been validated, but the FDAs independent review of this validation is pending.*Negative results do not preclude infection and should not be used as the sole basis for treatment or patient management. Optimum specimen types and timing for peak viral levels during infections caused by SARS-CoV-2 have not been determined. Collection of multiple specimens from the same patient may be necessary to detect the virus. The possibility of a false negative result should be considered if the patient has clinical presentation or has had recent exposure. MCHC Auto (RBC) [Mass/Vol]on 03-22-2022 MCHC (RBC) [Mass/Vol] 32.4 g/dL 32-36 [facility] Work Phone: Macrocytes detectionon 03-22 Macrocytes Ql (Bld) 1+ [facility] Work Phone: Mucus LM Ql (Urine sed)on Mucus Ql (Urine sed) 1+ /hpf [facility] Work Phone: Nitrite Test strip Ql (U)on 03-22-2022 Nitrite Ql (U) Negative Negative [facility] Work Phone: No Panel Informationon 03-22 Estimated Creatinine Clearance Calc 100.22 ml/min [facility] Work Phone: Estimated GFR (MDRD) Amer 116 mL/min >60 [facility] Work Phone: Comment on above: GFR Calc Estimated GFR (MDRD) Non-Af Amer 96 mL/min >60 [facility] Work Phone: Comment on above: Non- GFR Calc Culture Urine <10,000 cfu/ml. No Significant growth. Sensitivity not indicated. [facility] Work Phone: Platelets bldon 03-22-2022 Platelets (Bld) [#/Vol] 219 10*3/uL 150-450 [facility] Work Phone: Protein Test strip Ql (U)on 03-22-2022 Protein Ql (U) Negative Negative [facility] Work Phone: RBC morphologyon 03-22-2022 RBC morphology finding Nom (Bld) N CHROM NORMAL NORM C&C [facility] Work Phone: Serum or plasma albumin charli urement (mass/volume)on 03-22-2022 Albumin [Mass/Vol] 3.6 g/dL 3.2-5.0 [facility] Work Phone: Serum or plasma albumin/glob ulin mass ratioon 03-22-2022 Albumin/Globulin [Mass ratio] 1.0 {ratio} 0.9-2.4 [facility] Work Phone: Serum or plasma calcium chalri urement (mass/volume)on 03-22-2022 Calcium [Mass/Vol] 9.0 mg/dL 8.5-10.1 [facility] Work Phone: Serum or plasma creatinine m easurement (mass/volume)on 03-22-2022 Creatinine [Mass/Vol] 0.70 mg/dL 0.55-1.02 [facility] Work Phone: Comment on above: The validity of the calculated GFR & GFRAA in patients over 70 years has not been determined. Clinical correlation is essential. Serum or plasma urea nitroge n measurement (mass/volume)on 03-22-2022 Urea nitrogen [Mass/Vol] 8 mg/dL 7-18 [facility] Work Phone: Squamous epithelial cells de tection in urine sediment by light microscopyon 03-22-2022 Epithelial cells.squamous LM Ql (Urine sed) 5-10 SEEN /hpf 5-10 [facility] Work Phone: Thin prep Papanicolaou smear with manual screeningon 03-22-2022 Thin prep Papanicolaou smear with manual screening 15 U/L 15-37 [facility] Work Phone: Thin prep Papanicolaou smear with manual screening 6 5-15 [facility] Work Phone: Urine blood detectionon 02-25 RBC Ql (U) 150 /ul Negative [facility] Work Phone: RBC Ql (U) 10-25 SEEN /hpf 0-5 [facility] Work Phone: Urine clarityon 03-22-2022 Clarity (U) Sl. Cloudy Clear [facility] Work Phone: Urine color determinationon 03-22-2022 Color (U) Yellow Yellow [facility] Work Phone: Urine glucose detectionon Glucose Ql (U) Normal mg/dl Normal [facility] Work Phone: Urine leukocyte esterase det ection by dipstickon 03-22-2022 Leukocyte esterase Test strip Ql (U) Negative Negative [facility] Work Phone: Urine pHon 03-22-2022 pH (U) 7.0 [pH] 5.0 - 8.0 [facility] Work Phone: Urine sediment bacteria coun t by microscopy (number/high power field)on 03-22-2022 Bacteria LM.HPF (Urine sed) [#/Area] 2 /[HPF] None Seen [facility] Work Phone: Urine specific gravity measu rementon 03-22-2022 Specific gravity (U) [Rel density] 1.015 1.002-1.030 [facility] Work Phone: Urobilinogen Auto test strip Ql (U)on 03-22-2022 Urobilinogen Ql (U) Normal mg/dl Normal [facility] Work Phone: Absolute lymphocyte counton 02-15-2022 Lymphocytes Auto (Unsp spec) [#/Vol] 0.87 10*3/uL 0.83-4.51 [facility] Work Phone: Basophil percentageon 2021 Basophils/100 WBC (Bld) 0.3 % 0-1 [facility] Work Phone: Bilirubin [Mass/Vol] 0.50 mg/dL 0.20-1.00 [facility] Work Phone: Comment on above: For patients on eltr ombopag therapy, use of Dimension [place] TBIL is not recommended. Chloride [Moles/Vol] 110 mmol/L 98-107 [facility] Work Phone: Eosinophils/100 WBC (Bld) 1.3 % 0-5 [facility] Work Phone: Glucose [Mass/Vol] 92 mg/dL 74-106 [facility] Work Phone: Neutrophils (Bld) [#/Vol] 2.6 10*3/uL 2.0-7.7 [facility] Work Phone: Neutrophils/100 WBC (Bld) 66.8 % 47-70 [facility] Work Phone: Potassium [Moles/Vol] 3.9 mmol/L 3.5-5.1 [facility] Work Phone: Protein [Mass/Vol] 6.9 g/dL 6.4-8.2 [facility] Work Phone: [phone] Sodium [Moles/Vol] 140 mmol/L 136-145 [facility] Work Phone: [phone] WBC (Bld) [#/Vol] 3.9 10*3/uL 4.4-11.0 [facility] Work Phone: [phone] Blood erythrocytes count (nu mber/volume)on 02-15-2022 RBC (Bld) [#/Vol] 3.41 10*6/uL 4.2-5.4 [facility] Work Phone: Blood hemoglobin measurement (mass/volume)on 02-15-2022 Hemoglobin (Bld) [Mass/Vol] 10.7 g/dL 12.0-15.0 [facility] Work Phone: Blood lymphocytes/100 leukoc yteson 02-15-2022 Lymphocytes/100 WBC (Bld) 22.3 % 19-41 [facility] Work Phone: Blood monocytes/100 leukocyt eson 02-15-2022 Monocytes/100 WBC (Bld) 9.0 % 0-10 [facility] Work Phone: Blood platelet mean volumeon 02-15-2022 Platelet mean volume (Bld) [Entitic vol] 7.9 fL 6.2-12.0 [facility] Work Phone: Determination of erythrocyte mean corpuscular volume (MCV)on 02-15-2022 MCV (RBC) [Entitic vol] 100.6 fL 81-99 [facility] Work Phone: Hematocrit Auto (Bld) [Volum e fraction]on 02-15-2022 Hematocrit (Bld) [Volume fraction] 34.3 % 37-47 [facility] Work Phone: Laboratory - Chemistry and C hemistry - challengeon 02-15-2022 ALP [Catalytic activity/Vol] 56 U/L 45-117 [facility] Work Phone: ALT [Catalytic activity/Vol] 16 U/L 13-56 [facility] Work Phone: CO2 [Moles/Vol] 25.0 mmol/L 21.0-32.0 [facility] Work Phone: Globulin (S) [Mass/Vol] 3.4 g/dL 2.2-4.2 [facility] Work Phone: Urea nitrogen/Creatinine [Mass ratio] 17.2 mg/mg 10-20 [facility] Work Phone: Laboratory - Hematology and Cell countson 02-15-2022 Erythrocyte distribution width (RBC) [Entitic vol] 57.1 fL 35.1-43.9 [facility] Work Phone: Erythrocyte distribution width (RBC) [Ratio] 15.2 % 11.6-14.6 [facility] Work Phone: Immature granulocytes/100 WBC (Bld) 0.300 % 0.0-0.9 [facility] Work Phone: Comment on above: IG% - Immature Granu locytes (promyelocytes, myelocytes and metamyelocytes) > 1% indicates that a LEFT SHIFT is Present. MCH (RBC) [Entitic mass] 31.4 pg 27.0-32.0 [facility] Work Phone: Nucleated RBC/100 WBC (Bld) [Ratio] 0 % 0-5 [facility] Work Phone: MCHC Auto (RBC) [Mass/Vol]on 02-15-2022 MCHC (RBC) [Mass/Vol] 31.2 g/dL 32-36 [facility] Work Phone: No Panel Informationon 02-15 Estimated Creatinine Clearance Calc 101.30 ml/min [facility] Work Phone: Estimated GFR (MDRD) Amer 116 mL/min >60 [facility] Work Phone: Comment on above: GFR Calc Estimated GFR (MDRD) Non-Af Amer 96 mL/min >60 [facility] Work Phone: Comment on above: Non- GFR Calc Platelets bldon 02-15-2022 Platelets (Bld) [#/Vol] 207 10*3/uL 150-450 [facility] Work Phone: Serum or plasma albumin charli urement (mass/volume)on 02-15-2022 Albumin [Mass/Vol] 3.5 g/dL 3.2-5.0 [facility] Work Phone: Serum or plasma albumin/glob ulin mass ratioon 02-15-2022 Albumin/Globulin [Mass ratio] 1.0 {ratio} 0.9-2.4 [facility] Work Phone: Serum or plasma calcium charli urement (mass/volume)on 02-15-2022 Calcium [Mass/Vol] 9.1 mg/dL 8.5-10.1 [facility] Work Phone: Serum or plasma creatinine m easurement (mass/volume)on 02-15-2022 Creatinine [Mass/Vol] 0.70 mg/dL 0.55-1.02 [facility] Work Phone: Comment on above: The validity of the calculated GFR & GFRAA in patients over 70 years has not been determined. Clinical correlation is essential. Serum or plasma urea nitroge n measurement (mass/volume)on 02-15-2022 Urea nitrogen [Mass/Vol] 12 mg/dL 7-18 [facility] Work Phone: Thin prep Papanicolaou smear with manual screeningon 02-15-2022 Thin prep Papanicolaou smear with manual screening 13 U/L 15-37 [facility] Work Phone: Thin prep Papanicolaou smear with manual screening 5 5-15 [facility] Work Phone: Absolute lymphocyte counton 12-28-2021 Lymphocytes Auto (Unsp spec) [#/Vol] 1.13 10*3/uL 0.83-4.51 [facility] Work Phone: Basophil percentageon 2021 Basophils/100 WBC (Bld) 0.4 % 0-1 [facility] Work Phone: [phone] Bilirubin [Mass/Vol] 0.30 mg/dL 0.20-1.00 [facility] Work Phone: Comment on above: For patients on eltr ombopag therapy, use of Dimension [place] TBIL is not recommended. Chloride [Moles/Vol] 108 mmol/L 98-107 [facility] Work Phone: Eosinophils/100 WBC (Bld) 1.1 % 0-5 [facility] Work Phone: Glucose [Mass/Vol] 99 mg/dL 74-106 [facility] Work Phone: Neutrophils (Bld) [#/Vol] 1.2 10*3/uL 2.0-7.7 [facility] Work Phone: Neutrophils/100 WBC (Bld) 40.8 % 47-70 [facility] Work Phone: Potassium [Moles/Vol] 3.7 mmol/L 3.5-5.1 [facility] Work Phone: Protein [Mass/Vol] 7.1 g/dL 6.4-8.2 [facility] Work Phone: [phone] Sodium [Moles/Vol] 139 mmol/L 136-145 [facility] Work Phone: WBC (Bld) [#/Vol] 2.8 10*3/uL 4.4-11.0 [facility] Work Phone: Blood erythrocytes count (nu mber/volume)on 12-28-2021 RBC (Bld) [#/Vol] 3.04 10*6/uL 4.2-5.4 [facility] Work Phone: Blood hemoglobin measurement (mass/volume)on 12-28-2021 Hemoglobin (Bld) [Mass/Vol] 9.3 g/dL 12.0-15.0 [facility] Work Phone: Blood lymphocytes/100 leukoc yteson 12-28-2021 Lymphocytes/100 WBC (Bld) 40.2 % 19-41 [facility] Work Phone: Blood monocytes/100 leukocyt eson 12-28-2021 Monocytes/100 WBC (Bld) 17.1 % 0-10 [facility] Work Phone: Blood platelet mean volumeon 12-28-2021 Platelet mean volume (Bld) [Entitic vol] 8.1 fL 6.2-12.0 [facility] Work Phone: Determination of erythrocyte mean corpuscular volume (MCV)on 12-28-2021 MCV (RBC) [Entitic vol] 94.4 fL 81-99 [facility] Work Phone: Hematocrit Auto (Bld) [Volum e fraction]on 12-28-2021 Hematocrit (Bld) [Volume fraction] 28.7 % 37-47 [facility] Work Phone: Iron measurement (mass/mass) on 12-28-2021 Iron (Unsp spec) [Mass/Mass] 89 ug/dL 50-170 [facility] Laboratory - Chemistry and C hemistry - challengeon 12-28-2021 ALP [Catalytic activity/Vol] 63 U/L 45-117 [facility] Work Phone: ALT [Catalytic activity/Vol] 22 U/L 13-56 [facility] Work Phone: CO2 [Moles/Vol] 27.0 mmol/L 21.0-32.0 [facility] Work Phone: Globulin (S) [Mass/Vol] 3.9 g/dL 2.2-4.2 [facility] Work Phone: Urea nitrogen/Creatinine [Mass ratio] 15.7 mg/mg 10-20 [facility] Work Phone: Laboratory - Hematology and Cell countson 12-28-2021 Erythrocyte distribution width (RBC) [Entitic vol] 53.5 fL 35.1-43.9 [facility] Work Phone: Erythrocyte distribution width (RBC) [Ratio] 17.3 % 11.6-14.6 [facility] Work Phone: Immature granulocytes/100 WBC (Bld) 0.400 % 0.0-0.9 [facility] Work Phone: Comment on above: IG% - Immature Granu locytes (promyelocytes, myelocytes and metamyelocytes) > 1% indicates that a LEFT SHIFT is Present. MCH (RBC) [Entitic mass] 30.6 pg 27.0-32.0 [facility] Work Phone: Nucleated RBC/100 WBC (Bld) [Ratio] 0.7 % 0-5 [facility] Work Phone: MCHC Auto (RBC) [Mass/Vol]on 12-28-2021 MCHC (RBC) [Mass/Vol] 32.4 g/dL 32-36 [facility] Work Phone: No Panel Informationon 12-28 Estimated Creatinine Clearance Calc 110.80 ml/min [facility] Work Phone: Estimated GFR (MDRD) Amer 129 mL/min >60 [facility] Work Phone: Comment on above: GFR Calc Estimated GFR (MDRD) Non-Af Amer 107 mL/min >60 [facility] Work Phone: Comment on above: Non- GFR Calc Total Iron Binding Capacity 282 ug/dL 250-450 [facility] Platelets bldon 12-28-2021 Platelets (Bld) [#/Vol] 213 10*3/uL 150-450 [facility] Work Phone: Serum or plasma albumin charli urement (mass/volume)on 12-28-2021 Albumin [Mass/Vol] 3.2 g/dL 3.2-5.0 [facility] Work Phone: Serum or plasma albumin/glob ulin mass ratioon 12-28-2021 Albumin/Globulin [Mass ratio] 0.8 {ratio} 0.9-2.4 [facility] Work Phone: Serum or plasma calcium charli urement (mass/volume)on 12-28-2021 Calcium [Mass/Vol] 9.0 mg/dL 8.5-10.1 [facility] Work Phone: Serum or plasma creatinine m easurement (mass/volume)on 12-28-2021 Creatinine [Mass/Vol] 0.64 mg/dL 0.55-1.02 [facility] Work Phone: Comment on above: The validity of the calculated GFR & GFRAA in patients over 70 years has not been determined. Clinical correlation is essential. Serum or plasma ferritin nirav surement (mass/volume)on 12-28-2021 Ferritin [Mass/Vol] 505 ng/mL 8-252 [facility] Serum or plasma iron saturat ion measurement (mass fraction)on 12-28-2021 Iron saturation [Mass fraction] 31.6 % 15.0-55.0 [facility] Serum or plasma urea nitroge n measurement (mass/volume)on 12-28-2021 Urea nitrogen [Mass/Vol] 10 mg/dL 7-18 [facility] Work Phone: Thin prep Papanicolaou smear with manual screeningon 12-28-2021 Thin prep Papanicolaou smear with manual screening 13 U/L 15-37 [facility] Work Phone: Thin prep Papanicolaou smear with manual screening 4 5-15 [facility] Work Phone: Blood manual differential co mment interpretation (narrative result)on 12-21-2021 Manual differential comment Carlos (Bld) [Interp] See comment [facility] Comment on above: LYMPHOPENIA NOTED Blood platelet adequacy dete ction by light microscopyon 12-21-2021 Platelets LM Ql (Bld) SLT DEC ADEQ [facility] RBC morphologyon 12-21-2021 RBC morphology finding Nom (Bld) NORM C+C NORMAL NORM C&C [facility] Review by pathologiston 11-25 Pathologist review Carlos (Unsp spec) [Interp] Reviewed [facility] Comment on above: Previous reported re sult: Shanta cintron Edited by: KEIRA on 12/22/21:1423Pancytopenia.Normocytic anemia.Leukopenia and Neutropenia.ThrombocytopeniaAs per EMR, 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 12/22/21 AMENDED REPORT 12/22/[id number] PATH REV previously reported as: Shanta [place] Basophil percentageon 2021 Basophil percentage 10-25 SEEN /hpf 0-5 [facility] Bilirubin Test strip Ql (U)o n 12-15-2021 Bilirubin Ql (U) 1 mg/dL Negative [facility] Comment on above: COLOR OF URINE MAY A FFECT DIPSTICK RESULTS. Calcium oxalate crystals det ection in urine sediment by light microscopyon 12-15-2021 Calcium oxalate crystals LM Ql (Urine sed) 1+ /hpf [facility] Culture, urineon 12-15-2021 Bacteria identified Cx Nom (U) Streptococcus agalactiae (B) [facility] Bacteria identified Cx Nom (U) Mixed Gram Pos & Gram Neg Org [facility] Ketones Test strip Ql (U)on 12-15-2021 Ketones Ql (U) 50 mg/dl Negative [facility] Laboratory - Chemistry and C hemistry - challengeon 12-15-2021 Magnesium [Mass/Vol] 2.3 mg/dL 1.6-2.6 [facility] Mucus LM Ql (Urine sed)on Mucus Ql (Urine sed) 2+ /hpf [facility] Nitrite Test strip Ql (U)on 12-15-2021 Nitrite Ql (U) Positive Negative [facility] Protein Test strip Ql (U)on 12-15-2021 Protein Ql (U) 100 mg/dl Negative [facility] Squamous epithelial cells de tection in urine sediment by light microscopyon 12-15-2021 Epithelial cells.squamous LM Ql (Urine sed) 0-5 SEEN /hpf 5-10 [facility] Urine blood detectionon 11-25 RBC Ql (U) 250 /ul Negative [facility] RBC Ql (U) 25-50 SEEN /hpf 0-5 [facility] Urine clarityon 12-15-2021 Clarity (U) Sl. Cloudy Clear [facility] Urine color determinationon 12-15-2021 Color (U) Monae Yellow [facility] Urine glucose detectionon Glucose Ql (U) Normal mg/dl Normal [facility] Urine leukocyte esterase det ection by dipstickon 12-15-2021 Leukocyte esterase Test strip Ql (U) 100 /ul Negative [facility] Urine pHon 12-15-2021 pH (U) 6.0 [pH] 5.0 - 8.0 [facility] Urine sediment bacteria coun t by microscopy (number/high power field)on 12-15-2021 Bacteria LM.HPF (Urine sed) [#/Area] 1 /[HPF] None Seen [facility] Urine specific gravity measu rementon 12-15-2021 Specific gravity (U) [Rel density] 1.020 1.002-1.030 [facility] Urobilinogen Auto test strip Ql (U)on 12-15-2021 Urobilinogen Ql (U) 4 mg/dl Normal [facility] Basophil percentageon 2021 Basophil percentage 3.4 mg/dL 2.5-4.9 [facility] No Panel Informationon 11-[address] [facility] HIV 1 and HIV-2 antibody ass ay with HIV-1 p24 antigen detectionon 10-13-2021 HIV 1+2 Ab+HIV1 p24 Ag IA Ql Non-Reactive Nonreactive [facility] LABORATORYOrdered By: Norma Stewart on 08-21-2021 Albumin BCP dye [Mass/Vol] 3.7 G/dL Invalid Interpretation Code 3.5 - 5.0 G/dL AO ADM SS Albumin/Globulin [Mass ratio] 1.2 {ratio} Invalid Interpretation Code 1.1 - 2.5 ratio AO ADM SS ALP [Catalytic activity/Vol] 62 U/L Invalid Interpretation Code 40 - 135 U/L AO ADM SS ALT With P-5'-P [Catalytic activity/Vol] 18 U/L Invalid Interpretation Code 14 - 59 U/L AO ADM SS AST With P-5'-P [Catalytic activity/Vol] 11 U/L Invalid Interpretation Code 10 - 40 U/L AO ADM SS Basophil, Absolute 0.00 103/mcL Invalid Interpretation Code 0.00 - 0.19 10^3/mcL AO Auto Heme SS Basophils/100 WBC (Bld) 0.7 % Invalid Interpretation Code 0.0 - 2.5 % AO Auto Heme SS Bilirubin [Mass/Vol] 0.6 mg/dL Invalid Interpretation Code 0.2 - 1.0 mg/dL AO ADM SS Calcium [Mass/Vol] 9.2 mg/dL Invalid Interpretation Code 8.4 - 10.2 mg/dL AO ADM SS Chloride [Moles/Vol] 106 mmol/L Invalid Interpretation Code 98 - 107 mmol/L AO ADM SS CO2 [Moles/Vol] 28 mmol/L Invalid Interpretation Code 22 - 29 mmol/L AO ADM SS Creatinine [Mass/Vol] 0.74 mg/dL Invalid Interpretation Code 0.55 - 1.02 mg/dL AO ADM SS Electrolyte Balance 8.0 mEq/L Invalid Interpretation Code AO ADM SS Eosinophil, Absolute 0.10 103/mcL Invalid Interpretation Code 0.00 - 0.40 10^3/mcL AO Auto Heme SS Eosinophils/100 WBC (Bld) 1.1 % Invalid Interpretation Code 0.0 - 7.0 % AO Auto Heme SS Erythrocyte distribution width (RBC) [Ratio] 13.5 % Invalid Interpretation Code 11.5 - 14.5 % AO Auto Heme SS Globulin 3.2 G/dL Invalid Interpretation Code AO ADM SS Glucose [Mass/Vol] 97 mg/dL Invalid Interpretation Code 70 - 105 mg/dL AO ADM SS Hematocrit (Bld) [Volume fraction] 38.6 % Invalid Interpretation Code 37.0 - 47.0 % AO Auto Heme SS Hemoglobin (Bld) [Mass/Vol] 13.0 G/dL Invalid Interpretation Code 12.0 - 16.0 G/dL AO Auto Heme SS Lymphocyte, Absolute 2.90 103/mcL Invalid Interpretation Code 0.77 - 3.85 10^3/mcL AO Auto Heme SS Lymphocytes/100 WBC (Bld) 45.6 % Invalid Interpretation Code 10.0 - 50.0 % AO Auto Heme SS MCH (RBC) [Entitic mass] 30.5 pg Invalid Interpretation Code 27.0 - 31.2 pg AO Auto Heme SS MCHC (RBC) [Mass/Vol] 33.6 G/dL Invalid Interpretation Code 33.0 - 37.0 G/dL AO Auto Heme SS MCV (RBC) [Entitic vol] 90.6 fL Invalid Interpretation Code 80.0 - 94.0 fL AO Auto Heme SS Monocyte, Absolute 0.30 103/mcL Invalid Interpretation Code 0.15 - 1.00 10^3/mcL AO Auto Heme SS Monocytes/100 WBC (Bld) 4.6 % Invalid Interpretation Code 1.7 - 13.0 % AO Auto Heme SS Neutrophil, Absolute 3.10 103/mcL Invalid Interpretation Code 2.85 - 6.16 10^3/mcL AO Auto Heme SS Neutrophils/100 WBC (Bld) 48.0 % Invalid Interpretation Code 37.0 - 80.0 % AO Auto Heme SS Platelet mean volume (Bld) [Entitic vol] 7.2 fL Invalid Interpretation Code 7.4 - 10.4 fL AO Auto Heme SS Platelets (Bld) [#/Vol] 268 103/mcL Invalid Interpretation Code 130 - 400 10^3/mcL AO Auto Heme SS Potassium [Moles/Vol] 4.4 mmol/L Invalid Interpretation Code 3.5 - 5.1 mmol/L AO ADM SS Protein [Mass/Vol] 6.9 G/dL Invalid Interpretation Code 6.4 - 8.2 G/dL AO ADM SS RBC (Bld) [#/Vol] 4.26 106/mcL Invalid Interpretation Code 4.20 - 5.40 10^6/mcL AO Auto Heme SS Sodium [Moles/Vol] 142 mmol/L Invalid Interpretation Code 136 - 145 mmol/L AO ADM SS Urea nitrogen [Mass/Vol] 10 mg/dL Invalid Interpretation Code 7 - 18 mg/dL AO ADM SS Urea nitrogen/Creatinine [Mass ratio] 14 ratio Invalid Interpretation Code 7 - 27 ratio AO ADM SS WBC (Bld) [#/Vol] 6.40 103/mcL Invalid Interpretation Code 4.60 - 10.80 10^3/mcL AO Auto Heme SS LABORATORYOrdered By: SYSTEM SYSTEM on 08-21-2021 GFR 102 ml/min/1.73sqm Invalid Interpretation Code AO Chemistry S GFR Non- 84 ml/min/1.73sqm Invalid Interpretation Code AO Chemistry S CT ABDOMEN/PELVIS W/CONTRAST on 03-31-2017 CT ABDOMEN/PELVIS W/CONTRAST ORIGINALCT ABDOMEN/PELVIS W/CONTRAST CLINICAL STATEMENT: LUQ PAIN COMPARISON: 05/22/2007 FINDINGS: This exam was performed according to our departmental dose-optimization program which includes automated exposure control, adjustment of the mA and/or kVp according to patient size and/or use of iterative reconstruction technique where applicable. The heart is normal in size. The lung bases are clear. No suspicious findings seen of the liver. The pancreas, adrenal glands and spleen appear unremarkable. A punctate nonobstructing left renal calculus seen on image 21. There are no renal lesions identified. No filling defects seen in the bladder. There is a cyst in the right ovary on image 65 measuring 3 cm. Free fluid noted in the pelvis. Hysterectomy changes suspected. No inflammatory changes seen of the colon or the small bowel There is no lymphadenopathy. Degenerative changes seen in the spine. Mild sclerosis seen of the right sacroiliac joint. No destructive osseous lesion visualized. IMPRESSION: 1. A 3 cm simple. Right ovarian cyst with free fluid in the pelvis. No follow-up is required per the criteria below.2. No inflammatory process of the bowel.3. Nonobstructing left renal calculus. Other incidental findings, as above. Recommendations for simple cyst (1,2) Pre-menopause (3) (< 50 yrs if LMP unknown): <5 cm: No f/u necessary >5cm - <10 cm: US f/u 6-12 weeks >10 cm: Prompt US Early post-menopause (<5 yrs from LMP; > 50 yrs and < 55 yrs if LMP unknown): <3cm: No f/u necessary(4) >3cm - <5cm: US f/u 6-12 months >5cm: Prompt US Late post-menopause (>5 yrs from LMP; > 55 yrs if LMP unknown): <3cm: No f/u necessary >3 cm: Prompt US 1. Recommendations based upon the 2013 ACR White Paper for the Management of Adnexal Incidental Findings, J Am Bushra Radiol 2013;10:675-681 2. Excludes normal/benign findings such as ovarian calcifications w/o associated non-calcified mass, corpus lutein cyst, previously characterized cyst and cyst with documented stability in size and appearance for 2 years. 3. Includes cysts with layering hemorrhage 4. If internal hemorrhage suspected in cyst, US f/u 6-12 weeks Interpreted By: Luis El MDPreliminary Report By: Luis El MDElectronically Signed By: Luis El MD Dictated Date: 03/31/2017 1:09:12 PM Prelim Date: 03/31/2017 1:09:12 PM Sign Date: 03/31/2017 1:16:03 PM Normal [facility] Culture, urine Bacteria identified Cx Nom (U) Streptococcus agalactiae (B) [facility] Work Phone: Bacteria identified Cx Nom (U) Mixed Gram Pos & Gram Neg Org [facility] Work Phone: Vital Signs Date Time Vital Sign Value Performing Clinician Facility 05-16-2023 13:45-0400 Heart rate 84 /min Jose Kline MD Work Phone: [facility] 05-16-2023 13:45-0400 Respiratory rate 35 /min Jose Kline MD Work Phone: [facility] 05-16-2023 13:44-0400 SaO2% (BldA) [Mass fraction] 95 % Jose Kline MD Work Phone: [facility] 05-16-2023 13:31-0400 Diastolic blood pressure 66 mm[Hg] Jose Kline MD Work Phone: [facility] 05-16-2023 13:31-0400 Systolic blood pressure 106 mm[Hg] Jose Kline MD Work Phone: [facility] 05-16-2023 13:29-0400 Body temperature 97.81 [degF] Jose Kline MD Work Phone: [facility] 05-16-2023 11:56-0400 Body height 171.5 cm Jose Kline MD Work Phone: [facility] 05-11-2023 16:01-0400 Body height 172.72 cm [employer] Jose Baltes [employer] Work Phone: [facility] 05-11-2023 15:59-0400 Body mass index (BMI) [Ratio] 25.2 kg/m2 [employer] Jose Baltes [employer] Work Phone: [facility] 05-11-2023 15:59-0400 Body temperature 97.8 [degF] [employer]-C Jose Baltes [employer]ER Work Phone: [facility] 05-11-2023 15:59-0400 Body weight 75.35 kg [employer]-C Joes Baltes [employer]ER Work Phone: [facility] 05-11-2023 15:59-0400 Diastolic blood pressure 83 mm[Hg] [employer]-C Jose Baltes [employer]ER Work Phone: [facility] 05-11-2023 15:59-0400 Heart rate 78 /min [employer] Jose Baltes [employer] IN[employer]ER Work Phone: [facility] 05-11-2023 15:59-0400 Respiratory rate 16 /min [employer] Jose Baltes [employer]ER Work Phone: [facility] 05-11-2023 15:59-0400 SaO2% (BldA) [Mass fraction] 97 % [employer] Jose Baltes [employer]ER Work Phone: [facility] 05-11-2023 15:59-0400 Systolic blood pressure 122 mm[Hg] ZECHARIAH Lala NP Work Phone: [facility] 02-18-2023 10:52-0400 Body height 171.5 cm Jose Kline MD Work Phone: [facility] 02-18-2023 10:52-0400 Body mass index (BMI) [Ratio] 25.77 kg/m2 Jose Kline MD Work Phone: [facility] 02-18-2023 10:52-0400 Body weight 75.75 kg Jose Kline MD Work Phone: [facility] 02-18-2023 10:52-0400 Diastolic blood pressure 86 mm[Hg] Jose Kline MD Work Phone: [facility] 02-18-2023 10:52-0400 Heart rate 78 /min Jose Kline MD Work Phone: [facility] 02-18-2023 10:52-0400 Systolic blood pressure 125 mm[Hg] Jose Kline MD Work Phone: [facility] 12-04-2022 08:58-0500 Diastolic Blood Pressure Non-Invasive [address] [facility] 12-04-2022 08:58-0500 Heart rate 69 /min ROBERT CULVER MD [facility] 12-04-2022 08:58-0500 Respiratory rate 16 /min ROBERT CULVER MD [facility] 12-04-2022 08:58-0500 Systolic Blood Pressure Non-Invasive 110 [address] [facility] 12-04-2022 08:09-0500 Diastolic Blood Pressure Non-Invasive 89 [address] [facility] 12-04-2022 08:09-0500 Heart rate 68 /min ROBERT CULVER MD [facility] 12-04-2022 08:09-0500 Respiratory rate 12 /min ROBERT CULVER MD [facility] 12-04-2022 08:09-0500 Systolic Blood Pressure Non-Invasive 136 [address] [facility] 12-04-2022 07:12-0500 Body temperature 98.06 [degF] ROBERT CULVER MD [facility] 12-04-2022 07:12-0500 Body weight 75.7 kg ROBERT CULVER MD [facility] 12-04-2022 07:12-0500 Diastolic Blood Pressure Non-Invasive 101 [address] [facility] 12-04-2022 07:12-0500 Heart rate 94 /min ROBERT CULVER MD [facility] 12-04-2022 07:12-0500 Respiratory rate 16 /min ROBERT CULVER MD [facility] 12-04-2022 07:12-0500 Systolic Blood Pressure Non-Invasive 141 [address] [facility] 08-26-2022 12:58-0500 Body height 172.7 cm Jose Kline MD Work Phone: [facility] 08-26-2022 12:58-0500 Body mass index (BMI) [Ratio] 25.41 kg/m2 Jose Kline MD Work Phone: [facility] 08-26-2022 12:58-0500 Body weight 75.8 kg Jose Kline MD Work Phone: [facility] 08-26-2022 12:58-0500 Diastolic blood pressure 81 mm[Hg] Jose Kline MD Work Phone: [facility] 08-26-2022 12:58-0500 Heart rate 90 /min Jose Kline MD Work Phone: [facility] 08-26-2022 12:58-0500 Systolic blood pressure 134 mm[Hg] Jose Kline MD Work Phone: [facility] 06-09-2022 13:28-0400 Body height 172.72 cm [employer] Jose Baltes [employer]ER Work Phone: [facility] Work Phone: 06-09-2022 13:22-0400 Body mass index (BMI) [Ratio] 25.6 kg/m2 [employer] Jose Baltes [employer] IN[employer]ALLER Work Phone: [facility] Work Phone: 06-09-2022 13:22-0400 Body temperature 97.2 [degF] [employer]-C Jose Baltes [employer] INSTALLER Work Phone: [facility] Work Phone: 06-09-2022 13:22-0400 Body weight 76.43 kg [employer]-C Jose Baltes [employer] INSTALLER Work Phone: [facility] Work Phone: 06-09-2022 13:22-0400 Diastolic blood pressure 86 mm[Hg] [employer]-C Jose Baltes [employer] INSTALLER Work Phone: [facility] Work Phone: 06-09-2022 13:22-0400 Heart rate 81 /min [employer]C Jose Baltes [employer] INST[employer]ER Work Phone: [facility] Work Phone: 06-09-2022 13:22-0400 Respiratory rate 16 /min [employer]-C Jose Baltes [employer] IN[employer]ALLER Work Phone: [facility] Work Phone: 06-09-2022 13:22-0400 SaO2% (BldA) [Mass fraction] 99 % [employer] Jose Lala [employer]ALLER Work Phone: [facility] Work Phone: 06-09-2022 13:22-0400 Systolic blood pressure 132 mm[Hg] [employer]-C Jose Lala [employer] IN[employer]ER Work Phone: [facility] Work Phone: 05-13-2022 11:12-0400 Body height 172.7 cm Jose Kline MD Work Phone: [facility] 05-13-2022 11:12-0400 Body mass index (BMI) [Ratio] 25.24 kg/m2 Jose Kline MD Work Phone: [facility] 05-13-2022 11:12-0400 Body weight 75.3 kg Jose Kline MD Work Phone: [facility] 05-13-2022 11:12-0400 Diastolic blood pressure 73 mm[Hg] Jose Kline MD Work Phone: [facility] 05-13-2022 11:12-0400 Heart rate 94 /min Jose Kline MD Work Phone: [facility] 05-13-2022 11:12-0400 Systolic blood pressure 118 mm[Hg] Jose Kline MD Work Phone: [facility] 03-22-2022 20:25-0400 Diastolic blood pressure 84 mm[Hg] [employer] INSTALLER-Jeanne Lala [employer]ALLER Work Phone: [facility] Work Phone: 03-22-2022 20:25-0400 Systolic blood pressure 141 mm[Hg] [employer]-C Jose Lala [employer]ER Work Phone: [facility] Work Phone: 03-22-2022 14:25-0400 Body height 172.72 cm [employer]-C Jose Baltes [employer] INSTALLER Work Phone: [facility] Work Phone: 03-22-2022 14:25-0400 Body mass index (BMI) [Ratio] 25.8 kg/m2 [employer]-C Jose Baltes [employer] INSTALLER Work Phone: [facility] Work Phone: 03-22-2022 14:25-0400 Body temperature 99.2 [degF] [employer]-C Jose Baltes [employer] INSTALLER Work Phone: [facility] Work Phone: 03-22-2022 14:25-0400 Body weight 77.11 kg [employer] IN[employer]ER-C Jose Baltes [employer] INSTALLER Work Phone: [facility] Work Phone: 03-22-2022 14:25-0400 Heart rate 105 /min [employer]-C Jose Baltes [employer] INSTALLER Work Phone: [facility] Work Phone: 03-22-2022 14:25-0400 Respiratory rate 16 /min [employer]-C Jose Baltes [employer] INSTALLER Work Phone: [facility] Work Phone: 03-22-2022 14:25-0400 SaO2% (BldA) [Mass fraction] 99 % [employer]-C Jose Baltes [employer] INSTALLER Work Phone: [facility] Work Phone: 02-15-2022 15:57-0400 Body mass index (BMI) [Ratio] 26 kg/m2 [employer]-C Jose Baltes [employer] INSTALLER Work Phone: [facility] Work Phone: 02-15-2022 15:57-0400 Body temperature 980 [degF] [employer] IN[employer]ER-C Jose Baltes [employer] INSTALLER Work Phone: [facility] Work Phone: 02-15-2022 15:57-0400 Body weight 77.62 kg [employer]ER-C Jose Baltes [employer] INSTALLER Work Phone: [facility] Work Phone: 02-15-2022 15:57-0400 Diastolic blood pressure 82 mm[Hg] [employer]ER-C Jose Baltes [employer] INSTALLER Work Phone: [facility] Work Phone: 02-15-2022 15:57-0400 Heart rate 86 /min [employer]-C Jose Baltes [employer] INSTALLER Work Phone: [facility] Work Phone: 02-15-2022 15:57-0400 Respiratory rate 15 /min [employer] IN[employer]ER-C Jose Baltes [employer] INSTALLER Work Phone: [facility] Work Phone: 02-15-2022 15:57-0400 Systolic blood pressure 144 mm[Hg] [employer] IN[employer]ER-C 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 02-05-2022 14:51-0400 Diastolic blood pressure 99 mm[Hg] ROBERT CULVER MD [facility] 02-05-2022 14:51-0400 Heart rate 108 /min ROBERT CULVER MD [facility] 02-05-2022 14:51-0400 Respiratory rate 18 /min ROBERT CULVER MD [facility] 02-05-2022 14:51-0400 Systolic blood pressure 145 mm[Hg] ROBERT CULVER MD [facility] 01-12-2022 12:59-0400 Body temperature 97.5 [degF] [employer]ER-C Jose Baltes [employer] INSTALLER Work Phone: [facility] Work Phone: 01-12-2022 12:59-0400 Body weight 74.61 kg [employer] INST[employer]ER-C Jose Baltes [employer] INSTALLER Work Phone: [facility] Work Phone: 01-12-2022 12:59-0400 Diastolic blood pressure 66 mm[Hg] [employer] IN[employer]ER-C Jose Baltes [employer] INSTALLER Work Phone: [facility] Work Phone: 01-12-2022 12:59-0400 Heart rate 102 /min [employer]-C Jose Baltes [employer] INSTALLER Work Phone: [facility] Work Phone: 01-12-2022 12:59-0400 Respiratory rate 14 /min [employer]-C Jose Baltes [employer] IN[employer]ALLER Work Phone: [facility] Work Phone: 01-12-2022 12:59-0400 SaO2% (BldA) [Mass fraction] 100 % [employer]-C Jose Baltes [employer] INSTALLER Work Phone: [facility] Work Phone: 01-12-2022 12:59-0400 Systolic blood pressure 127 mm[Hg] [employer] IN[employer]ER-C Jose Baltes [employer] IN[employer]ALLER Work Phone: [facility] Work Phone: 01-12-2022 12:59-0400 Body temperature 97.5 [degF] Dr. Stone Acosta Work Phone: [facility] Work Phone: 01-12-2022 12:59-0400 Body weight 74.[address] Stone Acosta Work Phone: [facility] Work Phone: 01-12-2022 12:59-0400 Diastolic blood pressure 66 mm[Hg] Dr. Stone Acosta Work Phone: [facility] Work Phone: 01-12-2022 12:59-0400 Heart rate 102 /min Dr. Stone Acosta Work Phone: [facility] Work Phone: 01-12-2022 12:59-0400 Respiratory rate 14 /min Dr. Stone Acosta Work Phone: [facility] Work Phone: 01-12-2022 12:59-0400 SaO2% (BldA) [Mass fraction] 100 % Dr. Stone Acosta Work Phone: [facility] Work Phone: 01-12-2022 12:59-0400 Systolic blood pressure 127 mm[Hg] Dr. Stone Acosta Work Phone: [facility] Work Phone: 01-07-2022 09:40-0400 Body height 172.7 cm Jose Kline MD Work Phone: [facility] 01-07-2022 09:40-0400 Body mass index (BMI) [Ratio] 24.94 kg/m2 Jose Kline MD Work Phone: [facility] 01-07-2022 09:40-0400 Body weight 74.39 kg Jose Kline MD Work Phone: [facility] 01-07-2022 09:40-0400 Diastolic blood pressure 78 mm[Hg] Jose Kline MD Work Phone: [facility] 01-07-2022 09:40-0400 Heart rate 98 /min Jose Kline MD Work Phone: [facility] 01-07-2022 09:40-0400 Systolic blood pressure 110 mm[Hg] Jose Kline MD Work Phone: [facility] 12-28-2021 15:26-0400 Body mass index (BMI) [Ratio] 25.1 kg/m2 [employer]-C Jose Baltes [employer] IN[employer]ALLER Work Phone: [facility] Work Phone: 12-28-2021 15:26-0400 Body temperature 98.4 [degF] [employer] IN[employer]ER-C Jose Baltes [employer] IN[employer]ALLER Work Phone: [facility] Work Phone: 12-28-2021 15:26-0400 Body weight 74.89 kg [employer] INST[employer]ER-C Jose Baltes [employer] INSTALLER Work Phone: [facility] Work Phone: 12-28-2021 15:26-0400 Diastolic blood pressure 66 mm[Hg] [employer] IN[employer]ER-C Jose Baltes [employer] INSTALLER Work Phone: [facility] Work Phone: 12-28-2021 15:26-0400 Heart rate 92 /min [employer]ER-C Jose Baltes [employer] INSTALLER Work Phone: [facility] Work Phone: 12-28-2021 15:26-0400 Respiratory rate 16 /min [employer]ER-C Jose Baltes [employer] INSTALLER Work Phone: [facility] Work Phone: 12-28-2021 15:26-0400 SaO2% (BldA) [Mass fraction] 99 % [employer]-C Jose Baltes [employer]OR INSTALLER Work Phone: [facility] Work Phone: 12-28-2021 15:26-0400 Systolic blood pressure 103 mm[Hg] [employer] IN[employer]ER-C Jose Baltes [employer] INSTALLER Work Phone: [facility] Work Phone: 12-28-2021 15:26-0400 Body height 172.[address] Stone Acosta Work Phone: [facility] Work Phone: 12-28-2021 15:26-0400 Body mass index (BMI) [Ratio] 25.1 kg/m2 Dr. Stone Acosta Work Phone: [facility] Work Phone: 12-28-2021 15:26-0400 Body temperature 98.4 [degF] Dr. Stone Acosta Work Phone: [facility] Work Phone: 12-28-2021 15:26-0400 Body weight 74.[address] Stone Acosta Work Phone: [facility] Work Phone: 12-28-2021 15:26-0400 Diastolic blood pressure 66 mm[Hg] Dr. Stone Acosta Work Phone: [facility] Work Phone: 12-28-2021 15:26-0400 Heart rate 92 /min Dr. Stone Acosta Work Phone: [facility] Work Phone: 12-28-2021 15:26-0400 Respiratory rate 16 /min Dr. Stone Acosta Work Phone: [facility] Work Phone: 12-28-2021 15:26-0400 SaO2% (BldA) [Mass fraction] 99 % Dr. Stone Acosta Work Phone: [facility] Work Phone: 12-28-2021 15:26-0400 Systolic blood pressure 103 mm[Hg] Dr. Stone Acosta Work Phone: [facility] Work Phone: 12-25-2021 09:01-0400 Body temperature 98.3 [degF] ZECHARIAH Lala [employer] Work Phone: [facility] Work Phone: 12-25-2021 09:01-0400 Body weight 75.06 kg [employer] Jose Baltes [employer] Work Phone: [facility] Work Phone: 12-25-2021 09:01-0400 Diastolic blood pressure 65 mm[Hg] [employer] Jose Baltes [employer]ER Work Phone: [facility] Work Phone: 12-25-2021 09:01-0400 Heart rate 90 /min [employer] Jose Baltes [employer]ER Work Phone: [facility] Work Phone: 12-25-2021 09:01-0400 Respiratory rate 14 /min [employer] Jose Baltes [employer]ER Work Phone: [facility] Work Phone: 12-25-2021 09:01-0400 SaO2% (BldA) [Mass fraction] 99 % [employer] Jose Baltes [employer]ER Work Phone: [facility] Work Phone: 12-25-2021 09:01-0400 Systolic blood pressure 111 mm[Hg] [employer] Jose Baltes [employer]ER Work Phone: [facility] Work Phone: 12-25-2021 09:01-0400 Body temperature 98.3 [degF] Dr. Stone Acosta Work Phone: [facility] Work Phone: 12-25-2021 09:01-0400 Body weight 75.[address] Stone Acosta Work Phone: [facility] Work Phone: 12-25-2021 09:01-0400 Diastolic blood pressure 65 mm[Hg] Dr. Stone Acosta Work Phone: [facility] Work Phone: 12-25-2021 09:01-0400 Heart rate 90 /min Dr. Stone Acosta Work Phone: [facility] Work Phone: 12-25-2021 09:01-0400 Respiratory rate 14 /min Dr. Stone Acosta Work Phone: [facility] Work Phone: 12-25-2021 09:01-0400 SaO2% (BldA) [Mass fraction] 99 % Dr. Stone Acosta Work Phone: [facility] Work Phone: 12-25-2021 09:01-0400 Systolic blood pressure 111 mm[Hg] Dr. Stone Acosta Work Phone: [facility] Work Phone: 12-21-2021 13:09-0400 Body mass index (BMI) [Ratio] 24.9 kg/m2 [employer] Jose Baltes [employer]STALLER Work Phone: [facility] Work Phone: 12-21-2021 13:09-0400 Body temperature 98.7 [degF] [employer] Jose Baltes [employer]ER Work Phone: [facility] Work Phone: 12-21-2021 13:09-0400 Body weight 74.44 kg [employer] Ojse Baltes [employer]ER Work Phone: [facility] Work Phone: 12-21-2021 13:09-0400 Diastolic blood pressure 73 mm[Hg] [employer] Jose Baltes [employer]ER Work Phone: [facility] Work Phone: 12-21-2021 13:09-0400 Heart rate 100 /min [employer] Jose Baltes [employer] IN[employer]ALLER Work Phone: [facility] Work Phone: 12-21-2021 13:09-0400 Respiratory rate 14 /min [employer] Jose Baltes [employer] INSTALLER Work Phone: [facility] Work Phone: 12-21-2021 13:09-0400 SaO2% (BldA) [Mass fraction] 97 % [employer] Jose Lala [employer] INSTALLER Work Phone: [facility] Work Phone: 12-21-2021 13:09-0400 Systolic blood pressure 111 mm[Hg] [employer] Jose Lala [employer]ALLER Work Phone: [facility] Work Phone: 12-21-2021 13:09-0400 Body mass index (BMI) [Ratio] 24.9 kg/m2 Dr. Stone Acosta Work Phone: [facility] Work Phone: 12-21-2021 13:09-0400 Body temperature 98.7 [degF] Dr. Stone Acosta Work Phone: [facility] Work Phone: 12-21-2021 13:09-0400 Body weight 74.[address] Stone Acosta Work Phone: [facility] Work Phone: 12-21-2021 13:09-0400 Diastolic blood pressure 73 mm[Hg] Dr. Stone Acosta Work Phone: [facility] Work Phone: 12-21-2021 13:09-0400 Heart rate 100 /min Dr. Stone Acosta Work Phone: [facility] Work Phone: 12-21-2021 13:09-0400 Respiratory rate 14 /min Dr. Stone Acosta Work Phone: [facility] Work Phone: 12-21-2021 13:09-0400 SaO2% (BldA) [Mass fraction] 97 % Dr. Stone Acosta Work Phone: [facility] Work Phone: 12-21-2021 13:09-0400 Systolic blood pressure 111 mm[Hg] Dr. Stone Acosta Work Phone: [facility] Work Phone: 12-15-2021 17:21-0400 Diastolic blood pressure 68 mm[Hg] Dr. Stone Acosta Work Phone: [facility] 12-15-2021 17:21-0400 Heart rate 97 /min Dr. Stone Acosta Work Phone: [facility] 12-15-2021 17:21-0400 Respiratory rate 16 /min Dr. Stone Acosta Work Phone: [facility] 12-15-2021 17:21-0400 SaO2% (BldA) [Mass fraction] 98 % Dr. Stone Acosta Work Phone: [facility] 12-15-2021 17:21-0400 Systolic blood pressure 116 mm[Hg] Dr. Stone Acosta Work Phone: [facility] 12-15-2021 10:53-0400 Body mass index (BMI) [Ratio] 24.7 kg/m2 [employer] Jose Baltes [employer]ER Work Phone: [facility] Work Phone: 12-15-2021 10:53-0400 Body temperature 99.6 [degF] [employer] Jose Baltes [employer]ER Work Phone: [facility] Work Phone: 12-15-2021 10:53-0400 Body weight 73.65 kg [employer] Jose Baltes [employer] INSTALLER Work Phone: [facility] Work Phone: 12-15-2021 10:53-0400 Diastolic blood pressure 80 mm[Hg] [employer]C Jose Baltes [employer]ALLER Work Phone: [facility] Work Phone: 12-15-2021 10:53-0400 Heart rate 106 /min [employer] Jose Baltes [employer]ST[employer]ER Work Phone: [facility] Work Phone: 12-15-2021 10:53-0400 Respiratory rate 14 /min [employer] Jose Lala [employer] IN[employer]ALLER Work Phone: [facility] Work Phone: 12-15-2021 10:53-0400 SaO2% (BldA) [Mass fraction] 97 % [employer] Jose Wernertes [employer]STALLER Work Phone: [facility] Work Phone: 12-15-2021 10:53-0400 Systolic blood pressure 115 mm[Hg] [employer]C Jose Lala [employer]ALLER Work Phone: [facility] Work Phone: 12-15-2021 10:53-0400 Body mass index (BMI) [Ratio] 24.7 kg/m2 Dr. Stone Acosta Work Phone: [facility] Work Phone: 12-15-2021 10:53-0400 Body temperature 99.6 [degF] Dr. Stone Acosta Work Phone: [facility] Work Phone: 12-15-2021 10:53-0400 Body weight 73.[address] Stone Acosta Work Phone: [facility] Work Phone: 12-15-2021 10:53-0400 Diastolic blood pressure 80 mm[Hg] Dr. Stone Acosta Work Phone: [facility] Work Phone: 12-15-2021 10:53-0400 Heart rate 106 /min Dr. Stone Acosta Work Phone: [facility] Work Phone: 12-15-2021 10:53-0400 Respiratory rate 14 /min Dr. Stone Acosta Work Phone: [facility] Work Phone: 12-15-2021 10:53-0400 SaO2% (BldA) [Mass fraction] 97 % Dr. Stone Acosta Work Phone: [facility] Work Phone: 12-15-2021 10:53-0400 Systolic blood pressure 115 mm[Hg] Dr. Stone Acosta Work Phone: [facility] Work Phone: 12-11-2021 11:39-0400 Body temperature 98 [degF] Dr. Stone Acosta Work Phone: [facility] 12-11-2021 11:27-0400 Body weight 76.43 kg [employer] Jose Baltes [employer]ER Work Phone: [facility] Work Phone: 12-11-2021 11:27-0400 Body weight 76.[address] Stone Acosta Work Phone: [facility] Work Phone: 12-07-2021 08:07-0400 Body temperature 98 [degF] [employer] Jose Baltes [employer] INSTALLER Work Phone: [facility] Work Phone: 12-07-2021 08:07-0400 Body weight 73.48 kg [employer]-C Jose Baltes [employer] INSTALLER Work Phone: [facility] Work Phone: 12-07-2021 08:07-0400 Diastolic blood pressure 80 mm[Hg] [employer]-C Jose Baltes [employer]ALLER Work Phone: [facility] Work Phone: 12-07-2021 08:07-0400 Heart rate 100 /min [employer]C Jose Baltes [employer] INSTALLER Work Phone: [facility] Work Phone: 12-07-2021 08:07-0400 Respiratory rate 16 /min [employer]C Jose Baltes [employer]ER Work Phone: [facility] Work Phone: 12-07-2021 08:07-0400 SaO2% (BldA) [Mass fraction] 98 % [employer]C Jose Lala [employer] INSTALLER Work Phone: [facility] Work Phone: 12-07-2021 08:07-0400 Systolic blood pressure 126 mm[Hg] [employer]-C Jose Lala [employer] INSTALLER Work Phone: [facility] Work Phone: 12-07-2021 08:07-0400 Body temperature 98 [degF] Dr. Stone Acosta Work Phone: [facility] Work Phone: 12-07-2021 08:07-0400 Body weight 73.[address] Stone Acosta Work Phone: [facility] Work Phone: 12-07-2021 08:07-0400 Diastolic blood pressure 80 mm[Hg] Dr. Stone Acosta Work Phone: [facility] Work Phone: 12-07-2021 08:07-0400 Heart rate 100 /min Dr. Stone Acosta Work Phone: [facility] Work Phone: 12-07-2021 08:07-0400 Respiratory rate 16 /min Dr. Stone Acosta Work Phone: [facility] Work Phone: 12-07-2021 08:07-0400 SaO2% (BldA) [Mass fraction] 98 % Dr. Stone Acosta Work Phone: [facility] Work Phone: 12-07-2021 08:07-0400 Systolic blood pressure 126 mm[Hg] Dr. Stone Acosta Work Phone: [facility] Work Phone: 12-02-2021 09:36-0500 Body temperature 98.2 [degF] [employer]C Jose Lala [employer]ER Work Phone: [facility] Work Phone: 12-02-2021 09:36-0500 Body weight 78.13 kg [employer]-C Jose Baltes [employer]ER Work Phone: [facility] Work Phone: 12-02-2021 09:36-0500 Diastolic blood pressure 79 mm[Hg] [employer]-C Jose Baltes [employer]ER Work Phone: [facility] Work Phone: 12-02-2021 09:36-0500 Heart rate 82 /min [employer]C Jose Baltes [employer] IN[employer]ALLER Work Phone: [facility] Work Phone: 12-02-2021 09:36-0500 Respiratory rate 14 /min [employer] Jose Baltes [employer] IN[employer]ALLER Work Phone: [facility] Work Phone: 12-02-2021 09:36-0500 SaO2% (BldA) [Mass fraction] 100 % [employer]-C Jose Baltes [employer]ALLER Work Phone: [facility] Work Phone: 12-02-2021 09:36-0500 Systolic blood pressure 118 mm[Hg] [employer]-C Jose Baltes [employer]ER Work Phone: [facility] Work Phone: 12-02-2021 08:36-0500 Body temperature 98.2 [degF] Dr. Stone Acosta Work Phone: [facility] Work Phone: 12-02-2021 08:36-0500 Body weight 78.[address] Stone Acosta Work Phone: [facility] Work Phone: 12-02-2021 08:36-0500 Diastolic blood pressure 79 mm[Hg] Dr. Stone Acosta Work Phone: [facility] Work Phone: 12-02-2021 08:36-0500 Heart rate 82 /min Dr. Stone Acosta Work Phone: [facility] Work Phone: 12-02-2021 08:36-0500 Respiratory rate 14 /min Dr. Stone Acosta Work Phone: [facility] Work Phone: 12-02-2021 08:36-0500 SaO2% (BldA) [Mass fraction] 100 % Dr. Stone Acosta Work Phone: [facility] Work Phone: 12-02-2021 08:36-0500 Systolic blood pressure 118 mm[Hg] Dr. Stone Acosta Work Phone: [facility] Work Phone: 11-30-2021 09:16-0500 Body mass index (BMI) [Ratio] 25.4 kg/m2 [employer] Jose Baltes [employer]ER Work Phone: [facility] 11-30-2021 09:16-0500 Body weight 75.97 kg [employer]-C Jose Baltes [employer]ER Work Phone: [facility] Work Phone: 11-30-2021 08:55-0500 Body mass index (BMI) [Ratio] 25.4 kg/m2 [employer]-C Jose Baltes [employer]ER Work Phone: [facility] Work Phone: 11-30-2021 08:55-0500 Body temperature 98.7 [degF] [employer]-C Jose Baltes [employer]ER Work Phone: [facility] Work Phone: 11-30-2021 08:55-0500 Body weight 75.97 kg [employer]-C Jose Baltes [employer]ER Work Phone: [facility] Work Phone: 11-30-2021 08:55-0500 Diastolic blood pressure 73 mm[Hg] [employer]-C Jose Baltes [employer]ER Work Phone: [facility] Work Phone: 11-30-2021 08:55-0500 Heart rate 86 /min [employer] Jose Lala [employer] IN[employer]ALLER Work Phone: [facility] Work Phone: 11-30-2021 08:55-0500 Respiratory rate 16 /min [employer]-C Jose Lala [employer]ALLER Work Phone: [facility] Work Phone: 11-30-2021 08:55-0500 SaO2% (BldA) [Mass fraction] 97 % [employer]-C Jose Lala [employer]ALLER Work Phone: [facility] Work Phone: 11-30-2021 08:55-0500 Systolic blood pressure 114 mm[Hg] [employer]-C Jose Lala [employer] IN[employer]ALLER Work Phone: [facility] Work Phone: 11-30-2021 08:16-0500 Body mass index (BMI) [Ratio] 25.4 kg/m2 Dr. Stone Acosta Work Phone: [facility] Work Phone: 11-30-2021 08:16-0500 Body weight 75.[address] Stone Acosta Work Phone: [facility] Work Phone: 11-30-2021 07:55-0500 Body mass index (BMI) [Ratio] 25.4 kg/m2 Dr. Stone Acosta Work Phone: [facility] Work Phone: 11-30-2021 07:55-0500 Body temperature 98.7 [degF] Dr. Stone Acosta Work Phone: [facility] Work Phone: 11-30-2021 07:55-0500 Body weight 75.[address] Stone Acosta Work Phone: [facility] Work Phone: 11-30-2021 07:55-0500 Diastolic blood pressure 73 mm[Hg] Dr. Stone Acosta Work Phone: [facility] Work Phone: 11-30-2021 07:55-0500 Heart rate 86 /min Dr. Stone Acosta Work Phone: [facility] Work Phone: 11-30-2021 07:55-0500 Respiratory rate 16 /min Dr. Stone Acosta Work Phone: [facility] Work Phone: 11-30-2021 07:55-0500 SaO2% (BldA) [Mass fraction] 97 % Dr. Stone Acosta Work Phone: [facility] Work Phone: 11-30-2021 07:55-0500 Systolic blood pressure 114 mm[Hg] Dr. Stone Acosta Work Phone: [facility] Work Phone: 11-25-2021 09:02-0500 Body temperature 97.9 [degF] [employer]-C Jose Lala [employer] IN[employer]ALLER Work Phone: [facility] Work Phone: 11-25-2021 09:02-0500 Body weight 76.43 kg [employer]-C Jose Wernertes [employer]ER Work Phone: [facility] Work Phone: 11-25-2021 09:02-0500 Diastolic blood pressure 78 mm[Hg] [employer]-C Jose Wernertes [employer]ER Work Phone: [facility] Work Phone: 11-25-2021 09:02-0500 Heart rate 74 /min [employer]-C Jose Lala [employer] INSTALLER Work Phone: [facility] Work Phone: 11-25-2021 09:02-0500 Respiratory rate 14 /min [employer]-C Jose Lala [employer] IN[employer]ALLER Work Phone: [facility] Work Phone: 11-25-2021 09:02-0500 SaO2% (BldA) [Mass fraction] 100 % [employer]ER-C Jose Lala [employer] INSTALLER Work Phone: [facility] Work Phone: 11-25-2021 09:02-0500 Systolic blood pressure 110 mm[Hg] [employer]-C Jose Lala [employer] IN[employer]ALLER Work Phone: [facility] Work Phone: 11-25-2021 08:02-0500 Body temperature 97.9 [degF] Dr. Stone Acosta Work Phone: [facility] Work Phone: 11-25-2021 08:02-0500 Body weight 76.[address] Stone Acosta Work Phone: [facility] Work Phone: 11-25-2021 08:02-0500 Diastolic blood pressure 78 mm[Hg] Dr. Stone Acosta Work Phone: [facility] Work Phone: 11-25-2021 08:02-0500 Heart rate 74 /min Dr. Stone Acosta Work Phone: [facility] Work Phone: 11-25-2021 08:02-0500 Respiratory rate 14 /min Dr. Stone Acosta Work Phone: [facility] Work Phone: 11-25-2021 08:02-0500 SaO2% (BldA) [Mass fraction] 100 % Dr. Stone Acosta Work Phone: [facility] Work Phone: 11-25-2021 08:02-0500 Systolic blood pressure 110 mm[Hg] Dr. Stone Acosta Work Phone: [facility] Work Phone: 11-23-2021 07:59-0500 Body mass index (BMI) [Ratio] 25.8 kg/m2 [employer] Jose Baltes [employer]ER Work Phone: [facility] Work Phone: 11-23-2021 07:59-0500 Body temperature 97.9 [degF] [employer]-C Jose Baltes [employer]ER Work Phone: [facility] Work Phone: 11-23-2021 07:59-0500 Body weight 77.11 kg [employer]-C Jose Baltes [employer] IN[employer]ER Work Phone: [facility] Work Phone: 11-23-2021 07:59-0500 Diastolic blood pressure 81 mm[Hg] [employer]-C Jose Baltes [employer]ER Work Phone: [facility] Work Phone: 11-23-2021 07:59-0500 Heart rate 103 /min [employer]-C Jose Baltes [employer] IN[employer]ER Work Phone: [facility] Work Phone: 11-23-2021 07:59-0500 Respiratory rate 16 /min [employer] Jose Baltes [employer]ER Work Phone: [facility] Work Phone: 11-23-2021 07:59-0500 SaO2% (BldA) [Mass fraction] 99 % [employer] Jose Baltes [employer] IN[employer]ER Work Phone: [facility] Work Phone: 11-23-2021 07:59-0500 Systolic blood pressure 118 mm[Hg] [employer]-C Jose Baltes [employer]ER Work Phone: [facility] Work Phone: 11-23-2021 06:59-0500 Body mass index (BMI) [Ratio] 25.8 kg/m2 Dr. Stone Acosta Work Phone: [facility] Work Phone: 11-23-2021 06:59-0500 Body temperature 97.9 [degF] Dr. Stone Acosta Work Phone: [facility] Work Phone: 11-23-2021 06:59-0500 Body weight 77.[address] Stone Acosta Work Phone: [facility] Work Phone: 11-23-2021 06:59-0500 Diastolic blood pressure 81 mm[Hg] Dr. Stone Acosta Work Phone: [facility] Work Phone: 11-23-2021 06:59-0500 Heart rate 103 /min Dr. Stone Acosta Work Phone: [facility] Work Phone: 11-23-2021 06:59-0500 Respiratory rate 16 /min Dr. Stone Acosta Work Phone: [facility] Work Phone: 11-23-2021 06:59-0500 SaO2% (BldA) [Mass fraction] 99 % Dr. Stone Acosta Work Phone: [facility] Work Phone: 11-23-2021 06:59-0500 Systolic blood pressure 118 mm[Hg] Dr. Stone Acosta Work Phone: [facility] Work Phone: 11-18-2021 08:06-0500 Body temperature 98.1 [degF] Dr. Stone Acosta Work Phone: [facility] Work Phone: 11-18-2021 08:06-0500 Body weight 76.[address] Stone Acosta Work Phone: [facility] Work Phone: 11-18-2021 08:06-0500 Diastolic blood pressure 89 mm[Hg] Dr. Stone Acosta Work Phone: [facility] Work Phone: 11-18-2021 08:06-0500 Heart rate 73 /min Dr. Stone Acosta Work Phone: [facility] Work Phone: 11-18-2021 08:06-0500 Respiratory rate 14 /min Dr. Stone Acosta Work Phone: [facility] Work Phone: 11-18-2021 08:06-0500 SaO2% (BldA) [Mass fraction] 99 % Dr. Stone Acosta Work Phone: [facility] Work Phone: 11-18-2021 08:06-0500 Systolic blood pressure 126 mm[Hg] Dr. Stone Acosta Work Phone: [facility] Work Phone: 11-16-2021 08:20-0500 Body mass index (BMI) [Ratio] 25.4 kg/m2 Dr. Stone Acosta Work Phone: [facility] Work Phone: 11-16-2021 08:20-0500 Body temperature 97.8 [degF] Dr. Stone Acosta Work Phone: [facility] Work Phone: 11-16-2021 08:20-0500 Body weight 75.[address] Stone Acosta Work Phone: [facility] Work Phone: 11-16-2021 08:20-0500 Diastolic blood pressure 98 mm[Hg] Dr. Stone Acosta Work Phone: [facility] Work Phone: 11-16-2021 08:20-0500 Heart rate 93 /min Dr. Stone Acosta Work Phone: [facility] Work Phone: 11-16-2021 08:20-0500 Respiratory rate 16 /min Dr. Stone Acosta Work Phone: [facility] Work Phone: 11-16-2021 08:20-0500 SaO2% (BldA) [Mass fraction] 98 % Dr. Stone Acosta Work Phone: [facility] Work Phone: 11-16-2021 08:20-0500 Systolic blood pressure 132 mm[Hg] Dr. Stone Acosta Work Phone: [facility] Work Phone: 11-11-2021 09:13-0500 Body temperature 98.4 [degF] Dr. Stone Acosta Work Phone: [facility] Work Phone: 11-11-2021 09:13-0500 Body weight 76.[address] Stone Acosta Work Phone: [facility] Work Phone: 11-11-2021 09:13-0500 Diastolic blood pressure 79 mm[Hg] Dr. Stone Acosta Work Phone: [facility] Work Phone: 11-11-2021 09:13-0500 Heart rate 71 /min Dr. Stone Acosta Work Phone: [facility] Work Phone: 11-11-2021 09:13-0500 Respiratory rate 14 /min Dr. Stone Acosta Work Phone: [facility] Work Phone: 11-11-2021 09:13-0500 SaO2% (BldA) [Mass fraction] 100 % Dr. Stone Acosta Work Phone: [facility] Work Phone: 11-11-2021 09:13-0500 Systolic blood pressure 121 mm[Hg] Dr. Stone Acosta Work Phone: [facility] Work Phone: 11-10-2021 07:03-0500 Body mass index (BMI) [Ratio] 25.1 kg/m2 Dr. Stone Acosta Work Phone: [facility] Work Phone: 11-10-2021 07:03-0500 Body temperature 98.3 [degF] Dr. Stone Acosta Work Phone: [facility] Work Phone: 11-10-2021 07:03-0500 Body weight 75.[address] Stone Acosta Work Phone: [facility] Work Phone: 11-10-2021 07:03-0500 Diastolic blood pressure 85 mm[Hg] Dr. Stone Acosta Work Phone: [facility] Work Phone: 11-10-2021 07:03-0500 Heart rate 96 /min Dr. Stone Acosta Work Phone: [facility] Work Phone: 11-10-2021 07:03-0500 Respiratory rate 16 /min Dr. Stone Acosta Work Phone: [facility] Work Phone: 11-10-2021 07:03-0500 SaO2% (BldA) [Mass fraction] 100 % Dr. Stone Acosta Work Phone: [facility] Work Phone: 11-10-2021 07:03-0500 Systolic blood pressure 122 mm[Hg] Dr. Stone Acosta Work Phone: [facility] Work Phone: 11-08-2021 09:25-0500 Body temperature 98.42 [degF] SHAGGY FULLER MD [facility] 11-08-2021 09:25-0500 Diastolic blood pressure 90 mm[Hg] SHAGGY FULLER MD [facility] 11-08-2021 09:25-0500 Heart rate 110 /min SHAGGY FULLER MD [facility] 11-08-2021 09:25-0500 Respiratory rate 18 /min SHAGGY FULLER MD [facility] 11-08-2021 09:25-0500 Systolic blood pressure 126 mm[Hg] SHAGGY FULLER MD [facility] 11-04-2021 08:31-0500 Body temperature 98 [degF] Dr. Stone Acosta Work Phone: [facility] Work Phone: 11-04-2021 08:31-0500 Body weight [address] Stone Acosta Work Phone: [facility] Work Phone: 11-04-2021 08:31-0500 Diastolic blood pressure 76 mm[Hg] Dr. Stone Acosta Work Phone: [facility] Work Phone: 11-04-2021 08:31-0500 Heart rate 73 /min Dr. Stone Acosta Work Phone: [facility] Work Phone: 11-04-2021 08:31-0500 Respiratory rate 14 /min Dr. Stone Acosta Work Phone: [facility] Work Phone: 11-04-2021 08:31-0500 SaO2% (BldA) [Mass fraction] 99 % Dr. Stone Acosta Work Phone: [facility] Work Phone: 11-04-2021 08:31-0500 Systolic blood pressure 118 mm[Hg] Dr. Stone Acosta Work Phone: [facility] Work Phone: 11-02-2021 14:24-0500 Body mass index (BMI) [Ratio] 26.1 kg/m2 Dr. Stone Acosta Work Phone: [facility] Work Phone: 11-02-2021 14:24-0500 Body temperature 98.8 [degF] Dr. Stone Acosta Work Phone: [facility] Work Phone: 11-02-2021 14:24-0500 Body weight 78.[address] Stone Acosta Work Phone: [facility] Work Phone: 11-02-2021 14:24-0500 Diastolic blood pressure 72 mm[Hg] Dr. Stone Acosta Work Phone: [facility] Work Phone: 11-02-2021 14:24-0500 Heart rate 86 /min Dr. Stone Acosta Work Phone: [facility] Work Phone: 11-02-2021 14:24-0500 Respiratory rate 16 /min Dr. Stone Acosta Work Phone: [facility] Work Phone: 11-02-2021 14:24-0500 SaO2% (BldA) [Mass fraction] 98 % Dr. Stone Acosta Work Phone: [facility] Work Phone: 11-02-2021 14:24-0500 Systolic blood pressure 112 mm[Hg] Dr. Stone Acosta Work Phone: [facility] Work Phone: 10-23-2021 09:20-0500 Body temperature 97.7 [degF] Dr. Stone Acosta Work Phone: [facility] Work Phone: 10-23-2021 09:20-0500 Diastolic blood pressure 76 mm[Hg] Dr. Stone Acosta Work Phone: [facility] Work Phone: 10-23-2021 09:20-0500 Heart rate 70 /min Dr. Stone Acosta Work Phone: [facility] Work Phone: 10-23-2021 09:20-0500 Respiratory rate 16 /min Dr. Stone Acosta Work Phone: [facility] Work Phone: 10-23-2021 09:20-0500 SaO2% (BldA) [Mass fraction] 100 % Dr. Stone Acosta Work Phone: [facility] Work Phone: 10-23-2021 09:20-0500 Systolic blood pressure 104 mm[Hg] Dr. Stone Acosta Work Phone: [facility] Work Phone: 10-23-2021 06:47-0500 Body mass index (BMI) [Ratio] 26 kg/m2 Dr. Stone Acosta Work Phone: [facility] Work Phone: 10-23-2021 06:47-0500 Body weight 77.[address] Stone Aocsta Work Phone: [facility] Work Phone: 10-15-2021 08:09-0500 Body mass index (BMI) [Ratio] 25.2 kg/m2 Dr. Stone Acosta Work Phone: [facility] Work Phone: 10-15-2021 08:09-0500 Body temperature 97.9 [degF] Dr. Stone Acosta Work Phone: [facility] Work Phone: 10-15-2021 08:09-0500 Body weight 75.[address] Stone Acosta Work Phone: [facility] Work Phone: 10-15-2021 08:09-0500 Diastolic blood pressure 81 mm[Hg] Dr. Stone Acosta Work Phone: [facility] Work Phone: 10-15-2021 08:09-0500 Heart rate 91 /min Dr. Stone Acosta Work Phone: [facility] Work Phone: 10-15-2021 08:09-0500 Respiratory rate 18 /min Dr. Stone Acosta Work Phone: [facility] Work Phone: 10-15-2021 08:09-0500 SaO2% (BldA) [Mass fraction] 98 % Dr. Stone Acosta Work Phone: [facility] Work Phone: 10-15-2021 08:09-0500 Systolic blood pressure 142 mm[Hg] Dr. Stone Acosta Work Phone: [facility] Work Phone: 10-14-2021 14:43-0500 Body mass index (BMI) [Ratio] 25.8 kg/m2 Dr. Stone Acosta Work Phone: [facility] Work Phone: 10-14-2021 14:43-0500 Body temperature 98.6 [degF] Dr. Stone Acosta Work Phone: [facility] Work Phone: 10-14-2021 14:43-0500 Body weight 77.[address] Stone Acosta Work Phone: [facility] Work Phone: 10-14-2021 14:43-0500 Diastolic blood pressure 92 mm[Hg] Dr. Stone Acosta Work Phone: [facility] Work Phone: 10-14-2021 14:43-0500 Heart rate 102 /min Dr. Stone Acosta Work Phone: [facility] Work Phone: 10-14-2021 14:43-0500 Respiratory rate 16 /min Dr. Stone Acosta Work Phone: [facility] Work Phone: 10-14-2021 14:43-0500 SaO2% (BldA) [Mass fraction] 99 % Dr. Stone Acosta Work Phone: [facility] Work Phone: 10-14-2021 14:43-0500 Systolic blood pressure 141 mm[Hg] Dr. Stone Acosta Work Phone: [facility] Work Phone: 10-13-2021 08:32-0500 Body mass index (BMI) [Ratio] 25.9 kg/m2 Dr. Stone Acosta Work Phone: [facility] Work Phone: 10-13-2021 08:32-0500 Body temperature 98.3 [degF] Dr. Stone Acosta Work Phone: [facility] Work Phone: 10-13-2021 08:32-0500 Body weight 77.[address] Stone Acosta Work Phone: [facility] Work Phone: 10-13-2021 08:32-0500 Diastolic blood pressure 87 mm[Hg] Dr. Stone Acosta Work Phone: [facility] Work Phone: 10-13-2021 08:32-0500 Heart rate 95 /min Dr. Stone Acosta Work Phone: [facility] Work Phone: 10-13-2021 08:32-0500 Respiratory rate 16 /min Dr. Stone Acosta Work Phone: [facility] Work Phone: 10-13-2021 08:32-0500 SaO2% (BldA) [Mass fraction] 99 % Dr. Stone Acosta Work Phone: [facility] Work Phone: 10-13-2021 08:32-0500 Systolic blood pressure 123 mm[Hg] Dr. Stone Acosta Work Phone: [facility] Work Phone: Encounters Encounter Date Encounter Type Care Provider Facility Start: 12-18-2024 End: 12-18-2024 ambulatory JOSE LALA MANAGER ACTUARIAL-METAL WINDOW FRAME MAKER Facility:[facility] Start: 11-20-2024 End: 11-20-2024 ambulatory Jose Lala GARAGE DOOR INSTALLER Facility:[facility] Start: 10-16-2024 End: 10-16-2024 ambulatory JOSE LALA MANAGER ACTUARIAL-METAL WINDOW FRAME MAKER Facility:[facility] Start: 10-16-2024 End: 10-16-2024 Patient encounter procedure JOSE LALA MANAGER ACTUARIAL-METAL WINDOW FRAME MAKER [facility] Start: 08-14-2024 End: 08-14-2024 ambulatory Jose Lala GARAGE DOOR INSTALLER Facility:[facility] Start: 08-07-2024 End: 08-07-2024 ambulatory Stone Acosta Facility:[facility] Start: 06-18-2024 ambulatory JOSE LALA MANAGER ACTUARIAL-METAL WINDOW FRAME MAKER Fa cility:[facility] Start: 05-17-2024 End: 05-17-2024 ambulatory Stone Osorioglynnus Facility:[facility] Start: 02-14-2024 End: 02-14-2024 ambulatory Jose Lala GARAGE DOOR INSTALLER Facility:[facility] Start: 08-22-2023 End: 08-22-2023 ambulatory GARAGE DOOR INSTALLER-C Jose Lala GARAGE DOOR INSTALLER Work Phone: [facility] Work Phone: Start: 08-22-2023 End: 08-22-2023 Patient encounter procedure GARAGE DOOR INSTALLER-C Jose Lala GARAGE DOOR INSTALLER Work Phone: [facility] Work Phone: Start: 06-29-2023 End: 06-30-2023 ambulatory JOSE LALA MANAGER ACTUARIAL-METAL WINDOW FRAME MAKER Facility:[facility] Start: 06-29-2023 End: 06-29-2023 Patient encounter procedure JOSE LALA MANAGER ACTUARIAL-METAL WINDOW FRAME MAKER [facility] Start: 06-14-2023 End: 06-15-2023 ambulatory JOSE LALA MANAGER ACTUARIAL-METAL WINDOW FRAME MAKER Facility:[facility] Start: 06-14-2023 End: 06-14-2023 Patient encounter procedure JOSE LALA MANAGER ACTUARIAL-METAL WINDOW FRAME MAKER [facility] Start: 06-14-2023 End: 06-14-2023 Well adult monitoring check done JOSE LALA MANAGER ACTUARIAL-METAL WINDOW FRAME MAKER [facility] Start: 05-16-2023 ambulatory JOSE LALA Facility:[facility] Start: 05-16-2023 End: 05-16-2023 Subsequent hospital visit by physician Jose Kline MD Work Phone: [facility] Start: 05-11-2023 Registered Recurring GARAGE DOOR INSTALLER-Jeanne Lala GARAGE DOOR INSTALLER Work Phone: [facility] Start: 05-11-2023 End: 05-11-2023 Patient encounter procedure GARAGE DOOR INSTALLER-C Jose Lala GARAGE DOOR INSTALLER Work Phone: [facility] Work Phone: Start: 02-18-2023 ambulatory JOSE KLINE Facility :[facility] Start: 02-18-2023 End: 02-18-2023 Patient encounter procedure Jose Kline MD Work Phone: [facility] [place] Comment on above: Squamous cell carcin uyen of rectum (Primary Dx) Start: 12-04-2022 End: 12-04-2022 Emergency department patient visit JOSE LALA MANAGER ACTUARIAL-METAL WINDOW FRAME MAKER Facility:[facility] Start: 12-04-2022 End: 12-04-2022 Emergency department patient visit ROBERT CULVER MD [facility] Start: 08-26-2022 ambulatory JOSE KLINE Facility :[facility] Start: 08-26-2022 End: 08-26-2022 Office outpatient visit 15 minutes Jose Kline MD Work Phone: [facility] [place] Comment on above: Squamous cell carcin uyen of rectum (Primary Dx) Start: 08-12-2022 End: 08-12-2022 ambulatory GARAGE DOOR INSTALLER-C Jose Lala GARAGE DOOR INSTALLER Work Phone: [facility] Work Phone: Start: 08-12-2022 End: 08-12-2022 Patient encounter procedure GARAGE DOOR INSTALLER-Jeanne Lala GARAGE DOOR INSTALLER Work Phone: [facility] Start: 08-09-2022 End: 08-09-2022 ambulatory GARAGE DOOR INSTALLER-C Jose Lala GARAGE DOOR INSTALLER Work Phone: [facility] Work Phone: Start: 08-09-2022 End: 08-09-2022 Patient encounter procedure GARAGE DOOR INSTALLER-Jeanne Lala GARAGE DOOR INSTALLER Work Phone: [facility]-Cat Scan, [facility] Start: 07-22-2022 End: 07-23-2022 ambulatory JOSE LALA MANAGER ACTUARIAL-METAL WINDOW FRAME MAKER Facility:[facility] Start: 07-14-2022 Registered Recurring GARAGE DOOR INSTALLER-C Jose Lala GARAGE DOOR INSTALLER Work Phone: [facility] Start: 06-09-2022 End: 06-09-2022 Patient encounter procedure GARAGE DOOR INSTALLER-C Jose Lala GARAGE DOOR INSTALLER Work Phone: [facility] Start: 05-13-2022 End: 05-13-2022 Patient encounter procedure Jose Kline MD Work Phone: [facility] [place] Comment on above: Squamous cell carcin uyen of rectum (Primary Dx) Start: 04-15-2022 End: 04-15-2022 Patient encounter procedure JOSE LALA MANAGER ACTUARIAL-METAL WINDOW FRAME MAKER [facility] Start: 03-22-2022 End: 03-26-2022 Outreach Lab GRIS BARRIOS MANAGER ACTUARIAL-METAL WINDOW FRAME MAKER [facility] Start: 03-22-2022 End: 03-22-2022 Emergency department patient visit GARAGE DOOR INSTALLER-C Jose Lala GARAGE DOOR INSTALLER Work Phone: [facility]-Emergency Department Start: 02-24-2022 End: 02-24-2022 Patient encounter procedure GARAGE DOOR INSTALLER-C Jose Lala GARAGE DOOR INSTALLER Work Phone: [facility]-Nuclear Medicine, [facility] Start: 02-15-2022 End: 02-15-2022 Patient encounter procedure GARAGE DOOR INSTALLER-C Jose Lala GARAGE DOOR INSTALLER Work Phone: [facility] Start: 02-15-2022 Registered Recurring GARAGE DOOR INSTALLER-C Jose Lala GARAGE DOOR INSTALLER Work Phone: [facility] Start: 02-08-2022 End: 02-08-[address] Stone Acosta Work Phone: [facility]-Cat Scan, [facility] Start: 02-05-2022 End: 02-05-2022 Emergency department patient visit ROBERT CULVER MD [facility] Start: 01-12-2022 End: 01-12-[address] Stone Acosta Work Phone: [facility] Start: 01-07-2022 End: 01-07-2022 Office outpatient new 30 minutes Jose Kline MD Work Phone: [facility] [place] Comment on above: Squamous cell carcin uyen of rectum (Primary Dx) Start: 12-28-[address] Chepe Acosta Work Phone: [facility] Start: 12-28-2021 End: 12-28-[address] Stone Acosta Work Phone: [facility] Start: 12-25-2021 End: 12-25-[address] Stone Acosta Work Phone: [facility] Start: 12-21-2021 End: 12-21-[address] Stone Acosta Work Phone: [facility] Start: 12-15-2021 End: 12-15-[address] Stone Acosta Work Phone: [facility] Start: 12-15-2021 End: 12-15-[address] Stone Acosta Work Phone: [facility] Start: 12-11-2021 End: 12-11-[address] Stone Acosta Work Phone: [facility] Start: 12-07-2021 End: 12-07-[address] Stone Acosta Work Phone: [facility] Start: 12-02-2021 End: 12-02-[address] Stone Acosta Work Phone: [facility] Start: 11-30-2021 End: 11-30-[address] Stone Acosta Work Phone: [facility] Start: 11-25-2021 End: 11-25-[address] Stone Acosta Work Phone: [facility] Start: 11-23-2021 End: 11-23-[address] Stone Acosta Work Phone: [facility] Start: 11-18-2021 End: 11-18-[address] Stone Acosta Work Phone: [facility] Start: 11-16-2021 End: 11-16-[address] Stone Acosta Work Phone: [facility] Start: 11-11-2021 End: 11-11-[address] Stone Acosta Work Phone: [facility] Start: 11-10-2021 End: 11-10-[address] Stone Acosta Work Phone: [facility] Start: 11-08-2021 End: 11-08-2021 Emergency department patient visit SHAGGY FULLER MD [facility] Start: 11-04-2021 End: 11-04-[address] Stone Acosta Work Phone: [facility] Start: 11-03-2021 End: 11-03-[address] Stone Acosta Work Phone: [facility] Start: 11-02-2021 End: 11-02-[address] Stone Acosta Work Phone: [facility] Start: 10-27-2021 Non-patient / Non-visit Dr. Stone Acosta Work Phone: [facility] Start: 10-23-2021 Non-patient / Non-visit Dr. Stone Acosta Work Phone: [facility] Start: 10-23-2021 Non-patient / Non-visit Dr. Stone Acosta Work Phone: [facility] Start: 10-23-2021 End: 10-23-2021 Admission to same day surgery center Dr[facility] Stone Acosta [facility] Start: 10-19-2021 End: 10-19-[address] Stone Acosta Work Phone: [facility] Start: 10-15-2021 End: 10-15-[address] Stone Acosta Work Phone: [facility] Start: 10-14-2021 End: 10-14-[address] Stone Acosta Work Phone: [facility] Start: 10-14-2021 End: 10-14-[address] Stone Acosta Work Phone: [facility] Start: 10-13-2021 End: 10-13-[address] Stone Acosta Work Phone: [facility] Start: 08-31-2021 End: 08-31-2021 Patient encounter procedure JOSE MAX [facility] Start: 08-21-2021 End: 08-21-2021 Patient encounter procedure JOSE LALA MANAGER ACTUARIAL-METAL WINDOW FRAME MAKER [facility] Start: 03-31-2017 End: 04-01-2017 Ambulatory LEROY BRANDON Facility:[facility] [place] Procedures Date Procedure Procedure Detail Performing Clinician Start: 02-10-2024 Computerized axial tomography JOSE LALA MANAGER ACTUARIAL-METAL WINDOW FRAME MAKER Comment on above: CT chest, abd, pelvi s-stable/normal Start: 08-22-2023 CT of chest and abdomen GARAGE DOOR INSTALLER-C Jose Lala GARAGE DOOR INSTALLER Work Phone: Start: 05-16-2023 Colonoscopy flx dx w /collj spec when pfrmd Beau Pichardo MANAGER ACTUARIAL-METAL WINDOW FRAME MAKER Work Phone: Start: 08-09-2022 CT of chest and abdomen GARAGE DOOR INSTALLER-C Jose Kg GARAGE DOOR INSTALLER Work Phone: Start: 03-22-2022 Plain chest X-ray GARAGE DOOR INSTALLER-C Jose Lala GARAGE DOOR INSTALLER Work Phone: Start: 02-24-2022 Radionuclide whole b amol bone study GARAGE DOOR INSTALLER-C Jose Lala GARAGE DOOR INSTALLER Work Phone: Start: 02-08-2022 CT of chest and abdomen Dr. Stone Acosta Work Phone: Start: 12-15-[address] [employer] Work Phone: Start: 12-15-2021 CT angiography of ch est with contrast Dr. Stone Acosta Work Phone: Start: 10-23-2021 Radiographic procedu re of chest Dr. Stone Acosta Work Phone: Start: 10-23-2021 O.R. Fluoro for CVP/PICC/PORT Dr. Stone Acosta Work Phone: Start: 01-26-2022 Positron emission tomography with computed tomography Dr. Stone Acosta Work Phone: Start: 10-19-2021 MRI of abdomen with contrast Dr. Stone Acosta Work Phone: Start: 10-19-2021 MRI of pelvis with contrast Dr. Stone Acosta Work Phone: Start: 10-14-2021 CT Chest, Abd, Pel w/Contrast Dr. Stone Acosta Work Phone: Total hysterectomy JOSE WARREN MANAGER ACTUARIAL-METAL WINDOW FRAME MAKER Urine culture GARAGE DOOR INSTALLER-C Jose warren GARAGE DOOR INSTALLER Work Phone: Plan of Treatment Date Care Activity Detail Author Start: 11-14-2027 Tetanus vaccination TETANUS [facility] enter Start: 05-16-2024 Screening for malignant neoplasm of colon COLORECTAL CANCER SCREENING DISCUSSION [facility] Start: 05-27-2023 Influenza vaccination [facility] Start: 05-16-2023 End: 05-16-2023 Patient encounter procedure 05/16/2023 1:15 PM EDT Appointment [facility] [address] [facility] [address] [place] [address] Jose Kline MD [address] [place] [address] [facility] Start: 02-18-2023 End: 02-19-2024 Colonoscopy flx dx w/collj spec when pfrmd DIAGNOSTIC COLONOSCOPY GI/Bronch Routine Squamous cell carcinoma of rectum Expected: 02/18/2023, Expires: 02/19/2024 [facility] Comment on above: Expected: 02/18/2023, Expires: Start: 11-25-2022 End: 11-25-2022 Patient encounter procedure 11/25/2022 Office Visit Colon & Rectal Surgery Jose Kline MD [address] [place] [address] [facility] [place] Start: 09-25-2022 Colonoscopy COLORECTAL CANCER SCREENING DISCUSSION [facility] Start: 09-25-2022 Screening for malignant neoplasm of colon COLORECTAL CANCER SCREENING DISCUSSION [facility] Start: 08-12-2022 MRI of pelvis with contrast Pelvis W/WO Contrast [facility] Work Phone: Start: 08-12-2022 End: 08-12-2022 Patient encounter procedure 08/12/2022 Office Visit Colon & Rectal Surgery Jose Kline MD [address] [place] [address] [facility] [place] Start: 05-27-2022 Influenza vaccination [facility] Start: 05-13-2022 End: 05-13-2022 Patient encounter procedure 05/13/2022 Office Visit Colon & Rectal Surgery Jose Kline MD [address] [place] [address] [facility] [place] Start: 03-22-2022 End: 03-22-2022 [facility] Work Phone: Start: 03-22-2022 Enteric precautions [facility] Work Phone: Start: 02-24-2022 Venous catheter care management [facility] Work Phone: Start: 02-08-2022 Venous catheter care management [facility] Work Phone: Start: 12-15-2021 Venous catheter care management [facility] Work Phone: Start: 11-30-2021 [facility] Start: 11-02-2021 Venous catheter care management [facility] Start: 11-02-2021 [facility] Start: 10-23-2021 Anesthesia access central venous circulation ANESTH VASCULAR ACCESS [facility] Work Phone: Start: 10-23-2021 Insj tunneled ctr vad w/subq port age 5 yr/> INSERT TUNNELED CV CATH [facility] Work Phone: Start: 10-13-2021 Patient referral [facility] Work Phone: Start: 2015 Fasting lipid profile LIPID SCREENING [facility] Start: 2015 Lipid panel LIPID SCREENING [facility] Start: 2015 Screening for malignant neoplasm of breast MAMMOGRAM SCREENING DISCUSSION [facility] Start: 2015 Screening mammography MAMMOGRAM SCREENING DISCUSSION [facility] Start: 1996 Screening for malignant neoplasm of cervix CERVICAL CANCER SCREENING DISCUSSION [facility] Start: 1994 Third diphtheria, tetanus and acellular pertussis (DTaP) vaccination TDAP (ADULT) [facility] Start: 1993 Tetanus vaccination TETANUS [facility] Start: 1990 HIV screening HIV SCREENING DISCUSSION [facility] Start: 1981 PNEUMOCOCCAL VACCINE SERIES (1 - PCV) PNEUMOCOCCAL VACCINE SERIES (1 - PCV) [facility] Start: 1980 COVID-19 VACCINE (1) COVID-19 VACCINE (1) [facility] Start: 1975 COVID-19 VACCINE (#1) COVID-19 VACCINE (#1) [facility] Start: 1975 Hepatitis C antibody, confirmatory test [facility] Start: 1975 Hepatitis C screening HEPATITIS C VIRUS SCREENING [facility] Anoscopy dx w/collj spec br/wa spx when prfrmd [place] ANOSCOPY DX W/COLLJ SPEC BR/WA SPX WHEN PRFRMD [place] Charge Routine Squamous cell carcinoma of rectum Ordered: 03/15/2023 [facility] Comment on above: Ordered: 03/15/2023 Bacteria identified in Urine by Culture Urine Culture [facility] Work Phone: Clostridioides difficile DNA [Presence] in Unspecified specimen by PUNEET with probe detection [facility] Work Phone: Patient Education Coronavirus Di e 2019 (COVID-19): Caring for Yourself or Others [facility] Work Phone: Patient referral [facility] Work Phone: Proctosgmdsc rgd dx w/wo collj spec br/wa spx [place] PROCTOSIGMOIDOSCOPY,R IGID,DIAGNOS [place] Charge Routine Squamous cell carcinoma of rectum Ordered: 05/19/2022 [facility] Comment on above: Ordered: 05/19/2022 Immunizations Immunization Date Immunization Notes Care Provider Fa cility 08-24-2021 SARS-CoV-2 (COVID-19 ) mRNA-1273 vaccine ROBERT CULVER MD [facility] 07-23-2021 SARS-CoV-2 (COVID-19 ) mRNA-1273 vaccine ROBERT CULVER MD [facility] 07-17-2021 Covid (Moderna) Dr. Stone Acosta Work Phone: [facility] 11-14-2017 tetanus toxoid, redu salma diphtheria toxoid, and acellular pertussis vaccine, adsorbed; Translations: [Boostrix (Tdap)] JOSE LALA MANAGER ACTUARIAL-METAL WINDOW FRAME MAKER [facility] Payers Date Payer Category Payer Self-pay [id number] 2021 Unknown [id number] 2021 Unknown [id number] 2021 [id number] 2017 Medicaid [id number] 1975 Unknown [id number] 1975 Unknown [id number] 2.16. [id number] 1975 Unknown [id number] 2.16. [id number] 1975 Unknown [id number] 2.16.8 40.1.068663.3.579.2.627 1975 Unknown [id number] 2.16.8 40.1.300048.3.579.2.627 1975 Unknown [id number] .16.8 40.1.454806.3.579.2.627 1975 Unknown [id number] .16.8 40.1.236039.3.579.2.627 1975 Unknown [id number] .16.8 40.1.066795.3.579.2.627 1975 Unknown [id number] 2.16.8 40.1.381848.3.579.2.627 1975 Unknown [id number] 2.16.8 [id number] Medicaid MEDICAID [id number] Unknown [facility] [id number] Unknown [id number] 2.16.8 [id number] Unknown [id number] 2.16.8 [id number] Unknown [id number] 2.16.8 [id number] Unknown [id number] 2.16.8 [id number] Unknown [id number] 2.16.8 [id number] Unknown [id number] 2.16.8 [id number] Social History Date Type Detail Facility Start: 11-26-2019 Heavy tobacco smoker (finding) [facility] Start: 1975 Sex Assigned At Female A [facility] Start: 01-07-2022 End: 08-26-2022 Tobacco smoking status NHIS Smokes tobacco daily [facility] Start: 01-07-2022 End: 05-16-2023 Cigarettes smoked current (pack per day) - Reported 0.25 [facility] Start: 01-07-2022 End: 08-26-2022 Tobacco use and exposure Smokeless tobacco non-user [facility] Start: 1975 Sex Assigned At Not on file [facility] Start: 01-20-2022 Tobacco smoking status Ex-smoker (fi nding) [facility] Comment on above: quit about 2.5 wks a go, none when on tx Start: 10-19-2021 End: 11-17-2022 Tobacco smoking status NHIS Unknown if ever smoked [facility] Start: 03-22-2022 End: 06-13-2024 Tobacco smoking status Light tobacco smoker (finding) [facility] Comment on above: quit about 2.5 wks a go, none when on tx Trying to quit and i s doing well. Start: 05-13-2022 End: 08-26-2022 Tobacco Comment 6 cigs a day [facility] History of tobacco use Cigarette Smoker [facility] Start: 08-26-2022 End: 05-16-2023 Alcohol intake Current drinker of alcohol (finding) [facility] Start: 02-18-2023 End: 05-16-2023 Tobacco use panel [facility] Start: 05-05-2017 Sex Female (finding) [facility] Functional Status Date Assessment Result Facility 12-04-[address] [facility] 12-04-2022 Functional Status Standard Safet y ID band on, Allergy Band on, Call device within reach, Bed in low position, Wheels locked, Visitor at bedside [facility] 02-05-[address] [facility] Mental Status Date Assessment Result Facility 12-04-2022 Mental Status Orientation Oriented x 4 [facility] 12-04-2022 Mental Status [facility] 03-22-2022 Cognitive function Level Of Cons ciousness Awake;Alert;Appropriate;Follow s Commands [facility] Work Phone: 02-05-2022 Mental Status [facility] 10-23-2021 Cognitive function Voice/Name [facility] Work Phone: Clinical Notes 08-19-2021 to 05-16-2023 Jose Kline MD - 05/16/2023 1:15 PM Reanna Kline MD - 05/16/2023 1:15 PM Baudilio Stevens RN - 05/16/2023 1:15 PM Baudilio Stevens RN - 05/16/2023 1:15 PM EDTPatient Instructions Note Date & Type Note Facility 05-16-2023 History and physical note ENDOSCOPIC PREPROCEDURE HISTORY AND PHYSICAL HISTORY OF PRESENT ILLNESS: Fabby Lion is a 48 y.o. female seen in the pre-procedure area at [facility]. The indication for endoscopic evaluation includes: Squamous cell carcinoma of rectum PAST MEDICAL HISTORY: Past Medical History: Diagnosis Date Bronchitis Rectal cancer SURGICAL HISTORY: Past Surgical History: Procedure Laterality Date COLONOSCOPY DIAGNOSTIC 2020 [place] HYSTERECTOMY MEDICATIONS: No current outpatient medications No current outpatient medications on file. Current Facility-Administered Medications: fentaNYL (SUBLIMAZE) injection 100 mcg, 100 mcg, Intravenous, As directed PRN, Ginny Salas MD Flumazenil (ROMAZICON) injection 0.5 mg, 0.5 mg, Intravenous, As directed PRN, Ginny Salas MD Lactated ringers IV solution, , Intravenous, Continuous, Ginny Salas MD lidocaine 1% buffered in sodium bicarbonate 1-8.4 % injection SOSY 1 mL, 1 mL, Intradermal, PRN, Ginny Salas MD midazolam (VERSED) injection 10 mg, 10 mg, Intravenous, As directed PRN, Ginny Salas MD Naloxone (NARCAN) injection 0.4 mg, 0.4 mg, Intravenous, As directed PRN, Ginny Salas MD simethicone in sterile water 40 mg/1000 mL irrigation 1 Application, 1 Application, Irrigation, As directed PRN, Ginny Salas MD simethicone undiluted 40 mg/0.6 mL irrigation 1 Application, 1 Application, Irrigation, As directed PRN, Ginny Salas MD ALLERGIES: Allergies Allergen Reactions Lisinopril Swelling FOCUSED REVIEW OF SYSTEMS: Negative for nausea, vomiting, abdominal pain and diarrhea VITAL SIGNS: Vitals: 05/16/23 1156 BP: 123/68 Pulse: 77 Resp: 20 Temp: 97.8 degrees F (36.6 degrees C) TempSrc: Infrared SpO2: 99% Height: 1.715 m (5' 7.5) PREPROCEDURE PHYSICAL EXAM: AIRWAY: normal, Mallampati: Class I (complete visualization of the soft palate) HEART: Regular and No murmur PULMONARY: Lungs clear to auscultation bilaterally ABDOMEN: Soft, nontender, nondistended ASSESSMENT: Fabby Lion is a 48 y.o. female is ready for the planned procedure. ASA Class: ASA 1 - Normal health patient PLAN: Will plan to proceed with DIAGNOSTIC COLONOSCOPY using Moderate Sedation. Jose [facility]line MD [facility] History and physical note ENDOSCOPIC PREPROCEDURE HISTORY AND PHYSICAL HISTORY OF PRESENT ILLNESS: Fabby Lion is a 48 y.o. female seen in [facility]. The indication for endoscopic evaluation includes: Squamous cell carcinoma of rectum PAST MEDICAL HISTORY: Past Medical History: Diagnosis Date Bronchitis Rectal cancer SURGICAL HISTORY: Past Surgical History: Procedure Laterality Date COLONOSCOPY DIAGNOSTIC 2020 [place] HYSTERECTOMY MEDICATIONS: No current outpatient medications No current outpatient medications on file. Current Facility-Administered Medications: fentaNYL (SUBLIMAZE) injection 100 mcg, 100 mcg, Intravenous, As directed PRN, Ginny Salas MD Flumazenil (ROMAZICON) injection 0.5 mg, 0.5 mg, Intravenous, As directed PRN, Ginny Salas MD Lactated ringers IV solution, , Intravenous, Continuous, Ginny Salas MD lidocaine 1% buffered in sodium bicarbonate 1-8.4 % injection SOSY 1 mL, 1 mL, Intradermal, PRN, Ginny Salas MD midazolam (VERSED) injection 10 mg, 10 mg, Intravenous, As directed PRN, Ginny Salas MD Naloxone (NARCAN) injection 0.4 mg, 0.4 mg, Intravenous, As directed PRN, Ginny Salas MD simethicone in sterile water 40 mg/1000 mL irrigation 1 Application, 1 Application, Irrigation, As directed PRN, Ginny Salas MD simethicone undiluted 40 mg/0.6 mL irrigation 1 Application, 1 Application, Irrigation, As directed PRN, Ginny Salas MD ALLERGIES: Allergies Allergen Reactions Lisinopril Swelling FOCUSED REVIEW OF SYSTEMS: Negative for nausea, vomiting, abdominal pain and diarrhea VITAL SIGNS: Vitals: 05/16/23 1156 BP: 123/68 Pulse: 77 Resp: 20 Temp: 97.8 degrees F (36.6 degrees C) TempSrc: Infrared SpO2: 99% Height: 1.715 m (5' 7.5) PREPROCEDURE PHYSICAL EXAM: AIRWAY: normal, Mallampati: Class I (complete visualization of the soft palate) HEART: Regular and No murmur PULMONARY: Lungs clear to auscultation bilaterally ABDOMEN: Soft, nontender, nondistended ASSESSMENT: Fabby Lion is a 48 y.o. female is ready for the planned procedure. ASA Class: ASA 1 - Normal health patient PLAN: Will plan to proceed with DIAGNOSTIC COLONOSCOPY using Moderate Sedation. Jose Kline MD documented [facility] this encounter [facility]23 Nurse Note PT Given discharge paperwork and reviewed per MD and nurse. Vaccinator available.Diet and restrictions reviewed as well. Venous access removed no complications noted. Ok to d/c Anesthesia and procedural . Grant Stevens RN documented in this encounter [facility] 05-16-2023 Nurse Surgical operation note PT Given discharge paperwork and reviewed per MD and nurse. Vaccinator available.Diet and restrictions reviewed as well. Venous access removed no complications noted. Ok to d/c Anesthesia and procedural . Grant Stevens RN [facility] 02-18-2023 History of Present illness Narrative CC: Chief Complaint Patient presents with Follow-up Follow exam;pt reports cant make a bm without metamucil; issues with making complete bm. If she doesn't take anything that helps to make a bm, she doesnt go at all. finished CXRT 11/2021 Lesion was originally palpable on the right side of the rectal wall starting just above the anal canal. Attending Attestation I have seen and examined the patient on 02/18/2023. I reviewed the GARAGE DOOR INSTALLER's note and agree with the findings and plan of care as documented. My additions and revisions are included. I was present for the entire exam and procedure. I saw and evaluated the patient with Beau Pichardo. I provided a substantive portion of the care for this patient. I personally performed all aspects of the medical decision making for this encounter. I have reviewed and verified this documentation and it accurately reflects our care. Here for surveillance Exam BP 125/86 Pulse 78 Ht 1.715 m (5' 7.5) Wt 75.8 kg (167 lb) BMI 25.77 kg/m Smoking Status Every Day Body mass index is 25.77 kg/m . General appearance: well , Textile Colorist Formulator: Lyssa Crews RN and External anus: normal PRINCE without mass Anoscopy for history of rectal squamous cell cancer Staff: Eliud Resident: None Textile Colorist Formulator: Lyssa Crews RN No anesthesia Complications: None Findings: Distal rectal mucosa: Normal Internal hemorrhoids: Normal The scar is visible without evidence of recurrence A/ no evidence of disease P/ Colonoscopy as her next 3mo f/up (Please note that portions of this note were completed with a voice recognition program. Efforts were made to edit the dictation but occasionally words are mis-transcribed.) CC: 3 mos Surveillance HPI: 47 y.o. yo female presents for surveillance of a rectal squamous cell cancer that was originally palpable on the right side of the rectal wall, starting just above the anal canal. She completed chemoradiation therapy December 11, 2021--did OK, but had buttock macedo for the first few weeks after. After therapy, she had poor control and was having several accidents. She had a rigid sigmoidoscopy in the office 04/2022, in which Dr. Kline was unable to visualize any masses or evidence of previous disease. With this in mind, she was agreeable for PRINCE/anoscopy for future surveillance. Last colonoscopy: August 2021 S: Presents today feeling well. Takes linzess, metamucil and miralax to maintain a bowel regimen of 1-2, soft, formed BM's. She is out of linzess, has an upcoming appt with GI for new script. Completed CT C/A/P on 02/14/2023, Exam BP 125/86 Pulse 78 Ht 1.715 m (5' 7.5) Wt 75.8 kg (167 lb) BMI 25.77 kg/m Smoking Status Every Day Body mass index is 25.77 kg/m . Gen: NAD Lungs: no respiratory distress, breathing comfortably Abd: soft, nontender, nondistended Anorectal: Normal to inspection. PRINCE reveals no masses, no tenderness, no gross blood. Anoscopy with healthy mucosa, grade I hemorrhoids Ext: warm and dry, no edema Neuro: no gross deficits Textile Colorist Formulator: Norma Crews RN. A/ No evidence of disease. P/ Ms. Lion has not had a 1 year colonoscopy since completion of chemoradiation. Plan for colonoscopy in 3 months, which will also act as our 3 month surveillance exam. Will see her back in clinic in 6 months for continued surveillance. She is agreeable with the plan. The patient was seen, examined, and discussed with Dr. Klien. [facility] Department of Surgery Division of Colorectal Surgery Lyssa Crews RN acted as medical boom pump operator for the procedure/exam/test. documented in this encounter [facility] 02-18-2023 Instructions [facility] - 02/18/2023 11:15 AM EDT Images from the original note were not included. You underwent an anoscopy today. The procedure is generally well tolerated, but occasional discomfort and minimal bleeding can occur. You may immediately return to all of your regular activities. Please call the office or send an [facility] message if you have questions or concerns. Colonoscopy Date: 05/16/23 Location: [place] [address] Arrival Time: 12:15 PM Outpatient Visitor Policies Visitors to all hospital locations must have a hospital-provided visitor sticker visible at all times while in the building Wear a hospital-provided mask over nose AND mouth at all times, if you're experiencing any upper respiratory symptoms (ex. cough, sore throat, fever, etc.) Practice good hand hygiene Visitors are allowed for patients with suspected or confirmed COVID-19 Questions or concerns about visitation policies If you have questions or concerns, you can contact our Patient Experience team at: [facility], [facility], [facility] Hospital: [phone] [facility]: [phone] [facility]: [phone] [facility]: [phone] 1 Day Bowel Prep with MiraLAX and Dulcolax Preparing for Your Colonoscopy or Procedure Review this information when you receive it so that you are prepared for your procedure. Look for more information from Endoscopy Scheduling or check with your doctor. For a print-friendly version, please visit [email or web address]. Important to know: You may need to make changes to your medicines up to 10 days before your procedure. You will need to change your diet starting 5 days before and start this bowel prep at 3 p.m. the day before. You need to have an adult come with you to your procedure. If there are major changes to your health, please call [phone]. Your procedure may need to be changed for your safety. Buy at the store: Large bottle (8.3 oz or 238 gm) of liquid laxative polyethylene glycol 3350, such as MiraLAX 4 tablets Dulcolax laxative tablets (5 mg each) 2 sport drinks (32 oz size), such as Gatorade (no red or purple) For diabetes: use sugar free option Starting 5 days before your procedure, do not eat: [place] Nuts Leafy green Popcorn Fruit with skin or seeds Whole grain or high fiber foods Do not take vitamins with iron, iron tablets, or fiber supplements. Medicine changes Tell your doctor ALL the medicines you take, including vitamins, supplements, and herbal remedies. Your doctor will tell you if you should stop taking any of them before this procedure and how soon to do it. If you take medicines for diabetes: Do not take oral diabetes medicines on the day of your procedure. If you take injection medicines for diabetes, such as insulin, ask the doctor who ordered the medicines how to adjust your medicines for this procedure. If you take a blood thinner (anticoagulant or antiplatelet) medicine: Your doctor may tell you to stop taking it a certain number of days before your procedure. Or your doctor may tell you to keep taking it. Make sure that you understand exactly what your doctor wants you to do. Ask the doctor who ordered this medicine if it is safe for you to stop taking it before this procedure. If you have had a stent, especially a stent in your heart or brain, DO NOT STOP taking your blood thinner medicine until you are instructed by the doctor who placed the stent. If your doctor has told you NOT to stop taking these medicines before this procedure, please call [phone] and ask to talk to a nurse. If you take aspirin or NSAIDs, such as ibuprofen (Advil, Motrin, and Nuprin), naproxen (Aleve), or celecoxib (Celebrex) for pain, you do NOT need to stop taking these medicines before this procedure. You should continue all your other medicines with a sip of water unless you are instructed to make a change before this procedure. About this prep You will drink a medicine mixture to clear your bowels of all solid matter. You will need to go to the bathroom often, and your stool will get very watery. The prep may cause you to have cramps or feel bloated. The prep medicine may not taste good. You need to take all of it so your bowels are clear. Your bowels are clear when you are passing pale yellow liquid without any stool. If you vomit up your prep medicine, have not had any bowel movements, or your bowels are not clear after this prep, please call [phone]. The procedure may need to be rescheduled. If you have a history of heart failure, kidney disease, cirrhosis of the liver, electrolyte problems, or chronic constipation, you may need a different bowel prep medicine. Please contact the nurse at [phone] for instructions. Day before your procedure Start Clear Liquid Diet Do not eat any solid food or eat or drink any milk products until after your procedure is done. Drink only clear liquids. You can drink clear and light colored liquids up to 4 hours before your procedure. Do not have anything with red or purple dye. Okay to have: Water, flavored water, or ice chips Coffee or tea (no milk or cream) Danielle cris or lemon-timbi-sha shoshone soda Fruit juices you can see through, such as apple or white grape Gatorade, other sports drinks, or other drink mixes like Kiet-Aid Popsicles (no fruit or cream) (no red or purple) Jell-O or other gelatin, without fruit (no red or purple) Clear broth or bouillon Do NOT have: Alcoholic drinks Milk Smoothies Milkshakes Cream Yogurt [place] juice Grapefruit juice Tomato juice Soup (other than clear broth) Red or purple drinks At 3 p.m., take 4 Dulcolax tablets. Pour all of the MiraLAX and the two bottles of sports drink into a larger container and shake well. Put it into the refrigerator to keep cool. At 6 p.m., drink one (8-ounce) glass of the mixture every 10 to 15 minutes until you finish half of it. It may help to use a straw. Put the rest back in the refrigerator. 6 hours before your procedure 6 hours before your procedure, drink the rest of the mixture. You may need to set your alarm to get up to finish your prep medicine. Drink two (8-ounce) glasses of clear liquids after you finish the mixture. You can drink clear liquids up to 4 hours before your procedure. You can take a small sip of water to take any allowed medicines within 2 hours of your procedure. Your procedure will be delayed or canceled if you drink anything other than a sip of water with medicines. This is important to make sure it is safe to give you sedation or anesthesia. If you have illegal drugs or alcohol in your system, your procedure may be rescheduled for your safety. Arriving for the procedure Arrive by the arrival time on your letter, so the staff can get you ready. Expect to be here 2 to 4 hours for your procedure and recovery time. Please leave all valuables and jewelry, including piercings, at home. Female patients should come prepared to give a urine sample in case a procedure is needed. Bring these with you to your procedure: List of all medicines, including prescription and over the counter medicines, and any vitamin or herbal products you are taking List of your allergies List of medical conditions and previous surgeries Copy of your advanced directive, such as a living will or power of environmental attorney Photo identification, insurance card, and co-payment, if needed You need to have an adult come with you to your procedure You will be given medicine to help you relax during the procedure. For your safety, you will need a responsible adult to drive you home after the procedure. Your refrigerated company driver needs to check in for the procedure with you. If your refrigerated company driver doesn t check in with you, we will need to speak to your refrigerated company driver before we can start your procedure. Your procedure will be delayed or canceled if we cannot speak to your refrigerated company driver. If your refrigerated company driver leaves the facility during the procedure, they need to give the staff a phone number where they can be reached. Your refrigerated company driver needs to be within 30 minutes of the procedure location. If you take a cab, bus, or medical transportation, an adult other than the refrigerated company driver needs to ride with you for your safety. You should have an adult with you to help you at home after the procedure for at least 6 hours[address] not [address], operate machinery, drink alcohol, or make any legal decisions until the day after your procedure. If you have questions or concerns about your prep for your test, please call [phone]. For more information about having a colonoscopy at [facility], [email or web address]. 2013 - January 28, 2023, [facility] documented in this encounter [facility] 12-04-2022 Hospital Discharge instructions Patient Education 12/04/2022 08:46:07 Chest Pain, Uncertain Cause Uncertain Causes of Chest Pain Chest pain can happen for a number of reasons. Sometimes the cause can't be determined. If your condition does not seem serious, and your pain does not appear to be coming from your heart, your healthcare provider may recommend watching it closely. Sometimes the signs of a serious problem take more time to appear. Many problems not related to your heart can cause chest pain. These include: Musculoskeletal. Costochondritis is an inflammation of the tissues around the ribs that can occur from trauma or overuse injuries, or a strain of the muscles of the chest wall Respiratory. Pneumonia, collapsed lung (pneumothorax), or inflammation of the lining of the chest and lungs (pleurisy) Gastrointestinal. Esophageal reflux, heartburn, ulcers, or gallbladder disease Anxiety and panic disorders Nerve compression and inflammation Rare miscellaneous problems such as aortic aneurysm (a swelling of the large artery coming out of the heart) or pulmonary embolism (a blood clot in the lungs) Home care After your visit, follow these recommendations: Rest today and avoid strenuous activity. Take any prescribed medicine as directed. Be aware of any recurrent chest pain and notice any changes Follow-up care Follow up with your healthcare provider if you do not start to feel better within 24 hours, or as advised. Call 911 Call 911 if any of these occur: A change in the type of pain: if it feels different, becomes more severe, lasts longer, or begins to spread into your shoulder, arm, neck, jaw or back Shortness of breath or increased pain with breathing Weakness, dizziness, or fainting Rapid heart beat Crushing sensation in your chest When to seek medical advice Call your healthcare provider right away if any of the following occur: Cough with dark colored sputum (phlegm) or blood Fever of 100.4 F (38 C) or higher, or as directed by your healthcare provider Swelling, pain or redness in one leg [id number] [employer]. [address] [place] [address], [place] [address]. All rights reserved. This information is not intended as a substitute for professional medical care. Always follow your healthcare professional's instructions. 12/04/2022 08:45:56 PAR'STHESIAS Paraesthesias Paraesthesia refers to a burning or prickling sensation that is sometimes felt in the hands, arms, legs or feet. It can also occur in other parts of the body. It can also feel like tingling or numbness, skin crawling or itching. The sensation is usually painless. Most people have experienced pins and needles. This feeling happens when legs have been crossed for too long and pressure is placed on a nerve. This is a temporary paraesthesia. It quickly goes away once the pressure is relieved. There are many possible causes for chronic paraesthesias. These include such disorders as stroke, herniated disk (pressing on a nerve), trapped nerve in the shoulder, elbow or wrist (such as carpal tunnel syndrome), vitamin deficiencies or even certain medicines. Laboratory tests are needed to make an accurate diagnosis. These tests may include blood tests, X-ray, CT (computerized tomography) scan or a muscle test (electromyography). Depending on the cause, treatment may include physical therapy. Home Care: 1.Do not make any changes to your medicines without advice from your doctor. 2.If vitamins have been prescribed, remember to take them daily at the recommended dose. 3.Because of a decrease in feeling, a numb hand or foot may be more prone to injury. Take care to protect these areas from cuts, bumps, bruises, macedo or other injury. Keep your nails trimmed and wash your hands and feet often. Wear shoes that fit well to avoid pressure points, blisters and ulcers. Look at your hands and feet carefully (including the soles of your feet and between your toes) at least once a week and notify your doctor of any open wounds or signs of infection. Follow Up with your doctor or as advised by our staff. You may need further testing to determine the exact cause of your paraesthesia. [NOTE: If blood tests, X-ray, CT scan or electromyography were done, specialists will review them. You will be notified of any new findings that may affect your care.] Get Prompt Medical Attention if any of the following occur: Numbness or weakness of the face, one arm or one leg Slurred speech, confusion, trouble speaking, walking or seeing Severe headache, fainting spell, dizziness or seizure Chest, arm, neck or upper back pain Loss of bladder or bowel control Open wound with redness, swelling or pus [phone] [employer]. [address] [place] [address]. All rights reserved. This information is not intended as a substitute for professional medical care. Always follow your healthcare professional's instructions. Follow Up Care 12/04/2022 07:12:09 With:JOSE LALA Address: [address] [place] [phone] When:2-4 days With:Go to emergency room if symptoms worsen Address:Unknown When:2-[address] [facility] 12-04-2022 Note Discharge Instructions Thank you for allowing [facility] to assist you with your healthcare needs. The following is important discharge information regarding your hospital visit. Diagnosis from Today's Visit Paresthesia Dizziness What to Do Next Instructions from Your Care Team No qualifying data available. Post Acute Orders No qualifying data available. You Need to Schedule the Following Appointments Follow Up with JOSE LALA When Within 2-4 days Where: [address] [place] [address] [phone] Follow Up with Go to emergency room if symptoms worsen When Within 2-4 days Allergies Peanuts Shellfish lisinopril Medications Please ask your primary doctor or pharmacist before taking any other medication not listed, including over the counter drugs, herbal medications, vitamins and or supplements as they may interact with your home medications. What How Much When Why Instructions Last Dose Unchanged gabapentin (gabapentin 100 mg oral capsule) 1 cap by mouth Two (2) times a day Upper extremity neuropathy Duration: 30 Days Unchanged linaclotide (Linzess 145 mcg oral capsule) 1 cap by mouth Once a day as needed for as she feels she needs it Dr. Veliz Unchanged multivitamin (Multivitamin) 1 tab(s) by mouth Every day Unchanged polyethylene glycol 3350 (Glycolax oral powder for reconstitution) 17 gram(s) by mouth Once a day Please take this list to your next doctor s visit. Bring all medications you take, including over the counter medications, herbals and other supplements with you to your doctor s visit. Patients and families are reminded to discard old lists and to update any records with all medication providers or retail pharmacies. Education Materials Uncertain Causes of Chest Pain Chest pain can happen for a number of reasons. Sometimes the cause can't be determined. If your condition does not seem serious, and your pain does not appear to be coming from your heart, your healthcare provider may recommend watching it closely. Sometimes the signs of a serious problem take more time to appear. Many problems not related to your heart can cause chest pain. These include: Musculoskeletal. Costochondritis is an inflammation of the tissues around the ribs that can occur from trauma or overuse injuries, or a strain of the muscles of the chest wall Respiratory. Pneumonia, collapsed lung (pneumothorax), or inflammation of the lining of the chest and lungs (pleurisy) Gastrointestinal. Esophageal reflux, heartburn, ulcers, or gallbladder disease Anxiety and panic disorders Nerve compression and inflammation Rare miscellaneous problems such as aortic aneurysm (a swelling of the large artery coming out of the heart) or pulmonary embolism (a blood clot in the lungs) Home care After your visit, follow these recommendations: Rest today and avoid strenuous activity. Take any prescribed medicine as directed. Be aware of any recurrent chest pain and notice any changes Follow-up care Follow up with your healthcare provider if you do not start to feel better within 24 hours, or as advised. Call 911 Call 911 if any of these occur: A change in the type of pain: if it feels different, becomes more severe, lasts longer, or begins to spread into your shoulder, arm, neck, jaw or back Shortness of breath or increased pain with breathing Weakness, dizziness, or fainting Rapid heart beat Crushing sensation in your chest When to seek medical advice Call your healthcare provider right away if any of the following occur: Cough with dark colored sputum (phlegm) or blood Fever of 100.4 F (38 C) or higher, or as directed by your healthcare provider Swelling, pain or redness in one leg [phone] [employer] [address] [place] [address]. All rights reserved. This information is not intended as a substitute for professional medical care. Always follow your healthcare professional's instructions. Paraesthesias Paraesthesia refers to a burning or prickling sensation that is sometimes felt in the hands, arms, legs or feet. It can also occur in other parts of the body. It can also feel like tingling or numbness, skin crawling or itching. The sensation is usually painless. Most people have experienced pins and needles. This feeling happens when legs have been crossed for too long and pressure is placed on a nerve. This is a temporary paraesthesia. It quickly goes away once the pressure is relieved. There are many possible causes for chronic paraesthesias. These include such disorders as stroke, herniated disk (pressing on a nerve), trapped nerve in the shoulder, elbow or wrist (such as carpal tunnel syndrome), vitamin deficiencies or even certain medicines. Laboratory tests are needed to make an accurate diagnosis. These tests may include blood tests, X-ray, CT (computerized tomography) scan or a muscle test (electromyography). Depending on the cause, treatment may include physical therapy. Home Care: 1. Do not make any changes to your medicines without advice from your doctor. 2. If vitamins have been prescribed, remember to take them daily at the recommended dose. 3. Because of a decrease in feeling, a numb hand or foot may be more prone to injury. Take care to protect these areas from cuts, bumps, bruises, macedo or other injury. Keep your nails trimmed and wash your hands and feet often. Wear shoes that fit well to avoid pressure points, blisters and ulcers. Look at your hands and feet carefully (including the soles of your feet and between your toes) at least once a week and notify your doctor of any open wounds or signs of infection. Follow Up with your doctor or as advised by our staff. You may need further testing to determine the exact cause of your paraesthesia. [NOTE: If blood tests, X-ray, CT scan or electromyography were done, specialists will review them. You will be notified of any new findings that may affect your care.] Get Prompt Medical Attention if any of the following occur: Numbness or weakness of the face, one arm or one leg Slurred speech, confusion, trouble speaking, walking or seeing Severe headache, fainting spell, dizziness or seizure Chest, arm, neck or upper back pain Loss of bladder or bowel control Open wound with redness, swelling or pus [phone] [employer] [address] [place] [address]. All rights reserved. This information is not intended as a substitute for professional medical care. Always follow your healthcare professional's instructions. Additional Information VACCINATE! IT SAVES LIVES! Members of the community who have not yet received the COVID-19 vaccine and would like to receive it can visit one of [facility] vaccine clinics. There are many vaccine clinic locations within the [facility]. For locations and available times, please visit www.gettheshot.coronavirus.iowa.g ov/. It is important to note that some COVID mobile vaccine clinics are held outdoors and may be canceled in rainy or stormy conditions. To learn more about pediatric vaccinations (ages 5-11), we invite you to visit the [facility] webpage. https://www.akviblasts.org/pa ges/6473-Vvpkp-Dczomrcfgir-Freque kjqb-Gmpoa-Lqmrazsen.html To learn more about the COVID-19 vaccine, we invite you to visit the CDC website for a list of frequently asked questions. https://www.cdc.gov/coronavirus/2 019-ncov/vaccines/faq.html [facility] [employer]Chart Patient Portal Access Instructions: Stay connected with your healthcare team and access your personal medical information anytime with the [facility] [employer]Chart Patient Portal. If you would like a full copy of your medical records please contact the [facility] Medical Records Department Tuesday through Tuesday between 8a.m. and 4:30p.m. Please follow the directions below to access the portal: 1.Access the email account you provided upon registration to the [facility].2.Look for an invitation email from [facility].3.Open the email and access the invitation link: Accept Invitation to [employer]4.Fill in the required hanks to create your account. Sign into [email or web address] with your username and password that you created in the above steps to stay up to date. You can then view a summary of results, a summary of your visits, and the ability to download your summaries to your computer or send the information securely to a physician. Remember that your healthcare information is confidential, so carefully consider who you will allow to register on the [employer] Patient Portal for access to your information. You can also access the [employer] Patient Portal on the [employer]. Simply click on Health Records under Health Data and then click on the [employer] logo. HOW TO SAFELY DISPOSE OF PRESCRIPTION MEDICATIONS Please use one of the following methods to safely dispose of your unused medications. 1.Use a drug disposal kit: the drug disposal pouch allows you to safely discard your old and unused drugs. Ask your nurse to give you one when you are discharged.2.Visit a local take-back location: Many local pharmacies and police departments have programs that collect old and unwanted prescription drugs. Call your local pharmacy or go to http://Ossia.dotHIV/6X0Ee9q to find one close to you.3.Make use of household items: Use cat litter or old coffee grounds to dispose medications if other options are not available. Mix your drugs with these household products, seal them in an airtight container and throw it into the garbage. Call [facility]: [phone] to be sure your drugs can be disposed of in this way. Some medicines may require a different approach.4.Never flush your medications down the toilet. IF YOU HAVE BEEN PRESCRIBED AN OPIOIDS FOR PAIN If you have been prescribed an opioid (such as hydrocodone, oxycodone or morphine), it is critical to understand the possible side effects and risks of opioid pain medications. Even when taken as directed, opioids can have several side effects including: Tolerance, meaning you might need to take more of a medication for the same pain relief. Nausea, vomiting and/or constipation. Sleepiness, dizziness, dry mouth, confusion, depression or itching. Physical dependence, meaning you have withdrawal symptoms when a medication is stopped ? this can develop within a few days. KNOW YOUR RESPONSIBILITIES It is important to know exactly how much and how often to take the opioid pain medications you are prescribed. Never take opioids in higher amounts or more often than prescribed. Do not combine opioids with alcohol or other drugs that cause drowsiness, such as benzodiazepines, also known as benzos, including diazepam and alprazolam, muscle relaxants or sleep aids. Never sell or share prescription opioids. This is illegal. Store opioids in a secure place and out of reach of others (including children, family, friends and visitors). The last page(s) of this document has been signed and retained as a CHART COPY Signatures Patient Education Materials Chest Pain, Uncertain Cause PAR'STHESIAS Medication Leaflets My discharge plan and instructions have been reviewed and explained to me and I,FABBY LION understand my current condition and have read and understand these discharge instructions. I have received a written copy of the plan/instructions. If I have questions, I am aware that I should contact my doctor. Patient/Lactation Nurse Signature: Date/Time: Relationship to Patient: ____ Witness Name/Signature: Date/Time: [facility] 12-04-2022 Note ORIGINAL EXAMINATION: ONE XRAY VIEW OF THE CHEST12/04/2022 8:20 am COMPARISON: 10/07/2020 HISTORY: ORDERING SYSTEM PROVIDED HISTORY: Reason for Exam: chest pain FINDINGS: The cardiomediastinal silhouette is within normal limits. No focal pulmonary consolidation, pneumothorax, or large pleural effusion visualized. No acute osseous abnormalities identified. Mildly degenerative thoracic spine and acromioclavicular joints. IMPRESSION: No acute findings. I have personally reviewed the images of this examination and agree with the resident's finding and interpretation. Interpreted by: Toan Negrete MD Preliminary Report By: Rik Cochran Electronically signed By Toan Negrete MD Dictated Date: 12/04/2022 8:21:13 AM Prelim Date: 12/04/2022 8:22:55 AM Sign Date: 12/04/2022 8:27:50 AM Ordering Provider: [facility] 12-04-2022 Note ORIGINAL EXAMINATION: ONE XRAY VIEW OF THE CHEST12/04/2022 8:20 am COMPARISON: 10/07/2020 HISTORY: ORDERING SYSTEM PROVIDED HISTORY: Reason for Exam: chest pain FINDINGS: The cardiomediastinal silhouette is within normal limits. No focal pulmonary consolidation, pneumothorax, or large pleural effusion visualized. No acute osseous abnormalities identified. Mildly degenerative thoracic spine and acromioclavicular joints. IMPRESSION: No acute findings. I have personally reviewed the images of this examination and agree with the resident's finding and interpretation. Interpreted by: Toan Negrete MD Preliminary Report By: Rik Cochran Electronically signed By Toan Negrete MD Dictated Date: 12/04/2022 8:21:13 AM Prelim Date: 12/04/2022 8:22:55 AM Sign Date: 12/04/2022 8:27:50 AM Ordering Provider: [facility] 08-26-2022 History of Present illness Narrative CC: Chief Complaint Patient presents with Follow-up Hx of SCC of rectum, denies rectal bleeding, occasionally has sharp pains that come and go, denies new lesions Lesion was originally palpable on the right side of the rectal wall starting just above the anal canal. HPI: 47 y.o. yo female presents for surveillance of a rectal squamous cell cancer She is asymptomatic Exam Ht 1.727 m (5' 8) Wt 75.8 kg (167 lb 1.6 oz) BMI 25.41 kg/m Smoking Status Every Day Body mass index is 25.41 kg/m . General appearance: Well [employer] Colorist Formulator: Marianela Martinez RN External anus with mild radiation change. Digital exam without any palpable mass. A/ no evidence of disease on exam today. P/ Return to clinic in three months for repeat exam Marianela Martinez RN acted as boom pump operator for this exam. documented in this encounter [facility] 05-13-2022 History of Present illness Narrative CC: Chief Complaint Patient presents with Follow-up Follow up- squamous cell cancer of rectum HPI: 47 y.o. yo female presents for ongoing surveillance for a squamous cell cancer of the rectum She has been feeling quite well Has scans coming up August 12. Getting CT and MRI. Exam BP 118/73 (BP Location: Left arm, BP Position: Sitting) Pulse 94 Ht 1.727 m (5' 8) Wt 75.3 kg (166 lb) BMI 25.24 kg/m Smoking Status Current Every Day Smoker Body mass index is 25.24 kg/m . General appearance: [employer] Colorist Formulator: Jailyn Fairchild RN External anus is normal. I do not palpate anything on rectal exam Rigid sigmoidoscopy for rectal squamous cell cancer Staff: Eliud Resident: None No anesthesia Complications: None Extent: 10 cm Findings: She had some solid stool in the rectum but I was able to see the wall overlying the prior tumor. I do not see any large scar there A/ no evidence of disease. Based on today's rigid sig I think palpation will be sufficient for surveillance P/ Return to clinic in three months for ongoing surveillance I was the medical boom pump operator for this exam. documented in this encounter [facility] 05-13-2022 Instructions Jailyn Fairchild RN - 05/13/2022 11:30 AM EDT You underwent a rigid sigmoidoscopy today. The procedure is generally well tolerated, however, you may feel the urge to pass gas or have a bowel movement. You may also experience mild crampy abdominal discomfort. This is caused by the air that was inserted during the exam and can be relieved by passing gas. In addition, minimal bleeding can occur. These symptoms do not last long. You may immediately return to all of your regular activities. Please call the office or send an [email or web address] message if you have any questions or concerns. documented in this encounter [facility] 03-22-2022 Evaluation + Plan note Future Scheduled TestsClostridium difficile (PCR) 03/22/22Lipid Profile 04/01/22 [facility] 02-05-2022 Hospital Discharge instructions Patient Education 02/05/2022 14:56:40 Human Bite Human Bite The mouth has bacteria (germs) that can cause a very severe infection. If the tooth of another person has cut your skin, there is a chance of a serious infection developing within the first few days. Bites to the hand are especially prone to infection of the skin (such as cellulitis). Diseases (such as hepatitis B or C, or herpes simplex virus) may also be transmitted through human bites. Human bite wounds may be either sutured closed or left open to heal depending on location, length of time since the bite, severity, signs of infection, and other concerns. Your doctor may want to do blood tests, a wound culture, X-ray, ultrasound, or others. Your doctor will explain if you need any of these and discuss your results. Home care The following will help you care for your wound at home: 1. Most skin wounds heal within 10 days. However, a human bite wound has a higher risk of getting infected. Look at the bite area each day for the next 4 days for signs of infection (listed below). 2. For certain types of wounds, an antibiotic will be prescribed. This will depend on several factors such as severity, surrounding structure injury, depth, location, and others. Take all antibiotics and medicines as directed until they are all gone. 3. If the bite is on the hand, arm, foot, or leg, limit the use of that extremity and keep it elevated for the first 24 hours. 4. You may be given a tetanus shot if needed. 5. Don't suck on the wound. This may introduce more bacteria. Follow-up care Follow up with your healthcare provider, or this facility as directed. When to seek medical advice Call your healthcare provider right away if you have any of these: Spreading redness Increased pain or swelling Fever of 100.4 F (38 C) or higher, or as directed by your healthcare provider Colored fluid or pus draining from the wound Any signs of nerve or tendon damage, such as inability to bend a joint or feel an area of skin [id number] [employer] [address] [place] [address]. All rights reserved. This information is not intended as a substitute for professional medical care. Always follow your healthcare professional's instructions. Follow Up Care 02/05/2022 14:45:13 With:OJSE LALA Address: [address] [place] [address] [place] [address]- [phone] When:2-4 days With:Go to emergency room if symptoms worsen Address:Unknown When:2-[address] [facility] 01-07-2022 Instructions Jose Kline MD - 01/07/2022 10:15 AM EDT Images from the original note were not included. documented in this encounter [facility] 01-07-2022 History of Present illness Narrative Images from the original note were not included. CC: Chief Complaint Patient presents with Consult Pt completed chemoradiation; tumor Referred by: Kia Villa Mansour HPI: 46 y.o. yo female referred by Kia Villa DO for rectal squamous cell cancer. She finished chemoradiation on December 11. Did OK through it but had buttock macedo for first couple of weeks afterward. She moved her 12/28 appointment back to now because of that. almos thas complete control of her bowels. But has accident sometimes in the morning. Had a lot of accidents during and immediately after radiation. Colonoscopy: 09/25/21 Bleeding: none now Stool consistency: soft. Taking miralax and linzess ifneeded. 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 Current Outpatient Medications: oxyCODONE 5 MG tablet, Take 5 mg by mouth as needed., Disp: , Rfl: Has hydrocort supp to use PRN. Exam BP 110/78 Pulse 98 Ht 1.727 m (5' 8) Wt 74.4 kg (164 lb) BMI 24.94 kg/m Smoking Status Current Every Day Smoker Body mass index is 24.94 kg/m . General appearance: Well [employer] Colorist Formulator: Ysabel Siddiqui PRINCE: Normal anal canal. The mass is palpable on the right side of the rectal wall starting just above the anal canal. It was difficult to say whether it definitely involves the sphincters at this point. Based on the preoperative imaging and description I do think it is shrunk quite a bit. The overall area was about 3 x 5 cm but this was mostly flat with the contour of the right lateral rectal wall. It did not feel fixed to the surrounding pelvic structures A/ 46-year-old woman with squamous cell carcinoma of the rectum. She seems to be having a good response to chemoradiation. P/ We discussed that the operative approach if necessary would likely be an abdominal perineal resection. As I had discussed with Medical and Radiation Oncology preop our hope is that we can treat this as a squamous cell cancer and simply observe it from here assuming it completely resolved documented in this encounter [facility] 11-08-2021 Hospital Discharge instructions Patient Education 11/08/2021 09:41:34 Understanding Chemotherapy Understanding Chemotherapy Chemotherapy is often given in an outpatient setting. This means you don t stay overnight in the hospital. Chemotherapy (chemo) is a treatment for cancer. Chemo can be a single medicine. Or, it can be a combination of medicines. When used alone or along with surgery or radiation therapy, it can often shrink a tumor or prevent its spread. How chemotherapy works Chemotherapy kills cells that grow quickly. Many kinds of cancer cells grow fast. But many healthy cells grow fast, too. These include cells of the mouth, stomach lining, bone marrow, skin and hair. After chemo, these cells are able to grow back, but cancer cells . That is why side effects such as hair loss, nausea, and low blood cell counts get better with time. Usually, chemotherapy is given in cycles of treatment. A cycle is the time from 1 cancer treatment to the next. For example, a 3-week cycle is treatment given 2 weeks in a row, and then 1 week off. A 3-week cycle may also be treatment given once every 3 weeks. Time between treatments during the cycle is needed to let normal cells recover before the next treatment. The goals of chemotherapy Chemo can kill cancer cells. As a result, it may do the following: Shrink cancer before surgery. This is called neoadjuvent care. Kill cancer cells that may remain after surgery. This is called adjuvent care. Reduce symptoms such as pain. This is known as palliative care. Control cancer for a period of time. This is also a kind of palliative care. Cause remission. This means there is no sign of the cancer on medical tests. Cure the cancer. This means there is no sign of the cancer years after treatment. Side effects of chemotherapy Because healthy cells are also damaged with chemo, you may have side effects such as: Nausea and vomiting Hair loss Low red blood cell count (anemia) Infections Bleeding Mouth and throat sores Skin changes such as dry skin, itching, and acne Lack of interest in sex Trouble remembering and concentrating Stress and depression Long-term risks There are some long-term risks with chemo. But the benefits usually outweigh the risks. Risks depend on the type of chemo used. Some possible long-term risks include: Infertility Damage to some organs, such as the heart, kidneys, liver, or lungs Lasting nerve damage Another cancer growing at a later time [id number] [employer] [address] [place] [address], [place] [address]. All rights reserved. This information is not intended as a substitute for professional medical care. Always follow your healthcare professional's instructions. Follow Up Care 11/08/2021 09:21:41 With:JOSE LLAA Address: [phone] When:2-[address] [facility] 09-04-2021 Evaluation + Plan note Future Scheduled TestsComplete Blood Count 09/04/21CT Abdomen and Pelvis w/ contrast 08/28/21MRI Liver 09/01/21 [facility] 08-28-2021 Evaluation + Plan note Future Scheduled TestsCT Abdomen and Pelvis w/ contrast 08/28/21 [facility] 08-19-2021 Evaluation + Plan note Future Scheduled TestsCT Abdomen w/ Contrast 08/19/21 [facility] Evaluation + Plan note Future Appointments Appointment Date:03/25/2022 05:00:00 PM Scheduled Provider:JOSE LALA [facility] Appointment Type:PC OV Future Scheduled TestsComplete Blood Count 09/04/21CT Abdomen and Pelvis w/ contrast 08/28/21MRI Liver 09/01/21 [facility] Evaluation + Plan note Future Appointments Appointment Date:04/01/2022 11:00:00 AM Scheduled Provider:JOSE LALA [facility] Appointment Type:PC OV Future Scheduled TestsClostridium difficile (PCR) 03/22/22Complete Blood Count 09/04/21CT Abdomen and Pelvis w/ contrast 08/28/21MRI Liver 09/01/21 [facility] Evaluation + Plan note Future Appointments Appointment Date:09/29/2022 04:00:00 PM Scheduled Provider:JOSE LALA Location:[facility] Appointment Type:PC OV Future Scheduled TestsClostridium difficile (PCR) 03/22/22Complete Blood Count 09/04/21Lipid Profile 04/01/22CT Abdomen and Pelvis w/ contrast 08/28/21MRI Liver 09/01/21 [facility] Evaluation + Plan note Future Appointments Appointment Date:07/01/2023 11:30:00 AM Scheduled Provider:JOSE LALA Location:[facility] Appointment Type:PC OV Future Scheduled TestsMA Mammo Screening Bilateral w/ Alfred 06/10/23 [facility] Evaluation + Plan note Future Appointments Appointment Date:07/01/2023 11:30:00 AM Scheduled Provider:JOSE LALA Location:[facility] Appointment Type:PC OV [facility] Evaluation + Plan note Future Appointments Appointment Date:10/23/2024 11:30:00 AM Scheduled Provider:JOSE LALA Location:[facility] Appointment Type:PC OV Appointment Date:12/05/2024 03:30:00 PM Scheduled Provider:JOSE LALA Location:[facility] Appointment Type:PC OV Appointment Date:06/20/2025 02:30:00 PM Scheduled Provider:JOSE LALA Location:[facility] Appointment Type:PC Wellness Annual Diagnostic Tests PendingChlamydia trachomatis PCR 10/16/24N. gonorrhoeae PCR 10/16/24 Future Scheduled TestsMA Mammo Screening Bilateral w/ Alfred 07/03/24 [facility] Evaluation note Diagnosis 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 [facility] Diagnosis Onset Date Resolution Status Squamous cell carcinoma of rectum acute Liver lesion chronic Encounter for education acut e Squamous cell carcinoma of rectum acute Liver lesion chronic Encounter for insertion of venous access port acute Squamous cell carcinoma of rectum acute Liver lesion chronic Squamous cell carcinoma of rectum acute Liver lesion chronic Port-A-Cath in place acute Squamous cell carcinoma of rectum acute CINV (chemotherapy-induced nausea and vomiting) acute Diarrhea due to drug acute Mucositis (ulcerative) due to antineoplastic therapy acute Squamous cell carcinoma of rectum acute Liver lesion chronic Squamous cell carcinoma of rectum acute Squamous cell carcinoma of rectum acute Liver lesion chronic Squamous cell carcinoma of rectum acute Squamous cell carcinoma of rectum acute Liver lesion chronic Squamous cell carcinoma of rectum acute Squamous cell carcinoma of rectum acute Liver lesion chronic Squamous cell carcinoma of rectum acute CINV (chemotherapy-induced nausea and vomiting) acute Diarrhea due to drug acute Mucositis (ulcerative) due to antineoplastic therapy acute Squamous cell carcinoma of rectum acute Liver lesion chronic Squamous cell carcinoma of rectum acute Chills acute CINV (chemotherapy-induced nausea and vomiting) acute Hemoptysis acute Radiation dermatitis acute Squamous cell carcinoma of rectum acute Liver lesion chronic Radiation dermatitis acute Squamous cell carcinoma of rectum acute Liver lesion chronic Squamous cell carcinoma of rectum acute Squamous cell carcinoma of rectum acute Liver lesion chronic Squamous cell carcinoma of rectum acute [facility] Work Phone: Evaluation note* Diagnosis Onset Date Resolution Status Squamous cell carcinoma of rectum acute Liver lesion chronic Squamous cell carcinoma of rectum acute Squamous cell carcinoma of rectum acute Liver lesion chronic Squamous cell carcinoma of rectum acute CINV (chemotherapy-induced nausea and vomiting) acute Diarrhea due to drug acute Mucositis (ulcerative) due to antineoplastic therapy acute Squamous cell carcinoma of rectum acute Liver lesion chronic Squamous cell carcinoma of rectum acute Chills acute CINV (chemotherapy-induced nausea and vomiting) acute Hemoptysis acute Radiation dermatitis acute Squamous cell carcinoma of rectum acute Liver lesion chronic Radiation dermatitis acute Squamous cell carcinoma of rectum acute Liver lesion chronic Squamous cell carcinoma of rectum acute Squamous cell carcinoma of rectum acute Liver lesion chronic Squamous cell carcinoma of rectum acute Squamous cell carcinoma of rectum acute Liver lesion [facility] Work Phone: Evaluation note* Diagnosis 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 [facility] Diagnosis Onset Date Resolution Status Squamous cell carcinoma of rectum acute Liver lesion [facility] Work Phone: Evaluation note* Diagnosis 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 Hospital Discharge instructions No data available for this section [facility] Work [facility]: Progress note No data available for this section [facility] Summary Purpose Family History No Family History Records Found Relationship Condition Age at Onset Recorded Date/T jyoti grandfather Malignant neoplasm of colon Unknown mother Diabetes mellitus Unknown Hypertension Unknown grandmother Kidney disorder Unknown father Malignant neoplasm Unknown Advance Directives No Advanced Directives Records Found Advance Directive Response Recorded Date/ Time Advance Directives No December 15 2 022 1:21pm Living Will No December 15, 2021 1:21pm Power of Senior Wind Turbine Technician No December 15 1:21pm Name of Medical Power of Senior Wind Turbine Technician dgskip Rosamaria Berkowitz connor October 19, 2021 1:51pm Advance Directive Response Recorded Date/ Time Advance Directives on File No December 15, 2021 1:21pm Advance Directives No December 15 2 022 1:21pm Living Will No March 22, 2022 3:24pm Power of Senior Wind Turbine Technician No March 22 3:24pm Advance Directive Response Recorded Date/ Time Advance Directives on File No December 15, 2021 12:21pm Advance Directives No December 15 2 022 12:21pm Living Will No March 22, 2022 2:24pm Power of Senior Wind Turbine Technician No March 22 2:24pm Chief Complaint and Reason for Visit Chief Complaint NEW CHEMO ED STAGING RECTAL SQUAMOUS CELL Port Placement Consult Malignant neoplasm of rectum/LIVER LESION INSERTION VASCULAR PORT RT POSS LT INSERTION VASCULAR PORT RT POSS LT NEW START - LABS - 5FU/MITOMYCIN SUTURE REMOVAL 10/23 OTV TOX CHECK - LABS OTV 1 WK - LABS OTV 1 WK - LABS OTV 4 WKS - LABS - 5FU/MITOMYCIN OTV 1 WK - LABS OTV 1 WK - LABS R/O PE 1 WK - LABS followup rectal 4 WKS - LABS INTIAL TREATMENT STRATEGY followup rectal COLON CANCER Reason for Visit Squamous cell carcin uyen of rectum Liver lesion Encounter for education Squamous cell carcinoma of rectum Liver lesion Encounter for insertion of venous access port Squamous cell carcinoma of rectum Liver lesion Squamous cell carcinoma of rectum Liver lesion Port-A-Cath in place Squamous cell carcinoma of rectum CINV (chemotherapy-induced nausea and vomiting) Diarrhea due to drug Mucositis (ulcerative) due to antineoplastic therapy Squamous cell carcinoma of rectum Liver lesion 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 Liver lesion 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 Liver lesion 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 Liver lesion Squamous cell carcinoma of rectum CINV (chemotherapy-induced nausea and vomiting) Diarrhea due to drug Mucositis (ulcerative) due to antineoplastic therapy Squamous cell carcinoma of rectum Liver lesion Squamous cell carcinoma of rectum Chills CINV (chemotherapy-induced nausea and vomiting) Hemoptysis Radiation dermatitis Squamous cell carcinoma of rectum Liver lesion Radiation dermatitis Squamous cell carcinoma of rectum Liver lesion 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 Liver lesion Squamous cell carcinoma of rectum Chief Complaint 1 WK - LABS OTV 4 WKS - LABS - 5FU/MITOMYCIN OTV 1 WK - LABS OTV 1 WK - LABS R/O PE 1 WK - LABS followup rectal 4 WKS - LABS followup rectal COLON CANCER INTIAL TREATMENT STRATEGY F/U AFTER SCANS - LABS RECTAL CANCER ABD PAIN/CHILLS Reason for Visit Squamous cell carcin uyen of rectum Liver lesion 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 Liver lesion Squamous cell carcinoma of rectum CINV (chemotherapy-induced nausea and vomiting) Diarrhea due to drug Mucositis (ulcerative) due to antineoplastic therapy Squamous cell carcinoma of rectum Liver lesion Squamous cell carcinoma of rectum Chills CINV (chemotherapy-induced nausea and vomiting) Hemoptysis Radiation dermatitis Squamous cell carcinoma of rectum Liver lesion Radiation dermatitis Squamous cell carcinoma of rectum Liver lesion 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 Liver lesion 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 Liver lesion Chief Complaint 3 MO - LABS INTIAL TREATMENT STRATEGY F/U TREATED SCC OF RECTUM F/U TREATMENT SCC OF RECTUM Reason for Visit Squamous cell carcin uyen of rectum Liver lesion Chief Complaint 6 MO - LABS INTIAL TREATMENT STRATEGY F/U RECTAL CANCER *IV & ORAL CONTRAST* Reason for Visit Squamous cell carcin uyen of rectum Reason for Referral Specialty Diagnoses / Procedures Referred By Contac t Referred To Contact Diagnoses Squamous cell carcinoma of rectum Procedures DIAGNOSTIC COLONOSCOPY [place] COLONOSCOPY STOMA DX INCLUDING COLLJ SPEC SPX Beau Pichardo, MANAGER ACTUARIAL-METAL WINDOW FRAME MAKER [address] [place] [address] Referral ID Status Reason Start Date Expiration Date V isits Requested Visits Authorized [id number] New Request 02/18/2023 03/14/2024 1 1 Additional Source Comments INFORMATION SOURCE (unrecogn ized section and content) DATE CREATED AUTHOR 03/22/2018 [facility] DATE CREATED AUTHOR AUTHOR'S ORGANIZ ATION 05/17/2023 [facility] DATE CREATED AUTHOR AUTHOR'S ORGANIZ ATION 07/03/2023 [facility] ([place]) DATE CREATED AUTHOR AUTHOR'S ORGANIZ ATION 12/24/2024 [facility] DATE CREATED AUTHOR AUTHOR'S ORGANIZ ATION 02/13/2025 [facility] Reason for Visit (unrecogniz ed section and content) Reason Comments Consult Pt completed chemora diation; tumor Specialty Diagnoses / Procedures Referred By Contac t Referred To Contact Colon & Rectal Surgery Diagnoses Malignant neoplasm of rectum Kia Villa, DO [address] [facility] [address] [place] [address] Jose Kline MD [address] [place] [address] Referral ID Status Reason Start Date Expiration Date V isits Requested Visits Authorized [id number] New Request 10/19/2021 11/13/2022 1 1 Reason Comments Follow-up Follow up- squamous cell cancer of rectum Reason Comments Follow-up Hx of SCC of rectum, denies rectal bleeding, occasionally has sharp pains that come and go, denies new lesions Reason Comments Follow-up Follow exam;pt repor ts cant make a bm without metamucil; issues with making complete bm. If she doesn't take anything that helps to make a bm, she doesnt go at all. Specialty Diagnoses / Procedures Referred By Contac t Referred To Contact Diagnoses Squamous cell carcinoma of rectum Procedures DIAGNOSTIC COLONOSCOPY [place] COLONOSCOPY STOMA DX INCLUDING COLLJ SPEC SPX Beau Pichardo, YADIRAMETAL WINDOW FRAME MAKER [address] [place] [address] Referral ID Status Reason Start Date Expiration Date Visits Re quested Visits Authorized [id number] Closed 02/18/2023 03/14/2024 1 1 Care Team (unrecognized sect ion and content) Title Vehicle Service Attendant Relationship Specialty Start Date End Date AlphonsoJose ortiz [address] [place] [address] PCP - General Certified Nurse Practitioner 08/26/22 Title Vehicle Service Attendant Relationship Specialty Start Date End Date Jose Lala [address] [place] [phone] PCP - General Certified Nurse Practitioner 08/26/22 Title Vehicle Service Attendant Relationship Specialty Start Date End Date Jose Lala [address] [place] [phone] PCP - General Certified Nurse Practitioner 08/26/22 Team Status: Active Member Role Status Dates Alfredo Hassan Family Provider Active Jose Lala GARAGE DOOR INSTALLER, GARAGE DOOR INSTALLER-C Primary Care Provider Active Team Status: Inactive Member Role Status Dates Jose Lala GARAGE DOOR INSTALLER, GARAGE DOOR INSTALLER-C Primary Care Provider, Referring Provider Active Dr. Stone Acosta MD Attending Provider Active Team Status: Active Member Role Status Dates Dr. Kia Villa DO Attending Provider Active Dr. Rogelio Veliz MD Referring Provider Active Team Status: Inactive Member Role Status Dates Jose Lala GARAGE DOOR INSTALLER, GARAGE DOOR INSTALLER-C Primary Care Provider Active Dr. Stone Acosta MD Attending Provider, Referrin g Provider Active Goals (unrecognized section and content) Goals may be documented in a n alternate section Care Team (unrecognized sect ion and content) Care Team Personnel Name: JOSE LALA MANAGER ACTUARIAL-METAL WINDOW FRAME MAKER Position: P4 Advanced Practice Nurse Med Service: Active Provider Member Role: Primary Care Physician Address: Address: [address] [facility] [place] [address]- Name: JOSE KLINE MD Member Role: Radiation Oncologist Address: Address: [address] [place] [address]- Name: STONE ACOSTA MD Member Role: Oncologist Address: Address: [address] [place] [address]- [place] Name: ROGELIO VELIZ MD Position: Physician Med Service: Admitting Member Role: Nurse Charge Rn Address: Address: [address] [facility] [address] [place] [address]- [place] Name: AGGIE DESIR MD Member Role: Surgeon Address: Address: [address] [place] [address]- [place] Name: KIA VILLA DO Member Role: Radiation Oncologist Address: Address: [address] [facility]- [place] [address]- [place] Care Team Related Persons Name: ROSAMARIA LION Address: Home [address] [place], [place] [id number] Address: Temporary [address] [place], [place] [id number] Name: TRACI LION Address: Home [address] [place], [place] [phone] [place] Care Team Personnel Name: JOSE LALA Position: Advanced Practice Nurse Med Service: Active Provider Member Role: Primary Care Physician Address: Address: [address] [place] [address]- [place] Name: JOSE KLINE MD Member Role: Radiation Oncologist Address: Address: [address] [place] [address] [place] Name: STONE ACOSTA MD Member Role: Oncologist Address: Address: [address] [place] [address]- [place] Name: ROGELIO VELIZ MD Position: Physician Med Service: Admitting Member Role: Nurse Charge Rn Address: Address: [address] [facility] [address] [place] [address]- [place] Name: AGGIE DESIR MD Member Role: Surgeon Address: Address: [address] [place] [address]- [place] Name: KIA VILLA DO Member Role: Radiation Oncologist Address: Address: [address] [facility] [place] [address]- [place] Care Team Related Persons Name: ROSAMARIA LION Address: Home [address] [place], [place] [id number] Address: Temporary [address] [place], [place] [id number] Name: TRACI LION Address: Home [address] [place], [place] [phone] Care Team Personnel Name: JOSE LALA APRN-[facility] Position: Advanced Environmental Health Technician Member Role: Primary Care Physician Address: Address: [address] [facility] [place] [address]- Name: JOSE KLINE MD Member Role: Radiation Oncologist Address: Address: [address] [place] [address] [place] Name: STONE ACOSTA MD Member Role: Oncologist Address: Address: [address] [place] [address]- [place] Name: ROGEILO VELIZ MD Position: Physician Member Role: Nurse Charge Rn Address: Address: [address] [facility] [address] [place] [address]- Name: AGGIE DESIR MD Member Role: Surgeon Address: Address: [address] [place] [address]- Name: KIA VILLA DO Member Role: Radiation Oncologist Address: Address: [address] [facility] [place] [address]- Name: QUINTIN Flynn Position: AO RN Member Role: ED RN Name: ROBERT CULVER MD Position: ED Physician Member Role: ED Physician Address: Address: [facility] [address] [place] [address]- Care Team Related Persons Name: ROSAMARIA LION Address: Home [address] [place], [place] [phone] Address: [facility] [address] [place], [place] [id number] Name: TRACI LION Address: Home [address] [place], [place] [phone] FOR RECORDS PERTAINING TO PATIENTS WHO ARE OR HAVE BEEN ENROLLED IN A CHEMICAL DEPENDENCY/SUBSTANCEABUSE PROGRAM, SOME INFORMATION MAY BE OMITTED. This clinical summary was aggregated from multiple sources. Caution should be exercised in using it in the provision of clinical care. This summary normalizes information from multiple sources, and as a consequence, information in this document may materially change the coding, format and clinical context of patient data. In addition, data may be omitted in some cases. CLINICAL DECISIONS SHOULD BE BASED ON THE PRIMARY CLINICAL RECORDS. [employer] provides no warranty or guarantee of the accuracy or completeness of information in this document.
== END | disposition home or self-care (01) ==
LOC: CT 07:01
PROVIDERS: PCP Nurse Practitioner Primary Care; Referring Provider Internal Medicine Hematology & Oncology; Visit Provider Internal Medicine Hematology & Oncology
DX: C20 Malignant neoplasm of rectum (principal)
CPT/HCPCS: 71260; 74177; Q9967